=== PATIENT | male | born 1935 | race Caucasian/White ===

== ENCOUNTER 2016-09-28 08:55 | Inpatient (IN) | payer MEDICARE, MEDICAID ==
[~2016-09-28] VITALS: Ht 157.5 cm; Wt 78.5 kg
[~2016-09-28 08:55] MED LIST: /ALEN70TA OR; /ALEN70TA PO; /TAMS4CA OR; /TAMS4CA PO; ACET500C; ACET65TA; ACET65TA PO; ACTO45TA; ALPH0.156; ALPH0.156 OD; ASPI325T OR; BRIM1OPD OD; CALC12502; COLA100C2 OR; DORZOLAMIDE; ECOT325T5; FERR325T OR; FIBERCON PO; GLUC5TAB3 PO; ISOP1SOL; ISOP1SOL OD; KEFL500C OR; LACT10SO8; LACTULOSE 10 GM/15 ML PO; LASI40TA; LISI40TA; LOVA20TA2 PO; NEBUMIS2; NORV5TAB PO; OYSCO PO; OYST500T OR; OYST500T58 OR; THERGRAN PO; TIMO0.5S OD; TIMO0.5S3 OU; TRUSOPT; TRUSOPT 2% OU; TRUSOPT OU; ZYPR15TA PO; [UNRECOGNIZED DRUG - OTHER] PO
[2016-09-28] MEDS ORDERED: LISI-538 PO ×2 (09:35→12:32)
[2016-09-28] MEDS ORDERED: OLAN15TA PO ×2 (09:35→12:32)
[2016-09-28] MEDS ORDERED: LOVA20TA2 PO ×2 (09:35→12:32)
[2016-09-28] MEDS ORDERED: AZIT250T3 PO (09:35)
[2016-09-28] MEDS ORDERED: TIMO5OPD OU (09:35)
[2016-09-28] MEDS ORDERED: FLOM5CAP PO ×2 (09:35→12:32)
[2016-09-28] MEDS ORDERED: BRIM2OPD OU (09:35)
[2016-09-28] MEDS ORDERED: LACT20EL PO (09:35)
[2016-09-28] MEDS ORDERED: AMLO5TAB2 PO ×2 (09:35→12:32)
[2016-09-28] MEDS ORDERED: PILO1OPD OU (09:35)
[2016-09-28] MEDS ORDERED: FURO40TA2 PO ×2 (09:35→12:32)
[2016-09-28] MEDS ORDERED: FINA5TAB2 PO ×2 (09:35→12:32)
[2016-09-28] MEDS ORDERED: IPRATROPIUM 0.5MG/ALBUTEROL 2.5MG INH SOL UD 3ML (DUONEB)(J7620) As Ordered ONE (09:56)
[2016-09-28] MEDS ORDERED: IPRATROPIUM 0.5MG/ALBUTEROL 2.5MG INH SOL UD 3ML (DUONEB)(J7620) NEB ONE (10:00)
[2016-09-28 10:08] LABS: CREATININE FOR GFR 2.68 MG/DL (0.70-1.30); GLOMERULAR FILTRATION RATE 24.5 (>35); POTASSIUM SERUM 4.3 MEQ/L (3.5-5.1)
[2016-09-28 10:18] LABS: BASO % 0.1 % (0.0-1.0); EOS % 1.7 % (0.0-3.0); LARGE UNSTAINED CELL # 0.1 K/mm3 (0.0-0.4); LARGE UNSTAINED CELL % 2.9 % (0.0-4.0); LYMPH # 0.3 K/mm3 (1.5-4.5); MEAN CORPUSCULAR HEMOGLOBIN 30.7 pg (27.0-33.0); MEAN CORPUSCULAR VOLUME 93.1 fl (80.0-96.0); MONO # 0.2 K/mm3 (0.0-0.8); MONO % 7.2 % (0.0-5.0); NEUTROPHILS # 1.6 K/mm3 (1.8-7.7); NEUTROPHILS % 75.1 % (36.0-66.0); PLATELET COUNT, AUTOMATED 111 k/mm3 (150-450); RED CELL DISTRIBUTION WIDTH 12.9 % (11.5-14.5); WHITE BLOOD COUNT 2.2 K/mm3 (4.0-10.0)
--- NOTE | 2016-09-28 10:57 | REP ---
CHEST, TWO VIEWS: Two views of the chest are performed and compared to a prior study of 06/12/2015. There is somewhat poor ventilation. Chronic fibrotic changes are seen. There appears to be mild left basilar atelectasis/infiltrate in the retrocardiac region. Heart is not significantly enlarged. There is calcification of the thoracic aorta. The mediastinal silhouette is unchanged. There are degenerative changes of the spine. IMPRESSION: Chronic changes. Mild left lower lobe atelectasis/infiltrate. Signed by Lane Mitchell MD 09/29/2016 04:35 P
[2016-09-28] MEDS ORDERED: LACT10SO29 PO (12:32)
[2016-09-28] MEDS ORDERED: STOO100C PO (12:32)
[2016-09-28] MEDS ORDERED: FIBE625T PO (12:32)
[2016-09-28] MEDS ORDERED: TYLE500T78 PO (12:32)
[2016-09-28] MEDS ORDERED: ASPI325T PO (12:32)
[2016-09-28] MEDS ORDERED: DORZ2OPD OD (12:36)
[2016-09-28] MEDS ORDERED: PILO1OPD OD (12:36)
[2016-09-28] MEDS ORDERED: ALPH0.156 OD (12:36)
[2016-09-28] MEDS ORDERED: TIMO5OPD OD (12:36)
[2016-09-28] MEDS ORDERED: GLUCAGON FOR INJ 1 MG VIAL (J1610) SC PRN (12:45)
[2016-09-28] MEDS ORDERED: IPRATROPIUM 0.5MG/ALBUTEROL 2.5MG INH SOL UD 3ML (DUONEB)(J7620) NEB PRN (12:45)
[2016-09-28] MEDS ORDERED: GLUCOSE 4 GM CHEW TABLET PO PRN (12:45)
[2016-09-28] MEDS ORDERED: ONDANSETRON 4MG/2ML VIAL (J2405) IV PRN (12:45)
[2016-09-28] MEDS ORDERED: NS 1,000 ML IV ONE (12:45)
[2016-09-28] MEDS ORDERED: ONDANSETRON 4 MG TAB (S0181) PO PRN (12:45)
[2016-09-28] MEDS ORDERED: BENZONATATE 100 MG CAP PO PRN (12:45)
[2016-09-28] MEDS ORDERED: DEXTROSE 50% 50 ML SYRINGE IV PRN (12:45)
--- NOTE | 2016-09-28 12:59 | REP ---
CT study of the chest without contrast: History: Chronic fibrosis. Question left lower lobe infiltrate on chest x-ray. CT findings: There is no evidence of pleural effusion. A very small quantity of pericardial fluid is seen. There is left coronary artery vascular calcification and some aortic arch calcification is seen. No hilar or mediastinal mass or adenopathy is appreciated. There are somewhat crowded bronchovascular markings in the lower lobes bilaterally perhaps related to relatively low level of inspiration. No focal infiltrate is appreciated. No extrathoracic mass or adenopathy is appreciated. The tracheal airway is somewhat narrowed through the mid thoracic trachea with the air filled esophagus indenting its posterior wall. No esophageal or tracheal mass lesion is seen. The main pulmonary artery is somewhat prominent in diameter 3.8 cm. Question pulmonary arterial hypertension. No adrenal lesion is seen. There are gallstones visible in the dependent portion the gallbladder. The visualized upper abdominal structures are otherwise unremarkable. No bony destructive lesion is appreciated. Impression: 1. No focal infiltrate. Relatively low level of inspiration. 2. Tracheal airway is somewhat narrowed diffusely and indented by the esophagus posterior to it. Question tracheomalacia. No tracheal or esophageal mass lesion seen. 3. Cholelithiasis. 4. Somewhat dilated main pulmonary arteries may reflect pulmonary arterial hypertension. Signed by Chase Corbin MD 09/28/2016 05:45 P
--- NOTE | 2016-09-28 13:41 | HPEPDOC ---
Medical History and Physical Date of Admission Sep 28, 2016 at 12:39 History and Physical HISTORY AND PHYSICAL Date of admission: 09/28/2016 PCP: Dr. Daley and Dr. Sharpe Chief complaint: Breathing hard HPI: 80-year-old male with mental retardation, history of BPH status post TURP, history of anemia with prior GI bleed, chronic constipation with normal colonoscopy, diabetes mellitus type 2, blindness secondary to glaucoma, hypertension, hyperlipidemia, CK D stage III, COPD, osteoporosis with prior hip fracture, psychiatric disorder NOS who resides in a private home with his caregiver. His caregiver was concerned today that he was breathing hard so she sent him to the emergency department. The caregiver is not with him, and the patient is unable to participate in an interview. The information on this history and physical is obtained from discussion with the ER physician, the patient's housing case manager, and prior records. By report, the patient has had URI symptoms for the last 3 or 4 days and is on a Z-Natanael. He currently has taken 4 days worth of the Z-Natanael. In the last day or so he's been noted to have subjective fever, cough, and was breathing harder, so he was sent to the emergency department. The housing case manager tells me that when she spoke to the caregiver, the caregiver reported no other concerns. Upon review of prior records, it appears that the patient had a Santos catheter at some point, but when I asked the housing case manager about this, she tells me that he has not needed a Santos catheter in many years. Of note, I attempted to call the caregiver to obtain more information, but I received a voicemail. I left my name and the phone number for the answering service on the voicemail. Past medical history: mental retardation, history of BPH status post TURP, history of anemia with prior GI bleed, chronic constipation with normal colonoscopy, diabetes mellitus type 2, blindness secondary to glaucoma, hypertension, hyperlipidemia, CK D stage III, COPD, osteoporosis with prior hip fracture, psychiatric disorder NOS Past surgical history: TURP, repair of hip fracture, cataract surgery, appendectomy, hemorrhoidectomy Family history: Unknown Social history: Patient resides with his caregiver, whose name is Cindi Murphy. Her phone number is [phone]. His housing case manager is Jenn Marie, whose phone number is [phone]. Jenn tells me that the patient does not have any advanced directives. However, she thinks that it is possible that Cidni Murphy is the healthcare proxy. She states that Cindi Murphy usually makes the patient' s healthcare decisions, but she does not know if the patient has any legal paperwork to support this. He has a remote history of smoking, and does not drink any alcohol. Allergies: NKDA Review of systems: Unable to obtain secondary to the patient's mental retardation and decreased IQ Home meds: See below Physical exam: Vital signs: Vital Sign - Last 24 Hours 09/28/16 09/28/16 09/28/16 09/28/16 09:00 09:17 09:47 10:25 Temp 99.8 Pulse 95 88 Resp 28 B/P 111/50 Pulse Ox 87 O2 Delivery Room Air Nasal Cannula Nasal Cannula O2 Flow Rate 2 2 2 09/28/16 10:30 Temp 99.1 Pulse 84 Resp 22 B/P 116/57 Pulse Ox 97 O2 Delivery Nasal Cannula O2 Flow Rate 2 Gen.: awake, alert, no acute distress Eyes: Extraocular movements intact, right pupil is large and irregularly shaped ENT: Moist mucous membranes Cardiovascular: RRR, no murmurs rubs or gallops Lungs: diffuse rhonchi Abdomen: Soft, NT/ND, normal BS Musculoskeletal: normal range of motion Extremities: No peripheral edema Neuro: speech is extremely garbled; he is AAO to name and being in hospital; per the , this is baseline for him Labs and radiology: See below Sodium 148 BUN 76, creatinine 2.68 WBC 2.2, hemoglobin 9.5, platelets 111 MCV within normal limits Flu screen negative Chest x-ray shows concern for possible left lower lobe infiltrate versus atelectasis CT of the chest does not show any concern for infiltrate Assessment and plan: 80-year-old male with mental retardation, history of BPH status post TURP, history of anemia with prior GI bleed, chronic constipation with normal colonoscopy, diabetes mellitus type 2, blindness secondary to glaucoma, hypertension, hyperlipidemia, CK D stage III, COPD, osteoporosis with prior hip fracture, psychiatric disorder NOS who is admitted with acute on chronic kidney disease and pancytopenia. 1. Acute on chronic kidney disease stage III: The most recent creatinine we can find is from his PCPs records in February 2016. At this time, his creatinine was 1.5. Upon review of our EMR, it appears that his creatinine prior to that was also in the mid ones. In our ER, his creatinine is 2.68. I suspect that this is largely secondary to bladder outlet obstruction from enlarged prostate. The patient was having difficulty voiding while I was examining him, and a bladder scan did reveal greater than 600 mL. It is unknown if he has been having trouble urinating recently or not. However, given his history of BPH requiring TURP and even Santos catheter, I suspect that this is largely contributing. We' ll place a Santos catheter at this time. Additionally, we will check FEurea as the patient has been on Lasix, as well as renal ultrasound. Given that the patient has not been feeling well for the last week, I suspect that is also quite possible he has not been eating or drinking particularly well. We'll start him on some very gentle fluid hydration. We will hold his home Lasix and TIMOTHY inhibitor. We will also hold his home lactulose, as I'm concerned that this may contribute to volume depletion. 2. Pancytopenia: It is unclear where this is coming from. His MCV is within normal limits. We will check iron studies, B12, folate, and reticulocyte count. I do not believe that this needs to be entirely worked up while in the hospital , and I suspect that as his kidney function improves, he could follow up with hematology outpatient. He may eventually benefit from a peripheral smear. 3. URI: The patient's chest x-ray does not show any evidence of pneumonia, and he is afebrile. We will give him his one last dose of Zithromax tomorrow to complete his Z-Natanael. We also will use Tessalon Perles, DuoNeb's, and 3 days of Afrin for symptomatic treatment. A flu screen is negative, but we will check a respiratory virus panel. 4. Diabetes mellitus type 2: The patient's home medication list does not report any medications for this. We will check fingersticks and use sliding-scale insulin while in-house. 5. Chronic constipation: Continue home bowel regimen, with the exception of the lactulose. 6. Blindness secondary to glaucoma: Continue home eyedrops 7. BPH status post TURP: As mentioned above, I believe that this is contributing to his acute on chronic kidney disease. In addition to placing a Santos at this time, we will continue his home Flomax and finasteride. 8. Hypertension: Continue home Norvasc. We are holding his Lasix and TIMOTHY inhibitor given his acute on chronic kidney disease. 9. Hyperlipidemia: Continue home statin. 10. Psychiatric disorder NOS: Continue home Zyprexa. DVT prophylaxis: SCDs, given his chronic kidney disease and pancytopenia Dispo: admit as an inpatient to the service of Dr. Resendez CODE STATUS: Full code at this time. As mentioned above, his housing case manager is unaware of any advanced directives. His housing case manager states that Cindi Murphy usually makes his medical decisions, but she is unsure if Ms. Murphy has any legal power of tax associate attorney. I have attempted to call Ms. Murphy, and reach only a voicemail. Both Jenn's and Cindi's phone numbers are listed above under social history. Vital Signs see above Laboratory Data Labs 24H Laboratory Tests 2 09/28/16 09:38: Anion Gap 11, White Blood Count 2.2L, Red Blood Count 3.09L, Hemoglobin 9.5L, Hematocrit 28.7L, Mean Corpuscular Volume 93.1, Mean Corpuscular Hemoglobin 30.7 , Mean Corpuscular Hemoglobin Concent 33.0, Red Cell Distribution Width 12.9, Platelet Count 111L, Neutrophils (%) (Auto) 75.1H, Lymphocytes (%) (Auto) 13.0L , Monocytes (%) (Auto) 7.2H, Eosinophils (%) (Auto) 1.7, Basophils (%) (Auto) 0.1, Neutrophils # (Auto) 1.6L, Lymphocytes # (Auto) 0.3L, Monocytes # (Auto) 0.2, Eosinophils # (Auto) 0.0, Basophils # (Auto) 0.0, Blood Urea Nitrogen 76H, Creatinine 2.68H, Sodium Level 148H, Potassium Level 4.3, Chloride Level 110H, Carbon Dioxide Level 27, Calcium Level 8.0L, Glomerular Filtration Rate 24.5L, Large Unclassified Cells # 0.1, Large Unclassified Cells % 2.9 CBC/BMP Laboratory Tests 09/28/16 09:38 Calcium Level 8.0 L, Red Blood Count 3.09 L, Mean Corpuscular Volume 93.1, Mean Corpuscular Hemoglobin 30.7, Mean Corpuscular Hemoglobin Concent 33.0, Red Cell Distribution Width 12.9, Neutrophils (%) (Auto) 75.1 H, Lymphocytes (%) (Auto) 13.0 L, Monocytes (%) (Auto) 7.2 H, Eosinophils (%) (Auto) 1.7, Basophils (%) ( Auto) 0.1, Neutrophils # (Auto) 1.6 L, Lymphocytes # (Auto) 0.3 L, Monocytes # ( Auto) 0.2, Eosinophils # (Auto) 0.0, Basophils # (Auto) 0.0 Microbiology Microbiology 09/28/16 Influenza Virus Type A Antigen - Final, Complete 09/28/16 Influenza Virus Type B Antigen - Final, Complete Home Medications Scheduled Acetaminophen (Tylenol Extra Strength) 500 Mg Tab 1,000 MG PO BID Amlodipine Besylate (Amlodipine Besylate) 5 Mg Tab 5 MG PO DAILY Aspirin (Aspirin) 325 Mg Tab 325 MG PO DAILY Brimonidine Tartrate 0.15% (Alphagan P) 0.15 % Dimple 1 DROP OD DAILY Calcium Polycarbophil (Fibercon) 625 Mg Tab 625 MG PO BID Docusate Sodium (Stool Softener) 100 Mg Cap 100 MG PO BID Dorzolamide HCl (Dorzolamide HCl) 200 Drop/10 Ml Soln 1 DROP OD DAILY Finasteride (Finasteride) 5 Mg Tab 5 MG PO DAILY Furosemide (Furosemide) 40 Mg Tab 40 MG PO DAILY Lactulose (Lactulose) 10 Gm/15 Ml Dimple 30 ML PO DAILY Lisinopril (Lisinopril) 20 Mg Tab 20 MG PO DAILY Lovastatin (Lovastatin) 20 Mg Tab 20 MG PO DAILY Olanzapine (Olanzapine) 15 Mg Tab 15 MG PO DAILY Pilocarpine HCl (Pilocarpine HCl) 1 % Dimple 1 DROP OD DAILY Tamsulosin Hydrochloride (Flomax) 0.4 Mg Cap 1 CAP PO DAILY Timolol Maleate (Timolol Maleate) 0.5 % Dimple 1 DROP OD DAILY Allergies Coded Allergies: No Known Allergies (Verified Allergy, Unknown, 02/17/03) MIQUEL KENNY Sep 28, 2016 13:41
[2016-09-28] MEDS ORDERED: NS 1,000 ML IV SCH (14:00)
[2016-09-28 14:30] VITALS: BP 149/68
--- NOTE | 2016-09-28 14:55 | REP ---
Urinary tract sonography: History: Increased creatinine. Comparison sonography December 18, 2014. Findings: Scanning through the urinary bladder demonstrates a Santos catheter and otherwise largely empty urinary bladder. Renal cortical echogenicity pattern normal. There is no evidence of hydronephrosis on either side. There is a 2.0 x 2.2 x 1.6 cm cyst in the upper pole of the left kidney. No calculus or mass is seen on either side. Right renal dimensions are 10.1 x 5.1 x 5.0 cm. Left renal dimensions are 9.9 x 4.1 x 5.8 cm. Impression: Small cortical cyst upper pole left kidney otherwise unremarkable urinary tract sonography. Santos catheter in the urinary bladder. Signed by Chase Corbin MD 09/28/2016 05:45 P
[2016-09-28] MEDS: OXYMETAZOLINE NASAL SPRAY (AFRIN) SCH ×2 (15:22→21:29)
[2016-09-28 15:26] LABS: RETIC HEMOGLOBIN CONTENT CHr 28.7 PG (24-36); RETICULOCYTE ABSOLUTE ADVIA212 29 x10(9)/L (17-77)
[2016-09-28 15:36] LABS: PERCENT SATURATION 13.7 % (19.7-37.4)
[2016-09-28 15:43] LABS: FOLATE > 24.0 NG/ML (>5.4); VITAMIN B12 LEVEL 570 PG/ML (247-911)
[2016-09-28] MEDS: HumaLOG INSULIN (NovoLOG) PER UNIT SC SCH ×2 (17:23→21:26)
[2016-09-28] MEDS: DOCUSATE SODIUM 100 MG CAP PO SCH (21:28)
[2016-09-28] MEDS: FIBER-CON 625 MG TAB PO SCH (21:28)
[2016-09-28] MEDS: NYSTATIN 100,000 UNITS/GM TOPICAL PWD 15 GM TOP SCH (21:29)
[2016-09-28] MEDS: ACETAMINOPHEN TAB 650MG DOSE (2X325MG) PO PRN (21:29)
[2016-09-28 22:00] VITALS: BP 148/65
[2016-09-29] MEDS: ACETAMINOPHEN TAB 650MG DOSE (2X325MG) PO PRN (02:02)
[2016-09-29 06:00] VITALS: BP 137/76
[2016-09-29 07:10] LABS: EOS % 0.6 % (0.0-3.0); LARGE UNSTAINED CELL # 0.1 K/mm3 (0.0-0.4); LARGE UNSTAINED CELL % 1.1 % (0.0-4.0); LYMPH # 0.6 K/mm3 (1.5-4.5); LYMPH % 11.4 % (24.0-44.0); MEAN CORPUSCULAR HEMOGLOBIN 30.6 pg (27.0-33.0); MEAN CORPUSCULAR HGB CONC 32.3 g/dl (32.0-36.5); MEAN CORPUSCULAR VOLUME 94.8 fl (80.0-96.0); MONO # 0.3 K/mm3 (0.0-0.8); MONO % 6.3 % (0.0-5.0); NEUTROPHILS # 4.1 K/mm3 (1.8-7.7); NEUTROPHILS % 80.7 % (36.0-66.0); PLATELET COUNT, AUTOMATED 117 k/mm3 (150-450); RED CELL DISTRIBUTION WIDTH 12.8 % (11.5-14.5); WHITE BLOOD COUNT 5.1 K/mm3 (4.0-10.0)
[2016-09-29 07:22] LABS: ANION GAP 10 MEQ/L (8-16); BLOOD UREA NITROGEN 60 MG/DL (7-18); CALCIUM LEVEL 8.4 MG/DL (8.8-10.2); CARBON DIOXIDE LEVEL 27 MEQ/L (21-32); CHLORIDE LEVEL 111 MEQ/L (98-107); CREATININE FOR GFR 1.88 MG/DL (0.70-1.30); GLOMERULAR FILTRATION RATE 36.8 (>35); GLUCOSE, FASTING 144 MG/DL (83-110); MAGNESIUM LEVEL 2.2 MG/DL (1.8-2.4); POTASSIUM SERUM 4.4 MEQ/L (3.5-5.1); SODIUM LEVEL 148 MEQ/L (136-145)
[2016-09-29] MEDS: PILOCARPINE 1% OPHTH SOLN 15 ML OD SCH (08:10)
[2016-09-29] MEDS: TIMOLOL MALEATE 0.5% OPHTH SOLN 5 ML OD SCH (08:10)
[2016-09-29] MEDS: OXYMETAZOLINE NASAL SPRAY (AFRIN) SCH ×2 (08:10→22:34)
[2016-09-29] MEDS: NYSTATIN 100,000 UNITS/GM TOPICAL PWD 15 GM TOP SCH ×2 (08:11→22:34)
[2016-09-29] MEDS: OLANZapine 5 MG TAB PO SCH (08:12)
[2016-09-29] MEDS: SIMVASTATIN 20 MG TAB PO SCH (08:12)
[2016-09-29] MEDS: FINASTERIDE 5 MG TAB PO SCH (08:12)
[2016-09-29] MEDS: DOCUSATE SODIUM 100 MG CAP PO SCH ×2 (08:12→22:33)
[2016-09-29] MEDS: HumaLOG INSULIN (NovoLOG) PER UNIT SC SCH ×4 (08:12→21:00)
[2016-09-29] MEDS: TAMSULOSIN 0.4 MG CAP PO SCH (08:12)
[2016-09-29] MEDS: FIBER-CON 625 MG TAB PO SCH ×2 (08:12→22:34)
[2016-09-29] MEDS: amLODIPine 5 MG TAB PO SCH (08:14)
[2016-09-29] MEDS: ASPIRIN 325 MG TAB PO SCH (08:19)
[2016-09-29] MEDS ORDERED: AZITHROMYCIN 250 MG TAB PO ONE (09:00)
[2016-09-29 09:08] LABS: AST/SGOT 25 U/L (15-37); BILIRUBIN,TOTAL 0.3 MG/DL (0.2-1.0); TOTAL PROTEIN 6.9 GM/DL (6.4-8.2)
[2016-09-29 09:26] LABS: ALKALINE PHOSPHATASE 56 U/L (45-117); ALT/SGPT 20 U/L (12-78); BILIRUBIN,DIRECT < 0.1 MG/DL (0.0-0.2)
[2016-09-29] MEDS: FERROUS GLUCONATE 324 MG TAB PO SCH (10:11)
[2016-09-29] MEDS: BRIMONIDINE 0.15% OPHTH SOLN 5 ML OD SCH (10:11)
[2016-09-29] MEDS: D5W/0.45% SODIUM CHLORIDE 1,000 ML IV SCH ×2 (10:12→22:35)
[2016-09-29] MEDS: DORZOLAMIDE 2% OPHTH SOLN 10 ML BTL OD SCH (10:12)
[2016-09-29] MEDS ORDERED: MORPHINE SULFATE CADD 100 MG in APPROPRIATE DILUENT 1 EA IV SCH (10:29)
[2016-09-29] MEDS ORDERED: LORazepam 2 MG/ML VIAL (J2060) IV PRN (10:30)
[2016-09-29] MEDS ORDERED: MORPHINE 10MG/0.5ML ORAL CONCENTRATE SOLUTION U/D SL PRN (10:30)
[2016-09-29] MEDS ORDERED: MORPHINE 2 MG/ML 1ML SYRINGE IV PRN (10:30)
[2016-09-29] MEDS ORDERED: EPIDURAL/PCA KEYS XX PRN (10:30)
[2016-09-29] MEDS ORDERED: SCOPOLAMINE 1.5 MG TRANSDERMAL TD PRN (10:30)
[2016-09-29] MEDS ORDERED: guaiFENesin SYRUP 200 MG/10 ML UDC PO PRN (11:15)
[2016-09-29 14:00] VITALS: BP 119/55
[2016-09-29 14:29] LABS: ALBUMIN 3.4 GM/DL (3.2-5.2); ALBUMIN/GLOBULIN RATIO 0.97 (1.00-1.93)
[2016-09-29] MEDS: cefTRIAXone SOD 1 GM in D5W MINI-BAG PLUS 50 ML IV SCH (15:43)
--- NOTE | 2016-09-29 15:59 | IPN ---
DATE: 09/29/2016 Time patient was seen was this morning at 10:20. The patient has been seen and examined at bedside. The patient had a fever last night. Highest temperature was 101.4 at 3:38. At the time of interview, the patient does respond to questions, knows his name and knows the location; however, not the year. Was able to follow some of the commands but not all the commands. Denies any chest pain, abdominal pain. Detailed interview could not be performed due to patient does not communicate well due to patient has mental retardation. PHYSICAL EXAMINATION: VITAL SIGNS: Temperature 98.6, pulse 88, respirations 19, blood pressure 137/76, oxygen saturation 95% on 2 liters nasal cannula. GENERAL: The patient is mentally disabled, elderly gentleman who was able to respond to some of the questions; however, he garbles and does not pronounce words accurately and does not follow all the commands. He is also blind and does not move his eyes. He was able to move arms and legs, however, does not follow more detailed questions. HEENT: The patient is blind. Otherwise, atraumatic. Mucous membranes moist. There were excessive secretions in his mouth. Neck was supple. No neck lymphadenopathy noted. LUNGS: Diffuse rhonchi bilaterally. CARDIOVASCULAR: Difficult to auscultate due to increased AP diameter. ABDOMEN: Positive bowel sounds. Soft, nontender, nondistended. No peritoneal signs. No ecchymoses. Obese. EXTREMITIES: No edema, clubbing, or cyanosis. SKIN: Warm and dry. NEUROLOGIC: Cranial nerves could not be fully assessed due to patient does not follow commands and he is blind. LABORATORY DATA: WBC 5.1, hemoglobin 9.7, hematocrit 20.1 with platelet count of 117. Sodium 148, potassium 4.4, chloride 111, bicarbonate 27, BUN 60, creatinine 1.88, GFR 68.8, fasting glucose 144, calcium 8.4, magnesium 2.2. The patient's iron was 31, total iron binding capacity was 227, transferrin was 17.7, ferritin was 274, total bilirubin was 0.3, AST 25, ALT 20, alkaline phosphatase 56, LDH was 164, total protein 6.9, albumin 3.4. The patient had a urinalysis this morning that shows 2+ blood, 1+ leukocyte esterase, 12 WBC, 60 RBC and 1+ bacteria. Respiratory panel shows positive for influenza B. GI panel has been negative. ASSESSMENT AND PLAN: 80-year-old male with mental retardation, benign prostatic hypertrophy (BPH) , status post transurethral resection of prostate (TURP), history of anemia with prior gastrointestinal bleed, chronic constipation with normal colonoscopy, type 2 diabetes, blindness secondary to glaucoma, hypertension, hyperlipidemia, chronic kidney disease stage III, chronic obstructive pulmonary disease (COPD), osteoporosis with prior hip fracture and psychiatric disorder, who presented with: 1. Acute on chronic kidney disease stage III. The patient's creatinine continues to improve. Today it is 1.9. The patient's baseline is 1.5. We will continue the Santos due to the patient does appear to have urinary retention on admission. FENa was calculated to be 3.5; however, it was unreliable due to patient was on Lasix at home. Urea excretion has been ordered, result pending. We will followup. At this point, we will hold Lasix and bwqdomqezua-upkzamutxx-imerza (TIMOTHY) inhibitor. 2. Pancytopenia, likely secondary to chronic kidney disease and also iron deficiency. We will start iron supplementation. 3. Upper respiratory infection. Chest x-ray did not show any pneumonia; however, the patient did receive a Z-Pack a few days ago. We will continue to monitor. 4. Influenza B infection on the respiratory panel, which explains the patient's fever last night. We will continue to monitor. 5. Possible acute urinary tract infection. The patient does have a positive UA this morning. However, the patient is on a Santos. We will start the patient on Rocephin 1 gram every 24 hours for now and followup with a culture. 6. Type 2 diabetes. Continue insulin sliding scale. 7. Chronic constipation. Continue bowel regimen. The patient did have some diarrhea this morning. Gastrointestinal panel was ordered and it was negative. Continue to monitor. 8. Blindness secondary to glaucoma. Continue eye drops. 9. Benign prostatic hypertrophy (BPH) , status post TURP. We will continue Santos and continue Flomax and finasteride. 10. Hypertension. Continue to hold Norvasc. We will hold TIMOTHY and Lasix for now due to acute on chronic kidney disease. 11. Hyperlipidemia. Continue home statin. 12. Psychiatric disease, not otherwise specified. Continue Zyprexa. 13. Deep vein thrombosis (DVT) prophylaxis. On sequential compression device (SCD). DISPOSITION: We will continue to monitor and treat the patient's possible underlying infection and we will continue to monitor the patient. The patient has been discussed with attending doctor, Dr. Resendez. My preceptor for this patient encounter was Dr. Resendez. The preceptor was physically present in the building during the encounter and was fully available. As needed, all aspects of the patient interview, examination, medical decision making process, and medical care plan development were reviewed and approved by the preceptor. The preceptor is aware and concurs with the plan as stated in the body of this note and will attest to such by his/her cosignature.
[2016-09-29] MEDS: IPRATROPIUM 0.5MG/ALBUTEROL 2.5MG INH SOL UD 3ML (DUONEB)(J7620) NEB SCH ×3 (16:00→23:33)
[2016-09-29] MEDS ORDERED: ALBUTEROL SULFATE 2.5 MG/0.5 ML INH NEB SOLN INH PRN (16:45)
[2016-09-29 21:05] VITALS: BP 127/57
[2016-09-29] MEDS: guaiFENesin ER 600 MG TAB PO SCH (22:33)
[2016-09-30] MEDS: IPRATROPIUM 0.5MG/ALBUTEROL 2.5MG INH SOL UD 3ML (DUONEB)(J7620) NEB SCH ×6 (03:27→23:49)
[2016-09-30 05:05] VITALS: BP 121/57
[2016-09-30] MEDS: ACETAMINOPHEN TAB 650MG DOSE (2X325MG) PO PRN (06:11)
[2016-09-30 06:23] LABS: BASO % 0.2 % (0.0-1.0); EOS % 1.3 % (0.0-3.0); LARGE UNSTAINED CELL # 0.1 K/mm3 (0.0-0.4); LARGE UNSTAINED CELL % 1.6 % (0.0-4.0); LYMPH # 0.8 K/mm3 (1.5-4.5); LYMPH % 17.6 % (24.0-44.0); MEAN CORPUSCULAR HEMOGLOBIN 30.7 pg (27.0-33.0); MEAN CORPUSCULAR HGB CONC 32.2 g/dl (32.0-36.5); MEAN CORPUSCULAR VOLUME 95.4 fl (80.0-96.0); MONO # 0.2 K/mm3 (0.0-0.8); MONO % 5.8 % (0.0-5.0); NEUTROPHILS % 73.5 % (36.0-66.0); PLATELET COUNT, AUTOMATED 116 k/mm3 (150-450); RED CELL DISTRIBUTION WIDTH 12.9 % (11.5-14.5)
[2016-09-30 06:45] LABS: CALCIUM LEVEL 7.9 MG/DL (8.8-10.2); CREATININE FOR GFR 1.7 MG/DL (0.70-1.30); GLOMERULAR FILTRATION RATE 41.4 (>35); MAGNESIUM LEVEL 2.4 MG/DL (1.8-2.4); POTASSIUM SERUM 4.1 MEQ/L (3.5-5.1)
[2016-09-30] MEDS: DORZOLAMIDE 2% OPHTH SOLN 10 ML BTL OD SCH (08:04)
[2016-09-30] MEDS: BRIMONIDINE 0.15% OPHTH SOLN 5 ML OD SCH (08:04)
[2016-09-30] MEDS: OXYMETAZOLINE NASAL SPRAY (AFRIN) SCH ×2 (08:04→21:23)
[2016-09-30] MEDS: PILOCARPINE 1% OPHTH SOLN 15 ML OD SCH (08:04)
[2016-09-30] MEDS: HumaLOG INSULIN (NovoLOG) PER UNIT SC SCH ×4 (08:04→21:23)
[2016-09-30] MEDS: ASPIRIN 325 MG TAB PO SCH (08:05)
[2016-09-30] MEDS: guaiFENesin ER 600 MG TAB PO SCH ×2 (08:05→21:22)
[2016-09-30] MEDS: FINASTERIDE 5 MG TAB PO SCH (08:05)
[2016-09-30] MEDS: TAMSULOSIN 0.4 MG CAP PO SCH (08:05)
[2016-09-30] MEDS: FIBER-CON 625 MG TAB PO SCH ×2 (08:05→21:22)
[2016-09-30] MEDS: DOCUSATE SODIUM 100 MG CAP PO SCH ×2 (08:05→21:22)
[2016-09-30] MEDS: amLODIPine 5 MG TAB PO SCH (08:05)
[2016-09-30] MEDS: FERROUS GLUCONATE 324 MG TAB PO SCH (08:05)
[2016-09-30] MEDS: TIMOLOL MALEATE 0.5% OPHTH SOLN 5 ML OD SCH (08:06)
[2016-09-30] MEDS: OLANZapine 5 MG TAB PO SCH (08:06)
[2016-09-30] MEDS: SIMVASTATIN 20 MG TAB PO SCH (08:06)
[2016-09-30] MEDS: NYSTATIN 100,000 UNITS/GM TOPICAL PWD 15 GM TOP SCH ×2 (08:07→21:23)
[2016-09-30] MEDS: PERCOCET 5MG/325MG TAB PO PRN ×2 (09:22→16:10)
[2016-09-30] MEDS: predniSONE 10 MG TAB PO SCH (10:29)
--- NOTE | 2016-09-30 10:40 | REP ---
Portable chest x-ray: Single view. History: Abnormal breath sounds. Comparison study September 28, 2016. Findings: The lungs are exposed at a relatively low level of inspiration as on the prior study. Cardiac size is mildly prominent. Vascular and interstitial markings are diffusely somewhat prominent essentially unchanged. No acute or focal infiltrate is appreciated. No piotr pleural effusion is seen. No new infiltrate is seen. Signed by Chase Corbin MD 09/30/2016 10:46 A
--- NOTE | 2016-09-30 13:52 | IPNPDOC ---
Text Note Date of Service The patient was seen on 09/30/16. NOTE Subjective: Pt states he feels well. Has a slight headache. Dyspnea is improving. Objective: Vitals: (see below) General: No acute distress, laying comfortably in bed. HEENT: Moist mucous membranes. Neck: No JVD or lymphadenopathy Cardiac: RRR, No murmurs Pulm: B/l ronchi and wheezing. Fine crackles b/l bases. No stridor. Abd: NT/ND + BS Ext: No edema or cyanosis Labs (see below) Images: CT Chest 09/30/16 Impression: 1. No focal infiltrate. Relatively low level of inspiration. 2. Tracheal airway is somewhat narrowed diffusely and indented by the esophagus posterior to it. Question tracheomalacia. No tracheal or esophageal mass lesion seen. 3. Cholelithiasis. 4. Somewhat dilated main pulmonary arteries may reflect pulmonary arterial hypertension. Renal U/S 09/30/16 Impression: Small cortical cyst upper pole left kidney otherwise unremarkable urinary tract sonography. Santos catheter in the urinary bladder. Assessment/Plan 1. Acute Hypoxic Resp failure 2/2 Influenza. Had completed 4 days of Azithro. Pt presented > 3 days initial symptoms; tamiflu held. Nebs. Mucinex. Start prednisone. 2. ED on CKD - Renal function improving. Pt has been on lasix and ACEi that have been held. Gentle hydration. Strict I/O. Avoid nephrotoxins. 3. Pancytopenia - Likely 2/2 viral infection; will continue to monitor 4. DM - SSI for now 5. Constipation - cont home regimen except for lactulose. 6. HLD on statin 7. Psychiatric d/o NOS - on Zyprexa 8. Baseline mental retardation with minimal verbal communication; I have been updating his director of research and development on his status. 9. ?Tracheomalacia - Will need outpt pulmonary f/u. 10. Hypernatremia- improved; likely 2/2 dehydration. DVT prophy: SCDs VS,Fishbone, I+O VS, Fishbone, I+O Laboratory Tests 09/30/16 05:28 Calcium Level 7.9 L, Red Blood Count 2.90 L, Mean Corpuscular Volume 95.4, Mean Corpuscular Hemoglobin 30.7, Mean Corpuscular Hemoglobin Concent 32.2, Red Cell Distribution Width 12.9, Neutrophils (%) (Auto) 73.5 H, Lymphocytes (%) (Auto) 17.6 L, Monocytes (%) (Auto) 5.8 H, Eosinophils (%) (Auto) 1.3, Basophils (%) ( Auto) 0.2, Neutrophils # (Auto) 3.0, Lymphocytes # (Auto) 0.8 L, Monocytes # ( Auto) 0.2, Eosinophils # (Auto) 0.0, Basophils # (Auto) 0.0 Vital Signs Date Time Temp Pulse Resp B/P Pulse Ox O2 Delivery O2 Flow Rate FiO2 09/30/16 10:00 18 Nasal Cannula 2.0 09/30/16 08:05 80 134/62 09/30/16 05:05 97.7 92 I&O- Last 24 Hours up to 6 AM 09/30/16 06:00 Intake Total 2945 ml Output Total 1100 ml Balance 1845 ml ANGELICA BREAUX MD Sep 30, 2016 13:52
[2016-09-30 14:00] VITALS: BP 133/63
[2016-09-30] MEDS: cefTRIAXone SOD 1 GM in D5W MINI-BAG PLUS 50 ML IV SCH (14:54)
[2016-09-30 21:15] VITALS: BP 121/60
[2016-10-01] MEDS: ACETAMINOPHEN TAB 650MG DOSE (2X325MG) PO PRN ×2 (01:56→20:48)
[2016-10-01] MEDS: IPRATROPIUM 0.5MG/ALBUTEROL 2.5MG INH SOL UD 3ML (DUONEB)(J7620) NEB SCH ×6 (03:01→23:21)
[2016-10-01 05:25] VITALS: BP 143/66
[2016-10-01 06:34] LABS: BASO % 0.3 % (0.0-1.0); EOS % 0.9 % (0.0-3.0); LARGE UNSTAINED CELL # 0.1 K/mm3 (0.0-0.4); LARGE UNSTAINED CELL % 1.2 % (0.0-4.0); LYMPH # 0.5 K/mm3 (1.5-4.5); LYMPH % 11.1 % (24.0-44.0); MEAN CORPUSCULAR HEMOGLOBIN 30.2 pg (27.0-33.0); MEAN CORPUSCULAR HGB CONC 31.7 g/dl (32.0-36.5); MEAN CORPUSCULAR VOLUME 95.3 fl (80.0-96.0); MONO # 0.2 K/mm3 (0.0-0.8); MONO % 3.5 % (0.0-5.0); NEUTROPHILS # 3.9 K/mm3 (1.8-7.7); PLATELET COUNT, AUTOMATED 121 k/mm3 (150-450); RED CELL DISTRIBUTION WIDTH 12.9 % (11.5-14.5); WHITE BLOOD COUNT 4.7 K/mm3 (4.0-10.0)
[2016-10-01 06:47] LABS: CALCIUM LEVEL 8.5 MG/DL (8.8-10.2); CREATININE FOR GFR 1.77 MG/DL (0.70-1.30); GLOMERULAR FILTRATION RATE 39.5 (>35); MAGNESIUM LEVEL 2.6 MG/DL (1.8-2.4); POTASSIUM SERUM 4.4 MEQ/L (3.5-5.1)
[2016-10-01] MEDS ORDERED: NS 1,000 ML IV SCH (07:30)
[2016-10-01] MEDS: FIBER-CON 625 MG TAB PO SCH ×2 (08:43→20:48)
[2016-10-01] MEDS: FERROUS GLUCONATE 324 MG TAB PO SCH (08:43)
[2016-10-01] MEDS: predniSONE 10 MG TAB PO SCH (08:43)
[2016-10-01] MEDS: OLANZapine 5 MG TAB PO SCH (08:43)
[2016-10-01] MEDS: SIMVASTATIN 20 MG TAB PO SCH (08:43)
[2016-10-01] MEDS: ASPIRIN 325 MG TAB PO SCH (08:43)
[2016-10-01] MEDS: DOCUSATE SODIUM 100 MG CAP PO SCH ×2 (08:43→20:48)
[2016-10-01] MEDS: guaiFENesin ER 600 MG TAB PO SCH ×2 (08:43→20:48)
[2016-10-01] MEDS: FINASTERIDE 5 MG TAB PO SCH (08:43)
[2016-10-01] MEDS: TAMSULOSIN 0.4 MG CAP PO SCH (08:43)
[2016-10-01] MEDS: HumaLOG INSULIN (NovoLOG) PER UNIT SC SCH ×4 (08:44→20:41)
[2016-10-01] MEDS: NYSTATIN 100,000 UNITS/GM TOPICAL PWD 15 GM TOP SCH ×2 (08:45→20:49)
[2016-10-01] MEDS: TIMOLOL MALEATE 0.5% OPHTH SOLN 5 ML OD SCH (08:45)
[2016-10-01] MEDS: BRIMONIDINE 0.15% OPHTH SOLN 5 ML OD SCH (08:45)
[2016-10-01] MEDS: PILOCARPINE 1% OPHTH SOLN 15 ML OD SCH (08:45)
[2016-10-01] MEDS: DORZOLAMIDE 2% OPHTH SOLN 10 ML BTL OD SCH (08:45)
[2016-10-01] MEDS: amLODIPine 5 MG TAB PO SCH (08:47)
--- NOTE | 2016-10-01 13:21 | IPN ---
DATE OF SERVICE: 10/01/2016 TIME SEEN: 8:00 a.m. Patient was seen and examined at bedside. No acute events overnight. Patient is feeling better. Denies any discomfort anywhere. Breathing has improved, as well. When patient was seen, he was working with physical therapy and he was able to take steps and respond to physical therapy direction well. Otherwise, patient denies any other current new complaints. PHYSICAL EXAMINATION: VITAL SIGNS: Temperature 98, pulse 98, respirations 23, blood pressure 143/66, oxygen saturation 90% on 2 liters nasal cannula. GENERAL: Patient is a mentally disabled, elderly male who was alert, awake, oriented to self and place only. Does not appear to be in distress. Lying comfortably in bed with head elevated at 30 degrees. HEENT: Normocephalic, atraumatic. Patient is blind. Mucous membranes moist. NECK: Supple. No neck lymphadenopathy. CARDIOVASCULAR: Regular rate and rhythm. Difficult to auscultate due to increased anteroposterior (AP) diameter. LUNGS: Diffuse coarse rhonchi bilaterally. ABDOMEN: Positive bowel sounds. Soft and nontender. There are no peritoneal signs. No ecchymosis. EXTREMITIES: No edema, clubbing, or cyanosis. SKIN: Warm and dry. NEUROLOGIC: Cranial nerves could not be fully assessed due to patient is demented and blind. LABORATORIES: WBC 4.7, hemoglobin 9.2, hematocrit 39, with MCV of 95.3 and platelet count of 121. Sodium 147, potassium 4.4, chloride 110, bicarbonate 32, BUN 46, creatinine 1.77, GFR 39.5, with a fasting glucose of 182, calcium 8.5, magnesium elevated at 2.6. Brain natriuretic peptide (BNP), however, was 93.7. No new imaging. ASSESSMENT AND PLAN: An 80-year-old male with mental disability, benign prostatic hypertrophy (BPH) status post transurethral resection of the prostate (TURP), history of anemia with prior gastrointestinal (GI) bleed, chronic constipation with normal colonoscopy, type 2 diabetes, blindness secondary to glaucoma, hypertension, hyperlipidemia, chronic kidney disease stage III, chronic obstructive pulmonary disease (COPD), osteoporosis with prior hip fracture, and psychiatric disorder, presented with: 1. Acute hypoxic respiratory failure secondary to influenza. Has completed four days of azithromycin, presented with three days of initial symptoms. Tamiflu, nebulizers and Mucinex. Patient has also been started on prednisone 30 mg. 2. Acute on chronic kidney disease. Renal function improved initially; however, worsened slightly this morning, at 1.77 from 1.7. Will start gentle hydration with normal saline at the rate of 40 mL per hour and will avoid nephrotoxic agents. 3. Pancytopenia, likely secondary to viral infection. Will continue to monitor. 4. Type 2 diabetes. On insulin sliding scale. 5. Constipation. On home regimen. 6. Hyperlipidemia. On statin. 7. Psychiatric disease, not otherwise specified. Zyprexa. 8. Baseline mental disability with minimal verbal communication, which complicates care. 9. Questionable tracheomalacia on CT. Patient may need outpatient followup with pulmonary. 10. Hypernatremia. Improved. Likely secondary to dehydration. 11. Hypermagnesemia. Likely secondary to dehydration. 12. Deep venous thrombosis (DVT) prophylaxis. On sequential compression devices (SCDs). DISPOSITION: Patient's breathing has improved; however, still has a lot of rhonchi in the lungs. Will continue chest physical therapy (PT). Continue antibiotics and continue to monitor patient. Patient has been discussed with attending doctor, Dr. Resendez. My preceptor for this patient encounter was Dr. Amilcar Resendez. The preceptor was physically present in the building during the encounter and was fully available as needed. All aspects of the patient interview, examination, medical decision-making process, and medical care plan development were reviewed and approved by the preceptor. The preceptor is aware and concurs with the plan as stated in the body of this note and will attest to such by his/her co-signature.
[2016-10-01] MEDS ORDERED: CEPACOL LOZENGE MT PRN (13:45)
[2016-10-01 14:00] VITALS: BP 130/70
[2016-10-01] MEDS: cefTRIAXone SOD 1 GM in D5W MINI-BAG PLUS 50 ML IV SCH (14:36)
[2016-10-01] MEDS: PERCOCET 5MG/325MG TAB PO PRN (17:20)
[2016-10-01 20:30] VITALS: BP 130/61
[2016-10-02] MEDS: IPRATROPIUM 0.5MG/ALBUTEROL 2.5MG INH SOL UD 3ML (DUONEB)(J7620) NEB SCH ×6 (03:04→23:35)
[2016-10-02 05:15] VITALS: BP 150/69
[2016-10-02 06:26] LABS: BASO % 0.1 % (0.0-1.0); LARGE UNSTAINED CELL % 0.9 % (0.0-4.0); LYMPH # 0.4 K/mm3 (1.5-4.5); LYMPH % 8.9 % (24.0-44.0); MEAN CORPUSCULAR HEMOGLOBIN 30.4 pg (27.0-33.0); MEAN CORPUSCULAR HGB CONC 30.9 g/dl (32.0-36.5); MEAN CORPUSCULAR VOLUME 98.4 fl (80.0-96.0); MONO # 0.2 K/mm3 (0.0-0.8); NEUTROPHILS # 3.7 K/mm3 (1.8-7.7); NEUTROPHILS % 85.1 % (36.0-66.0); PLATELET COUNT, AUTOMATED 132 k/mm3 (150-450); RED CELL DISTRIBUTION WIDTH 12.7 % (11.5-14.5); WHITE BLOOD COUNT 4.3 K/mm3 (4.0-10.0)
[2016-10-02 06:55] LABS: CREATININE FOR GFR 1.61 MG/DL (0.70-1.30); GLOMERULAR FILTRATION RATE 44.1 (>35); MAGNESIUM LEVEL 2.7 MG/DL (1.8-2.4); POTASSIUM SERUM 4.7 MEQ/L (3.5-5.1)
[2016-10-02] MEDS: amLODIPine 5 MG TAB PO SCH (08:36)
[2016-10-02] MEDS: DORZOLAMIDE 2% OPHTH SOLN 10 ML BTL OD SCH (08:36)
[2016-10-02] MEDS: ASPIRIN 325 MG TAB PO SCH (08:37)
[2016-10-02] MEDS: FERROUS GLUCONATE 324 MG TAB PO SCH (08:37)
[2016-10-02] MEDS: SIMVASTATIN 20 MG TAB PO SCH (08:37)
[2016-10-02] MEDS: TAMSULOSIN 0.4 MG CAP PO SCH (08:37)
[2016-10-02] MEDS: FIBER-CON 625 MG TAB PO SCH ×2 (08:37→22:26)
[2016-10-02] MEDS: DOCUSATE SODIUM 100 MG CAP PO SCH ×2 (08:37→22:26)
[2016-10-02] MEDS: HumaLOG INSULIN (NovoLOG) PER UNIT SC SCH ×4 (08:37→21:00)
[2016-10-02] MEDS: FINASTERIDE 5 MG TAB PO SCH (08:37)
[2016-10-02] MEDS: NYSTATIN 100,000 UNITS/GM TOPICAL PWD 15 GM TOP SCH ×2 (08:38→22:27)
[2016-10-02] MEDS: predniSONE 10 MG TAB PO SCH (08:38)
[2016-10-02] MEDS: BRIMONIDINE 0.15% OPHTH SOLN 5 ML OD SCH (08:38)
[2016-10-02] MEDS: PILOCARPINE 1% OPHTH SOLN 15 ML OD SCH (08:38)
[2016-10-02] MEDS: TIMOLOL MALEATE 0.5% OPHTH SOLN 5 ML OD SCH (08:38)
[2016-10-02] MEDS: OLANZapine 5 MG TAB PO SCH (08:38)
[2016-10-02] MEDS: guaiFENesin ER 600 MG TAB PO SCH ×2 (08:38→22:26)
[2016-10-02] MEDS: D5W 1,000 ML IV SCH ×2 (08:55→18:15)
--- NOTE | 2016-10-02 13:55 | IPNPDOC ---
Text Note Date of Service The patient was seen on 10/02/16. NOTE Subjective: Pt states he feels well. Dyspnea is improving. Had hematuria with clots last night. Objective: Vitals: (see below) General: No acute distress, laying comfortably in bed. HEENT: Moist mucous membranes. Neck: No JVD or lymphadenopathy Cardiac: RRR, No murmurs Pulm: B/l ronchi and wheezing. Fine crackles b/l bases. No stridor. Abd: NT/ND + BS. Jackson with blood clots. Ext: No edema or cyanosis Labs (see below) Images: CT Chest 09/30/16 Impression: 1. No focal infiltrate. Relatively low level of inspiration. 2. Tracheal airway is somewhat narrowed diffusely and indented by the esophagus posterior to it. Question tracheomalacia. No tracheal or esophageal mass lesion seen. 3. Cholelithiasis. 4. Somewhat dilated main pulmonary arteries may reflect pulmonary arterial hypertension. Renal U/S 09/30/16 Impression: Small cortical cyst upper pole left kidney otherwise unremarkable urinary tract sonography. Jackson catheter in the urinary bladder. Assessment/Plan 1. Acute Hypoxic Resp failure 2/2 Influenza. Had completed 4 days of Azithro. Pt presented > 3 days after initial symptoms. Nebs. Mucinex. Cont prednisone. Chest PT. 2. ED on CKD - Renal function improving. Pt has been on lasix and ACEi that have been held. Strict I/O. Avoid nephrotoxins. 3. Pancytopenia - Improved. Likely 2/2 viral infection; will continue to monitor 4. DM - SSI for now 5. Constipation - cont home regimen except for lactulose. 6. HLD on statin 7. Psychiatric d/o NOS - on Zyprexa 8. Baseline mental retardation with minimal verbal communication; I have been updating his labor conciliator on his status. 9. ?Tracheomalacia - Will need outpt pulmonary f/u. 10. Hypernatremia- improved; likely 2/2 dehydration, was on NS yesterday. Started on D5W 11. Hematuria with clots - ? trauma from jackson. Irrigated today by nurse with many clots. Urology consulted. Hb stable. ASA held. DVT prophy: SCDs VS,Fishbone, I+O VS, Fishbone, I+O Laboratory Tests 10/02/16 05:41 Calcium Level 9.0, Red Blood Count 2.90 L, Mean Corpuscular Volume 98.4 H, Mean Corpuscular Hemoglobin 30.4, Mean Corpuscular Hemoglobin Concent 30.9 L, Red Cell Distribution Width 12.7, Neutrophils (%) (Auto) 85.1 H, Lymphocytes (%) ( Auto) 8.9 L, Monocytes (%) (Auto) 4.0, Eosinophils (%) (Auto) 1.0, Basophils (% ) (Auto) 0.1, Neutrophils # (Auto) 3.7, Lymphocytes # (Auto) 0.4 L, Monocytes # (Auto) 0.2, Eosinophils # (Auto) 0.0, Basophils # (Auto) 0.0 Vital Signs Date Time Temp Pulse Resp B/P Pulse Ox O2 Delivery O2 Flow Rate FiO2 10/02/16 08:40 Nasal Cannula 2.0 10/02/16 08:36 104 132/70 10/02/16 05:15 97.0 20 94 I&O- Last 24 Hours up to 6 AM 10/02/16 05:59 Intake Total 1640 ml Output Total 1275 ml Balance 365 ml ANGELICA BREAUX MD Oct 02, 2016 13:54
[2016-10-02 14:00] VITALS: BP 144/76
--- NOTE | 2016-10-02 14:43 | REP ---
Congestion: COMPARISON: 09/30/2016 Chronic changes are seen throughout the lung lipscomb status quo. There is an air density beneath the right hemidiaphragm representing a change from the prior exam. There is cardiomegaly status quo accentuated by technique. The technique utilized in obtaining the radiograph has magnified the cardiac silhouette and accentuated the interstitial markings. There is no change in the osseous structures. IMPRESSION: 1. Abnormal air density beneath the right hemidiaphragm. This could either be secondary to a gas-filled bowel loop abutting the hemidiaphragm or free intraperitoneal air. This findings needs to be correlated clinically and if necessary, obtain CT. 2. Chronic changes seen in the lung lipscomb. Signed by Trung Bee DO 10/02/2016 03:17 P
[2016-10-02] MEDS: cefTRIAXone SOD 1 GM in D5W MINI-BAG PLUS 50 ML IV SCH (15:11)
[2016-10-02] MEDS: PERCOCET 5MG/325MG TAB PO PRN (15:14)
[2016-10-02] MEDS ORDERED: MAGNESIUM CITRATE 300 ML BTL PO ONE (15:15)
[2016-10-02] MEDS ORDERED: BISACODYL 10 MG SUPP PR ONE (16:00)
[2016-10-02 19:55] LABS: CALCIUM LEVEL 8.8 MG/DL (8.8-10.2); CREATININE FOR GFR 1.5 MG/DL (0.70-1.30); GLOMERULAR FILTRATION RATE 47.8 (>35); MAGNESIUM LEVEL 2.7 MG/DL (1.8-2.4); PHOSPHORUS LEVEL 2.7 MG/DL (2.5-4.9); POTASSIUM SERUM 5.2 MEQ/L (3.5-5.1)
[2016-10-02 21:45] LABS: CALCIUM LEVEL 8.9 MG/DL (8.8-10.2); CREATININE FOR GFR 1.53 MG/DL (0.70-1.30); GLOMERULAR FILTRATION RATE 46.7 (>35); POTASSIUM SERUM 4.8 MEQ/L (3.5-5.1)
[2016-10-02 22:00] VITALS: BP 140/72
[2016-10-02] MEDS: MIRALAX *UNIT DOSE* 17GM PACKET PO SCH (22:26)
[2016-10-03] MEDS: D5W 1,000 ML IV SCH (04:09)
[2016-10-03] MEDS: IPRATROPIUM 0.5MG/ALBUTEROL 2.5MG INH SOL UD 3ML (DUONEB)(J7620) NEB SCH ×6 (04:17→23:34)
[2016-10-03 06:00] VITALS: BP 150/71
[2016-10-03 06:37] LABS: EOS % 0.8 % (0.0-3.0); LARGE UNSTAINED CELL # 0.1 K/mm3 (0.0-0.4); LARGE UNSTAINED CELL % 0.9 % (0.0-4.0); LYMPH # 0.6 K/mm3 (1.5-4.5); LYMPH % 9.5 % (24.0-44.0); MEAN CORPUSCULAR HEMOGLOBIN 30.5 pg (27.0-33.0); MEAN CORPUSCULAR HGB CONC 31.7 g/dl (32.0-36.5); MEAN CORPUSCULAR VOLUME 96.2 fl (80.0-96.0); MONO # 0.3 K/mm3 (0.0-0.8); MONO % 5.3 % (0.0-5.0); NEUTROPHILS # 4.7 K/mm3 (1.8-7.7); NEUTROPHILS % 83.5 % (36.0-66.0); PLATELET COUNT, AUTOMATED 159 k/mm3 (150-450); RED CELL DISTRIBUTION WIDTH 12.7 % (11.5-14.5); WHITE BLOOD COUNT 5.6 K/mm3 (4.0-10.0)
[2016-10-03 06:52] LABS: CALCIUM LEVEL 8.6 MG/DL (8.8-10.2); CREATININE FOR GFR 1.33 MG/DL (0.70-1.30); GLOMERULAR FILTRATION RATE 54.9 (>35); MAGNESIUM LEVEL 2.7 MG/DL (1.8-2.4); POTASSIUM SERUM 4.7 MEQ/L (3.5-5.1)
--- NOTE | 2016-10-03 07:35 | REP ---
Rule out free intraperitoneal air. Previous plain film examination suggested the possibility of free air beneath the diaphragmatic surface of the right lung versus a large amount of gas within the bowel. Comparison examination 12/16/2014. The lung bases show chronic changes with suspected dependent and subsegmental atelectatic changes. There are no pleural or pericardial effusions. There is cholelithiasis. Limited evaluation of the liver and spleen show no gross abnormalities. Limited evaluation of the pancreas and adrenal glands show no gross abnormalities. There is unchanged bilateral perinephric stranding and there is an unchanged cyst arising from the interpolar region of the left kidney. Limited evaluation of the abdominal aorta and para-aortic regions show no gross abnormalities or significant changes from the prior exam. No free fluid or free air is seen in the abdomen. There is gaseous distention of the small bowel with gaseous distention of the stomach along with a content filled stomach. The small bowel and colonic gaseous distention has resulted in the plain film finding. CT PELVIS: Festus artifact is seen arising from the left hip prosthesis obscuring multiple images of the pelvis. There is a left inguinal hernia within which there is a loop of small bowel. There is gas and content within the sigmoid colon and rectum. No free fluid or free air is seen in the pelvis. There is a Santos balloon catheter in the urinary bladder resulting in urinary bladder air densities. Bone window technique through the examination shows chronic osseous changes. IMPRESSION: 1. There is no evidence of free intraperitoneal air. 2. There is an extensive ileus versus early or partial small bowel obstruction. 3. There is a left inguinal hernia as described above. 4. Chronic lung base changes. 5. Cholelithiasis. 6. Other findings as described above. Signed by Trung Bee DO 10/03/2016 12:05 P
[2016-10-03] MEDS: HumaLOG INSULIN (NovoLOG) PER UNIT SC SCH ×4 (08:42→21:00)
[2016-10-03] MEDS: guaiFENesin ER 600 MG TAB PO SCH ×2 (08:42→21:38)
[2016-10-03] MEDS: predniSONE 10 MG TAB PO SCH (08:43)
[2016-10-03] MEDS: SIMVASTATIN 20 MG TAB PO SCH (08:43)
[2016-10-03] MEDS: FIBER-CON 625 MG TAB PO SCH ×2 (08:43→21:37)
[2016-10-03] MEDS: amLODIPine 5 MG TAB PO SCH (08:43)
[2016-10-03] MEDS: TAMSULOSIN 0.4 MG CAP PO SCH (08:43)
[2016-10-03] MEDS: OLANZapine 5 MG TAB PO SCH (08:43)
[2016-10-03] MEDS: FERROUS GLUCONATE 324 MG TAB PO SCH (08:43)
[2016-10-03] MEDS: DOCUSATE SODIUM 100 MG CAP PO SCH ×2 (08:43→21:38)
[2016-10-03] MEDS: MIRALAX *UNIT DOSE* 17GM PACKET PO SCH ×2 (08:44→21:37)
[2016-10-03] MEDS: FINASTERIDE 5 MG TAB PO SCH (08:44)
[2016-10-03] MEDS: DORZOLAMIDE 2% OPHTH SOLN 10 ML BTL OD SCH (08:44)
[2016-10-03] MEDS: PILOCARPINE 1% OPHTH SOLN 15 ML OD SCH (08:44)
[2016-10-03] MEDS: BRIMONIDINE 0.15% OPHTH SOLN 5 ML OD SCH (08:44)
[2016-10-03] MEDS: TIMOLOL MALEATE 0.5% OPHTH SOLN 5 ML OD SCH (08:44)
[2016-10-03] MEDS: NYSTATIN 100,000 UNITS/GM TOPICAL PWD 15 GM TOP SCH ×2 (08:45→21:38)
--- NOTE | 2016-10-03 13:49 | IPNPDOC ---
Text Note Date of Service The patient was seen on 10/03/16. NOTE Subjective: Pt states he feels well. Dyspnea is improving. Hematuria resolved. Objective: Vitals: (see below) General: No acute distress, laying comfortably in bed. HEENT: Moist mucous membranes. Neck: No JVD or lymphadenopathy Cardiac: RRR, No murmurs Pulm: B/l ronchi and wheezing, improved from yesterday. Fine crackles b/l bases. No stridor. Abd: NT/ND + BS. Jackson with no hematuria. Ext: No edema or cyanosis Labs (see below) Images: CT Chest 09/30/16 Impression: 1. No focal infiltrate. Relatively low level of inspiration. 2. Tracheal airway is somewhat narrowed diffusely and indented by the esophagus posterior to it. Question tracheomalacia. No tracheal or esophageal mass lesion seen. 3. Cholelithiasis. 4. Somewhat dilated main pulmonary arteries may reflect pulmonary arterial hypertension. Renal U/S 09/30/16 Impression: Small cortical cyst upper pole left kidney otherwise unremarkable urinary tract sonography. Jackson catheter in the urinary bladder. Assessment/Plan 1. Acute Hypoxic Resp failure 2/2 Influenza. Had completed 4 days of Azithro. Pt presented > 3 days after initial symptoms. Nebs. Mucinex. Cont prednisone. Chest PT. 2. ED on CKD - Renal function improving. Pt has been on lasix and ACEi that have been held. Strict I/O. Avoid nephrotoxins. 3. Pancytopenia - Improved. Likely 2/2 viral infection; will continue to monitor 4. DM - SSI for now 5. Constipation - cont home regimen except for lactulose. 6. HLD on statin 7. Psychiatric d/o NOS - on Zyprexa 8. Baseline mental retardation with minimal verbal communication; I have been updating his support associate on his status. 9. ?Tracheomalacia - Will need outpt pulmonary f/u. 10. Hypernatremia- improved; likely 2/2 dehydration. s/p D5W 11. Hematuria with clots - ? trauma from jackson. Improved. Urology consulted. Hb stable. ASA held. DVT prophy: SCDs VS,Fishbone, I+O VS, Fishbone, I+O Laboratory Tests 10/02/16 19:09 Calcium Level 8.8 10/02/16 21:15 Calcium Level 8.9 10/03/16 06:02 Calcium Level 8.6 L, Red Blood Count 2.81 L, Mean Corpuscular Volume 96.2 H, Mean Corpuscular Hemoglobin 30.5, Mean Corpuscular Hemoglobin Concent 31.7 L, Red Cell Distribution Width 12.7, Neutrophils (%) (Auto) 83.5 H, Lymphocytes (% ) (Auto) 9.5 L, Monocytes (%) (Auto) 5.3 H, Eosinophils (%) (Auto) 0.8, Basophils (%) (Auto) 0.0, Neutrophils # (Auto) 4.7, Lymphocytes # (Auto) 0.6 L, Monocytes # (Auto) 0.3, Eosinophils # (Auto) 0.0, Basophils # (Auto) 0.0 Vital Signs Date Time Temp Pulse Resp B/P Pulse Ox O2 Delivery O2 Flow Rate FiO2 10/03/16 09:00 Nasal Cannula 2.0 10/03/16 08:43 84 150/71 10/03/16 06:00 98.9 20 94 I&O- Last 24 Hours up to 6 AM 10/03/16 06:00 Intake Total 2740 ml Output Total 3655 ml Balance -915 ml ANGELICA BREAUX MD Oct 03, 2016 13:49
[2016-10-03 14:00] VITALS: BP 151/69
[2016-10-03] MEDS: cefTRIAXone SOD 1 GM in D5W MINI-BAG PLUS 50 ML IV SCH (14:46)
--- NOTE | 2016-10-03 16:20 | CR ---
DATE OF CONSULTATION: 10/02/2016 REASON FOR CONSULTATION: Gross hematuria and a history of BPH. HISTORY OF PRESENT ILLNESS: The patient is an 80-year-old gentleman with a history of mental retardation and BPH status post a remote transurethral resection of the prostate (TURP) who comes in with flu-like symptoms and is positive for influenza B and a small bowel obstruction versus ileus. His creatinine was higher than his baseline of 1.5 at 2.68 when he was admitted so a bladder scan was done and he was seen to have 600 mL in his bladder, so a Santos catheter was placed. The urine was clear his first day of admission and then yesterday he was found to have blood on his hands and began having gross hematuria most likely secondary to pulling on the Santos catheter. A urology consultation was called since they did try to hand irrigate the two-way Santos catheter and there was quite a lot of blood. PAST MEDICAL HISTORY: BPH on Flomax and finasteride, chronic kidney disease with baseline creatinine of 1.5, COPD, type 2 diabetes, mental retardation, glaucoma causing partial blindness, high blood pressure, hyperlipidemia and psychiatric issues. PAST SURGICAL HISTORY: Remote TURP, a hip fracture, cataracts, appendectomy, and hemorrhoids. ALLERGIES: No known drug allergies. FAMILY HISTORY: Unknown. SOCIAL HISTORY: The patient resides with his caregiver Cindi Murphy, whose phone number is [phone]. Cindi Murphy usually makes the patient's health care decisions. He has a remote history of smoking and he does not drink alcohol. REVIEW OF SYSTEMS: The patient is unable to answer questions about a full review of systems secondary to his mental retardation and decreased IQ. He is also unable to answer questions about his BPH symptoms prior to admission. I asked him if he feels as though he empties normally and all the usual questions but he is really unable to give a history. PHYSICAL EXAMINATION: This is a well-developed, well-nourished gentleman lying in a hospital bed, who is alert but really unable to say where he is or what he is doing here since he just says "yeah, yeah, yeah" to every question asked. His vital signs show that he is afebrile at 97 with a T-max of 97.7. His respiratory rate is 20. His pulse is 104 and his blood pressure is 132/70. His head is normocephalic, atraumatic. His eyes have a glassy look, although his extraocular movements appear intact. His right pupil is large and irregularly shaped. He has moist mucous membranes. His trachea is midline and he has no significant supraclavicular or cervical adenopathy. 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 His heart has a regular rate and rhythm and there is no rubs, gallops, or murmurs appreciated. His lungs show diffuse rhonchi and upper respiratory congestion. He has no CVA tenderness. His abdomen is quite distended but without any rebound or guarding. There are hyperactive bowel sounds. A Santos catheter is in place draining dark red urine. His extremities show no cyanosis, clubbing or edema. Neurologically his speech is garbled when he does say anything other than the "yeah." LABORATORY DATA: His white blood count is 4.3. Hemoglobin and hematocrit 8.8/28.5, BUN 47 and creatinine is now 1.68, it was 2.[address] scan of the abdomen and pelvis was done and there is no report yet, but it shows extensive ileus versus partial small bowel obstruction with some bilateral perinephric stranding but no hydroureteronephrosis and no stones seen. There were bilaterally atrophic kidneys. PROCEDURE: At this point I hand irrigated a three-way Santos catheter which I asked them to place which was a 22-[place]. There was multiple bladder clotting and I spent quite a lot of time irrigating until the patient was clear. I then placed him on continuous bladder irrigation. IMPRESSION: 1. Santos catheter trauma. 2. History of BPH with a remote TURP with incomplete bladder emptying found to have a PVR of 600 mL on admission. 3. Acute renal failure on top of chronic kidney disease stage III and when he was admitted to the ER his creatinine was 2.68 but is now down to 1.61. 4. Influenza and partial small bowel obstruction versus an extensive ileus. PLAN: 1. Recommend continuous bladder irrigation and when the urine is clear and the patient is ambulating and his small bowel obstruction has resolved, then a voiding trial should be attempted. 2. Continue Flomax and finasteride for now. 3. The patient will need urologic followup in the future. LUISD
--- NOTE | 2016-10-03 17:41 | ECGEPIP ---
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 LAST TRACING ON 01/30/2015 AT 12:01:26 Electronically Signed On 10-03-2016 17:40:36 EDT by Andrei Dennison
[2016-10-03] MEDS: MOM 30ML SUSPENSION UDC PO PRN (17:47)
--- NOTE | 2016-10-03 20:08 | IPN ---
DATE: 10/03/2016 Mr. Orta has an NG tube in now and his abdomen seems less distended. He has been on continuous bladder irrigation (CBI) overnight and he has had no further blood clots and just one episode where the urine was light pink but otherwise has been fairly clear with irrigation. PHYSICAL EXAMINATION: He is afebrile at 98.9. His blood pressure is 150/71 and his pulse is 84, his pulse oximetry is 94% on 2 liters nasal cannula. His abdomen is less distended and he has a Santos catheter in place draining clear yellow urine. LABORATORY DATA: His hemoglobin and hematocrit is low at 8.6 over 27.1 and his hemoglobin was 9.7 on admission. His BUN is 42 and his creatinine is 1.33 down from 1.61 on admission with a baseline from January 2015 of 1.0. IMPRESSION: 1. Gross hematuria from Santos catheter trauma since the patient pulled on his catheter. Now with clear yellow urine after hand irrigation and now continuous bladder irrigation. 2. Patient admitted with influenza B also with a significant ileus versus small bowel obstruction. 3. Longstanding history of mental retardation. PLAN: 1. Recommend decreasing continuous bladder irrigation (CBI) and trying to turn it off and then doing a voiding trial once the patient is moving his bowels and is ambulating. 2. Patient to followup in the office about a month after discharge and if there is any further gross hematuria or microscopic hematuria then cystoscopy should probably be done and he should also be assessed for further BPH since he did have a history of a TURP performed by Dr. Yi many years ago.
[2016-10-03 22:00] VITALS: BP 152/73
[2016-10-04] MEDS: IPRATROPIUM 0.5MG/ALBUTEROL 2.5MG INH SOL UD 3ML (DUONEB)(J7620) NEB SCH ×5 (03:28→20:46)
[2016-10-04 06:00] VITALS: BP 156/74
[2016-10-04 07:08] LABS: EOS % 0.6 % (0.0-3.0); LARGE UNSTAINED CELL # 0.1 K/mm3 (0.0-0.4); LARGE UNSTAINED CELL % 1.3 % (0.0-4.0); LYMPH # 0.8 K/mm3 (1.5-4.5); LYMPH % 16.9 % (24.0-44.0); MEAN CORPUSCULAR HEMOGLOBIN 29.8 pg (27.0-33.0); MEAN CORPUSCULAR VOLUME 93.1 fl (80.0-96.0); MONO # 0.3 K/mm3 (0.0-0.8); MONO % 6.7 % (0.0-5.0); NEUTROPHILS # 3.7 K/mm3 (1.8-7.7); NEUTROPHILS % 74.4 % (36.0-66.0); PLATELET COUNT, AUTOMATED 153 k/mm3 (150-450); RED CELL DISTRIBUTION WIDTH 12.4 % (11.5-14.5); WHITE BLOOD COUNT 4.9 K/mm3 (4.0-10.0)
[2016-10-04 07:21] LABS: ANION GAP 5 MEQ/L (8-16); BLOOD UREA NITROGEN 35 MG/DL (7-18); CALCIUM LEVEL 9.3 MG/DL (8.8-10.2); CARBON DIOXIDE LEVEL 34 MEQ/L (21-32); CHLORIDE LEVEL 110 MEQ/L (98-107); CREATININE FOR GFR 1.16 MG/DL (0.70-1.30); GLOMERULAR FILTRATION RATE > 60.0 (>35); GLUCOSE, FASTING 127 MG/DL (83-110); MAGNESIUM LEVEL 2.8 MG/DL (1.8-2.4); POTASSIUM SERUM 4.1 MEQ/L (3.5-5.1); SODIUM LEVEL 149 MEQ/L (136-145)
[2016-10-04] MEDS: HumaLOG INSULIN (NovoLOG) PER UNIT SC SCH ×4 (07:29→21:00)
[2016-10-04] MEDS: MOM 30ML SUSPENSION UDC PO PRN (09:02)
[2016-10-04] MEDS: FIBER-CON 625 MG TAB PO SCH ×2 (09:03→21:11)
[2016-10-04] MEDS: predniSONE 10 MG TAB PO SCH (09:04)
[2016-10-04] MEDS: guaiFENesin ER 600 MG TAB PO SCH ×2 (09:04→21:11)
[2016-10-04] MEDS: FINASTERIDE 5 MG TAB PO SCH (09:04)
[2016-10-04] MEDS: FERROUS GLUCONATE 324 MG TAB PO SCH (09:04)
[2016-10-04] MEDS: amLODIPine 5 MG TAB PO SCH (09:04)
[2016-10-04] MEDS: TAMSULOSIN 0.4 MG CAP PO SCH (09:04)
[2016-10-04] MEDS: SIMVASTATIN 20 MG TAB PO SCH (09:04)
[2016-10-04] MEDS: OLANZapine 5 MG TAB PO SCH (09:04)
[2016-10-04] MEDS: DOCUSATE SODIUM 100 MG CAP PO SCH ×2 (09:05→21:11)
[2016-10-04] MEDS: MIRALAX *UNIT DOSE* 17GM PACKET PO SCH ×2 (09:05→21:11)
[2016-10-04] MEDS: D5W 1,000 ML IV SCH (09:06)
[2016-10-04] MEDS: BRIMONIDINE 0.15% OPHTH SOLN 5 ML OD SCH (09:06)
[2016-10-04] MEDS: TIMOLOL MALEATE 0.5% OPHTH SOLN 5 ML OD SCH (09:06)
[2016-10-04] MEDS: PILOCARPINE 1% OPHTH SOLN 15 ML OD SCH (09:06)
[2016-10-04] MEDS: DORZOLAMIDE 2% OPHTH SOLN 10 ML BTL OD SCH (09:06)
[2016-10-04] MEDS: NYSTATIN 100,000 UNITS/GM TOPICAL PWD 15 GM TOP SCH ×2 (09:07→21:12)
--- NOTE | 2016-10-04 11:00 | IPNPDOC ---
Date Seen The patient was seen on 10/04/16. Progress Note Hospitalist Progress Note Subjective: This difficult to obtain a straight answer from the patient. He answers yes to both the affirmative version of a question and the negative version of a question. Per nursing, his only bowel movements have been a little bit of mucus and no true stool. Objective: Physical Exam: Vitals: Vital Sign - Last 24 Hours 10/03/16 10/03/16 10/03/16 10/04/16 14:00 22:00 22:58 06:00 Temp 97.8 98.4 97.6 Pulse 104 99 94 Resp 24 17 15 B/P 151/69 152/73 156/74 Pulse Ox 93 92 96 O2 Delivery Nasal Cannula High Flow Cannula Nasal Cannula High Flow Cannula O2 Flow Rate 2.0 2.0 2.0 2.0 10/04/16 09:04 Pulse 94 B/P 156/74 General: Awake, alert, no acute distress HEENT: Atraumatic, normocephalic CV: Regular rate and rhythm, no murmurs rubs or gallops Lungs: Clear to auscultation bilaterally Abd: Soft, decreased bowel sounds, patient seems to wince when I palpate his left lower quadrant Extremities: No edema Neuro: Speech is very garbled, appears to be at the same baseline which I saw him in the ER several days ago Labs and Imaging: Laboratory Tests 10/04/16 06:27 Calcium Level 9.3, Red Blood Count 2.83 L, Mean Corpuscular Volume 93.1, Mean Corpuscular Hemoglobin 29.8, Mean Corpuscular Hemoglobin Concent 32.0, Red Cell Distribution Width 12.4, Neutrophils (%) (Auto) 74.4 H, Lymphocytes (%) (Auto) 16.9 L, Monocytes (%) (Auto) 6.7 H, Eosinophils (%) (Auto) 0.6, Basophils (%) ( Auto) 0.0, Neutrophils # (Auto) 3.7, Lymphocytes # (Auto) 0.8 L, Monocytes # ( Auto) 0.3, Eosinophils # (Auto) 0.0, Basophils # (Auto) 0.0 Assessment and Plan: 80-year-old male with mental retardation, history of BPH status post TURP, history of anemia with prior GI bleed, chronic constipation with normal colonoscopy, diabetes mellitus type 2, blindness secondary to glaucoma, hypertension, hyperlipidemia, chronic kidney disease stage III, COPD, osteoporosis with prior hip fracture, psychiatric disorder NOS who is admitted with influenza, acute on chronic kidney disease, and pancytopenia. Since being here, he has also developed an ileus. 1. Influenza: Patient's symptoms had already been present for several days by the time he was diagnosed. He is not on Tamiflu, but we will continue symptomatic treatment with Mucinex, nebulizers, and prednisone. 2. Acute on chronic kidney disease stage III: Patient's baseline creatinine appears to be in the mid ones. His creatinine has now improved from 2.68 upon admission to 1.16. We are currently holding his home Lasix and TIMOTHY inhibitor. This appears to be secondary to urinary retention. Continue Flomax and Proscar. 3. Pancytopenia: This is improving, and his white count and platelets are now within normal limits. I suspect this is secondary to influenza. 4. Hematuria with clots: This is thought to be secondary to trauma from his Santos. This is currently resolved, and urology is following. Dr. Mckenzie recommends that the Santos stay in place until the patient is ambulating and having bowel movements. Aspirin is currently on hold, and hemoglobin is stable. He will need outpatient follow-up with urology 5. Ileus: The patient has an NG in place. He is still not having any bowel movements. We will continue nothing by mouth with IV fluids. The patient is already on Colace, MiraLAX twice a day, milk of magnesia. She is still not stooled tomorrow, we may consider an enema. 6. Hypernatremia: Patient's sodium had gotten up to 150 and improved with initiation of D5W. Suspect that this is secondary to dehydration. Unfortunately , the D5W was stopped yesterday, and the patient is still nothing by mouth from his ileus, and subsequently, his sodium has returned to 149. We will reinitiate D5W, and checks frequent sodiums. 7. Diabetes mellitus type 2: Sliding scale insulin while in house. He does not use any medications at home. A1c is 6.7. 8. Blindness secondary to glaucoma: Continue home eyedrops 9. Hypertension: Continue home Norvasc. Currently holding Lasix and TIMOTHY inhibitor. 10. Hyperlipidemia: Continue home statin. 11. Psychiatric disorder NOS: Continue home Zyprexa. 12. 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 DVT prophylaxis: SCDs VS, I&O, 24H, Fishbone Vital Signs/I&O Vital Signs Date Time Temp Pulse Resp B/P Pulse Ox O2 Delivery O2 Flow Rate FiO2 10/04/16 09:04 94 156/74 10/04/16 06:00 97.6 15 96 High Flow Cannula 2.0 I&O- Last 24 Hours up to 6 AM 10/04/16 05:59 Intake Total 1150 ml Output Total 3925 ml Balance -2775 ml Laboratory Data 24H LABS Laboratory Tests 2 10/03/16 11:50: Bedside Glucose (Misc Panel) 169H 10/03/16 16:36: Bedside Glucose (Misc Panel) 191H 10/03/16 21:00: Bedside Glucose (Misc Panel) 147H 10/04/16 06:27: Anion Gap 5L, White Blood Count 4.9, Red Blood Count 2.83L, Hemoglobin 8.4L, Hematocrit 26.4L, Mean Corpuscular Volume 93.1, Mean Corpuscular Hemoglobin 29.8 , Mean Corpuscular Hemoglobin Concent 32.0, Red Cell Distribution Width 12.4, Platelet Count 153, Neutrophils (%) (Auto) 74.4H, Lymphocytes (%) (Auto) 16.9L, Monocytes (%) (Auto) 6.7H, Eosinophils (%) (Auto) 0.6, Basophils (%) (Auto) 0.0 , Neutrophils # (Auto) 3.7, Lymphocytes # (Auto) 0.8L, Monocytes # (Auto) 0.3, Eosinophils # (Auto) 0.0, Basophils # (Auto) 0.0, C-Reactive Protein, Quantitative 1.21H, Blood Urea Nitrogen 35H, Creatinine 1.16, Sodium Level 149H , Potassium Level 4.1, Chloride Level 110H, Carbon Dioxide Level 34H, Calcium Level 9.3, Estimated Mean Plasma Glucose 146H, Glomerular Filtration Rate > 60.0 , Hemoglobin A1c 6.7H, Large Unclassified Cells # 0.1, Large Unclassified Cells % 1.3, Magnesium Level 2.8H CBC/BMP Laboratory Tests 10/04/16 06:27 Calcium Level 9.3, Red Blood Count 2.83 L, Mean Corpuscular Volume 93.1, Mean Corpuscular Hemoglobin 29.8, Mean Corpuscular Hemoglobin Concent 32.0, Red Cell Distribution Width 12.4, Neutrophils (%) (Auto) 74.4 H, Lymphocytes (%) (Auto) 16.9 L, Monocytes (%) (Auto) 6.7 H, Eosinophils (%) (Auto) 0.6, Basophils (%) ( Auto) 0.0, Neutrophils # (Auto) 3.7, Lymphocytes # (Auto) 0.8 L, Monocytes # ( Auto) 0.3, Eosinophils # (Auto) 0.0, Basophils # (Auto) 0.0 Microbiology Microbiology 09/29/16 Gastrointestinal Tract Panel (PCR) - Final, Complete 09/28/16 Respiratory Virus Panel (PCR) ([facility]) - Final, Complete Influenza B 09/28/16 Influenza Virus Type A Antigen - Final, Complete 09/28/16 Influenza Virus Type B Antigen - Final, Complete MIQUEL KENNY Oct 04, 2016 11:00
--- NOTE | 2016-10-04 12:28 | IPN ---
DATE: 10/04/2016 The patient still has an NG tube in and his belly is less distended but still distended. He has remained clear off the CBI overnight. He is afebrile. His blood pressure is 156/74 and his pulse is 94. He is still on 2 liters of nasal cannula. He had no CVA tenderness and his abdomen is still distended. The Santos catheter is draining clear yellow urine and he has no cyanosis, clubbing or edema. His white blood count today is 4.9, hemoglobin and hematocrit 8.4 over 26.4 and platelets are 153. His BUN of 35 and his creatinine is 1.16. IMPRESSION: History of gross hematuria from Santos trauma during a hospital stay a for influenza B with acute on chronic kidney disease. Also with an ileus found to be in urinary retention. PLAN: Discontinue the continuous bladder irrigation now completely since his urine has been completely clear and there have been no further clots to recommend a voiding trial when the patient no longer has an ileus and is moving his bowels well and is able to be up and ambulating. The patient will follow up in the clinic on an outpatient basis and it will be determined if anything further needs to be done for his history of gross hematuria but most likely this was just secondary to Santos trauma.
[2016-10-04 14:00] VITALS: BP 155/79
[2016-10-04] MEDS: cefTRIAXone SOD 1 GM in D5W MINI-BAG PLUS 50 ML IV SCH (15:28)
[2016-10-04 22:00] VITALS: BP 140/82
[2016-10-05] MEDS: IPRATROPIUM 0.5MG/ALBUTEROL 2.5MG INH SOL UD 3ML (DUONEB)(J7620) NEB SCH ×7 (00:19→23:15)
[2016-10-05] MEDS: D5W 1,000 ML IV SCH ×2 (02:56→15:17)
[2016-10-05 06:00] VITALS: BP 145/78
[2016-10-05 07:13] LABS: BASO % 0.1 % (0.0-1.0); EOS # 0.1 K/mm3 (0.0-0.50); LARGE UNSTAINED CELL # 0.1 K/mm3 (0.0-0.4); LARGE UNSTAINED CELL % 1.5 % (0.0-4.0); LYMPH # 0.8 K/mm3 (1.5-4.5); LYMPH % 15.1 % (24.0-44.0); MEAN CORPUSCULAR HEMOGLOBIN 29.9 pg (27.0-33.0); MEAN CORPUSCULAR HGB CONC 32.2 g/dl (32.0-36.5); MEAN CORPUSCULAR VOLUME 93.1 fl (80.0-96.0); MONO # 0.3 K/mm3 (0.0-0.8); MONO % 5.6 % (0.0-5.0); NEUTROPHILS # 4.3 K/mm3 (1.8-7.7); NEUTROPHILS % 76.7 % (36.0-66.0); PLATELET COUNT, AUTOMATED 176 k/mm3 (150-450); RED CELL DISTRIBUTION WIDTH 12.3 % (11.5-14.5); WHITE BLOOD COUNT 5.6 K/mm3 (4.0-10.0)
[2016-10-05 07:25] LABS: CALCIUM LEVEL 9.2 MG/DL (8.8-10.2); CREATININE FOR GFR 1.27 MG/DL (0.70-1.30); GLOMERULAR FILTRATION RATE 57.9 (>35); MAGNESIUM LEVEL 2.8 MG/DL (1.8-2.4); POTASSIUM SERUM 4.1 MEQ/L (3.5-5.1)
[2016-10-05] MEDS: MIRALAX *UNIT DOSE* 17GM PACKET PO SCH ×2 (08:44→20:50)
[2016-10-05] MEDS: HumaLOG INSULIN (NovoLOG) PER UNIT SC SCH ×4 (08:44→20:39)
[2016-10-05] MEDS: MOM 30ML SUSPENSION UDC PO PRN (08:44)
[2016-10-05] MEDS: predniSONE 10 MG TAB PO SCH (08:45)
[2016-10-05] MEDS: TAMSULOSIN 0.4 MG CAP PO SCH (08:45)
[2016-10-05] MEDS: OLANZapine 5 MG TAB PO SCH (08:45)
[2016-10-05] MEDS: guaiFENesin ER 600 MG TAB PO SCH ×2 (08:45→20:50)
[2016-10-05] MEDS: FIBER-CON 625 MG TAB PO SCH ×2 (08:45→20:50)
[2016-10-05] MEDS: FERROUS GLUCONATE 324 MG TAB PO SCH (08:45)
[2016-10-05] MEDS: amLODIPine 5 MG TAB PO SCH (08:46)
[2016-10-05] MEDS: TIMOLOL MALEATE 0.5% OPHTH SOLN 5 ML OD SCH (08:46)
[2016-10-05] MEDS: SIMVASTATIN 20 MG TAB PO SCH (08:46)
[2016-10-05] MEDS: PILOCARPINE 1% OPHTH SOLN 15 ML OD SCH (08:46)
[2016-10-05] MEDS: DOCUSATE SODIUM 100 MG CAP PO SCH ×2 (08:46→20:53)
[2016-10-05] MEDS: DORZOLAMIDE 2% OPHTH SOLN 10 ML BTL OD SCH (08:46)
[2016-10-05] MEDS: FINASTERIDE 5 MG TAB PO SCH (08:46)
[2016-10-05] MEDS: BRIMONIDINE 0.15% OPHTH SOLN 5 ML OD SCH (08:46)
[2016-10-05] MEDS: NYSTATIN 100,000 UNITS/GM TOPICAL PWD 15 GM TOP SCH ×2 (08:47→20:51)
[2016-10-05] MEDS ORDERED: MAGNESIUM CITRATE 300 ML BTL PO ONE (10:00)
[2016-10-05] MEDS ORDERED: MAGNESIUM CITRATE 300 ML BTL PO PRN (12:00)
--- NOTE | 2016-10-05 12:27 | IPN ---
DATE: 10/05/2016 80-year-old gentleman seen at bedside still with a nasogastric (NG) tube, nothing by mouth, has not been eating much. He denies chest pain, nausea, vomiting currently; however, he still not passing flatus or passing stool. CT scan 10/02/2016 suggested ileus versus small bowel obstruction (SBO). OBJECTIVE: Temperature is 98.3, pulse 97, respiratory rate is 19, blood pressure (BP) 145/78, SpO2 is 91% on 2 liters. General: The patient appears to be in no acute distress, is alert, oriented. HEENT: Unremarkable. Lungs: Clear. Heart: Regular rate and rhythm. Abdomen is distended. Diminished bowel sounds but no significant tenderness palpable. Extremities: No edema. No calf tenderness. LABORATORY DATA: White count 5.6, hemoglobin is 9.2, up from 8.4 yesterday, platelets are 176,000. Sodium 146, potassium 4.1, chloride 102, bicarbonate 30, anion gap 6, BUN 30, creatinine 1.27, glucose 175, calcium 9.2, magnesium 2.8, CRP is 2.1. Respiratory panel positive for influenza B. ASSESSMENT/PLAN: 1. Influenza. Presented several days after symptomatology. Started his own Tamiflu but he is being treated with Mucinex, nebulizer, prednisone for underlying history of chronic obstructive pulmonary disease (COPD) and possible exacerbation. 2. Acute on chronic kidney disease, stage III. Creatinine appears to be trending to baseline. Currently holding Lasix and TIMOTHY inhibitor. 3. Urinary retention with Santos catheter in place. Appreciate Dr. Mckenzie's input. Continue on Flomax, Proscar. 4. Pancytopenia, improving. White count and platelets are within normal limits. 5. Hematuria with clots. Again, appreciate Dr. Mckenzie's input with placement of Santos. Continue to hold the aspirin. Continue to watch his hemoglobin and hematocrit, and he will need outpatient followup with neurology when he is discharged. 6. Ileus. He does continue with nothing by mouth, NG tube. Continue IV fluids. We did try some bowel prep yesterday. He still not moving well. Will try some magnesium citrate. Did request the patient to be seen by general surgery. 7. Hypernatremia. Does appear to be improving with D5W. Will continue to follow. 8. Diabetes, type 2. Continue with fingersticks and sliding scale coverage as needed. 9. Blindness secondary to glaucoma. Continue with eye drops. 10. Hypertension. Continue with Norvasc, Lasix. TIMOTHY inhibitors are on hold. 11. Hyperlipidemia. Continue statin therapy. 12. Psychiatric disorder, not otherwise specified. Continue with Zyprexa. 13. 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 Can followup with pulmonary outpatient. 14. Deep venous thrombosis (DVT) prophylaxis with sequential compressive devices (SCDs). DISPOSITION: Would appreciate further evaluation by general surgery today.
[2016-10-05 14:00] VITALS: BP 145/72
[2016-10-05] MEDS ORDERED: FLEET ENEMA PR ONE (14:30)
[2016-10-05] MEDS: cefTRIAXone SOD 1 GM in D5W MINI-BAG PLUS 50 ML IV SCH (15:17)
--- NOTE | 2016-10-05 15:24 | REP ---
ACUTE ABDOMINAL SERIES: 10/05/2016 COMPARISON: CT abdomen and pelvis 10/02/2016, portable chest 10/02/2016, 09/30/2016. CLINICAL HISTORY: Follow-up small bowel obstruction or ileus. AP SUPINE CHEST: There is a nasogastric tube coursing through the mediastinum into the left upper quadrant, tip in the lateral margin of the gastric fundus well past the GE junction. There is elevation of the right diaphragm as before. There is underlying interstitial fibrosis with superimposed patchy atelectasis or infiltrates, similar to that seen on chest CT 3 days ago. No definite layering effusion. There is a tortuous calcified aorta, unchanged. There is no vascular redistribution or edema. There are degenerative changes in the spine. ABDOMEN: Cross-table lateral and two supine views were provided. The cross-table lateral view has some respiratory motion blur. There are some mildly prominent gas-filled bowel loops but these are not as dilated as on the CT 3 days ago. Scattered stool in the right colon and proximal transverse colon with less gaseous distension of the colon and small bowel loops in the abdomen on both supine views. The cross-table lateral view shows no free air. There are degenerative changes in the spine and right hip with a left total hip arthroplasty. IMPRESSION: 1. Decrease distension of the colon and small bowel loops suggesting improving ileus or partial small-bowel obstruction with stool and gas in the right colon and proximal transverse colon. 2. There is no free air on the cross-table lateral view or mass effect on the bowel loops. 3. Status post left total hip arthroplasty and an NG tube is in place in the in the stomach, its tip along the lateral wall of the gastric fundus, well beyond the GE junction. 4. The AP supine chest shows elevated diaphragm. The basilar fibrotic changes with superimposed atelectasis or infiltrate. No layering effusion. No piotr edema. Some cardiomegaly with left ventricular configuration. Signed by Mata Roldan MD 10/05/2016 06:44 P
[2016-10-05 22:00] VITALS: BP 130/66
[2016-10-06] MEDS: IPRATROPIUM 0.5MG/ALBUTEROL 2.5MG INH SOL UD 3ML (DUONEB)(J7620) NEB SCH ×6 (03:33→23:23)
[2016-10-06 06:00] VITALS: BP 134/71
[2016-10-06] MEDS: D5W 1,000 ML IV SCH ×2 (06:29→14:33)
[2016-10-06 06:53] LABS: BASO % 0.1 % (0.0-1.0); EOS # 0.1 K/mm3 (0.0-0.50); LARGE UNSTAINED CELL # 0.1 K/mm3 (0.0-0.4); LARGE UNSTAINED CELL % 1.3 % (0.0-4.0); LYMPH # 0.8 K/mm3 (1.5-4.5); LYMPH % 14.8 % (24.0-44.0); MEAN CORPUSCULAR HGB CONC 32.5 g/dl (32.0-36.5); MEAN CORPUSCULAR VOLUME 92.2 fl (80.0-96.0); MONO # 0.3 K/mm3 (0.0-0.8); MONO % 4.8 % (0.0-5.0); NEUTROPHILS # 4.3 K/mm3 (1.8-7.7); NEUTROPHILS % 76.9 % (36.0-66.0); PLATELET COUNT, AUTOMATED 196 k/mm3 (150-450); RED CELL DISTRIBUTION WIDTH 12.5 % (11.5-14.5); WHITE BLOOD COUNT 5.6 K/mm3 (4.0-10.0)
[2016-10-06 07:05] LABS: CALCIUM LEVEL 8.9 MG/DL (8.8-10.2); CREATININE FOR GFR 1.43 MG/DL (0.70-1.30); GLOMERULAR FILTRATION RATE 50.5 (>35); MAGNESIUM LEVEL 3.1 MG/DL (1.8-2.4); POTASSIUM SERUM 3.8 MEQ/L (3.5-5.1)
[2016-10-06] MEDS: FERROUS GLUCONATE 324 MG TAB PO SCH (09:00)
[2016-10-06] MEDS: NYSTATIN 100,000 UNITS/GM TOPICAL PWD 15 GM TOP SCH ×2 (09:00→21:03)
[2016-10-06] MEDS: DOCUSATE SODIUM 100 MG CAP PO SCH ×2 (09:45→21:02)
[2016-10-06] MEDS: OLANZapine 5 MG TAB PO SCH (09:45)
[2016-10-06] MEDS: predniSONE 10 MG TAB PO SCH (09:45)
[2016-10-06] MEDS: guaiFENesin ER 600 MG TAB PO SCH ×2 (09:45→21:02)
[2016-10-06] MEDS: HumaLOG INSULIN (NovoLOG) PER UNIT SC SCH ×4 (09:45→20:51)
[2016-10-06] MEDS: FIBER-CON 625 MG TAB PO SCH ×2 (09:45→21:02)
[2016-10-06] MEDS: TAMSULOSIN 0.4 MG CAP PO SCH (09:45)
[2016-10-06] MEDS: FINASTERIDE 5 MG TAB PO SCH (09:45)
[2016-10-06] MEDS: SIMVASTATIN 20 MG TAB PO SCH (09:45)
[2016-10-06] MEDS: MIRALAX *UNIT DOSE* 17GM PACKET PO SCH ×2 (09:46→21:02)
[2016-10-06] MEDS: amLODIPine 5 MG TAB PO SCH (09:46)
[2016-10-06] MEDS: BRIMONIDINE 0.15% OPHTH SOLN 5 ML OD SCH (09:47)
[2016-10-06] MEDS: PILOCARPINE 1% OPHTH SOLN 15 ML OD SCH (09:47)
[2016-10-06] MEDS: TIMOLOL MALEATE 0.5% OPHTH SOLN 5 ML OD SCH (09:47)
[2016-10-06] MEDS: DORZOLAMIDE 2% OPHTH SOLN 10 ML BTL OD SCH (09:47)
--- NOTE | 2016-10-06 13:17 | IPN ---
DATE OF SERVICE: 10/06/2016 An 80-year-old gentleman seen at bedside. No overnight issues. However, yesterday evening, the nurse had noticed after he attempted to have a bowel movement after a Fleet enema that he did strain quite a bit, and the nurse had described what sounds like a rectal prolapse, which has since pretty much resolved. He denies any overnight issues. No chest pain. No nausea or vomiting. Denies any abdominal pain. OBJECTIVE: Temperature is 98.7, pulse 98, respiratory rate 20, blood pressure (BP) 134/71, SpO2 91% on 2 liters. General: The patient appears to be in no acute distress. Is alert and oriented. HEENT: Unremarkable. Lungs: Clear. Heart: Regular rate and rhythm. Abdomen is distended. Positive bowel sounds. They do appear to be slightly hyperactive. No masses. No rebound. Nasogastric (NG) tube is currently in place with currently on lower intermittent suction. Extremities: No edema. No calf tenderness. LABORATORY DATA: White count is 5.6, hemoglobin 9.4, platelets 196,000. Sodium 145, potassium 3.8, chloride 98, bicarbonate 38, anion gap 9, BUN 36, creatinine 1.43 slightly worse than yesterday at 1.27, glucose 174, magnesium 3.1, CRP is 1.97 down from 2.1. Again, respiratory virus panel was positive for influenza B. Gastrointestinal (GI) tract panel was negative. ASSESSMENT AND PLAN: 1. Influenza. Continue current treatment. Will finish out Tamiflu. Continue Mucinex, nebulizers, prednisone for underlying chronic obstructive pulmonary disease (COPD) and possible exacerbation. 2. Acute on chronic kidney disease, history of chronic kidney disease stage III. Currently, Lasix and angiotensin-converting enzyme (TIMOTHY) inhibitor are on hold. However, the patient has remained nothing by mouth and receiving some intravenous (IV) fluids. Will increase his D5W to 100 mL an hour today and avoid nephrotoxic drugs. Reevaluate renal profile tomorrow. 3. Urinary retention with Santos catheter in place. Appreciate Dr. Mckenzie's input as dictated previously. He continues on Flomax, Proscar. Likely, he will be discharged with the Santos catheter and can followup as an outpatient. 4. Pancytopenia. Appears to be improving to baseline. 5. Hematuria with clot, status post cystoscopy and treatment by Dr. Mckenzie. Continue to hold the aspirin. Watch his hemoglobin and hematocrit, which appears to be stable, and followup with urology as an outpatient after discharge. 6. Ileus versus small bowel obstruction. NG tube remains in place. Appreciate Dr. Ross's input and will see what he thinks about the possible rectal prolapse. 7. Hypernatremia, resolved. 8. Diabetes. Continue with fingersticks and sliding scale coverage 9. Blindness secondary to glaucoma. Continue with eyedrops. 10. Hypertension. Continue with Norvasc. His Lasix and TIMOTHY inhibitors are currently on hold. 11. Hyperlipidemia. Continue statin therapy. 12. Psychiatric disorder, not otherwise specified. No audiovisual hallucinations. No suicidal ideation. Continue with Zyprexa. 13. 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 Can followup outpatient with pulmonary. 14. Deep venous thrombosis (DVT) prophylaxis. Continue with thromboembolic deterrents (TEDs), sequential compression devices (SCDs). DISPOSITION: Appreciate input from general surgery.
[2016-10-06] MEDS: LACTULOSE 20 GM/30 ML SYRUP UD PO SCH (13:47)
[2016-10-06 14:00] VITALS: BP 122/64
[2016-10-06] MEDS: cefTRIAXone SOD 1 GM in D5W MINI-BAG PLUS 50 ML IV SCH (14:33)
[2016-10-06 22:00] VITALS: BP 139/67
[2016-10-07] MEDS: IPRATROPIUM 0.5MG/ALBUTEROL 2.5MG INH SOL UD 3ML (DUONEB)(J7620) NEB SCH ×6 (03:31→23:36)
[2016-10-07] MEDS: D5W 1,000 ML IV SCH ×3 (05:41→22:24)
[2016-10-07 06:00] VITALS: BP 141/78
[2016-10-07 06:14] LABS: BASO % 0.1 % (0.0-1.0); EOS # 0.1 K/mm3 (0.0-0.50); EOS % 1.1 % (0.0-3.0); LARGE UNSTAINED CELL # 0.1 K/mm3 (0.0-0.4); LARGE UNSTAINED CELL % 1.2 % (0.0-4.0); LYMPH # 0.8 K/mm3 (1.5-4.5); LYMPH % 11.4 % (24.0-44.0); MEAN CORPUSCULAR HEMOGLOBIN 30.1 pg (27.0-33.0); MEAN CORPUSCULAR HGB CONC 32.3 g/dl (32.0-36.5); MEAN CORPUSCULAR VOLUME 93.1 fl (80.0-96.0); MONO # 0.3 K/mm3 (0.0-0.8); MONO % 4.7 % (0.0-5.0); NEUTROPHILS # 5.2 K/mm3 (1.8-7.7); NEUTROPHILS % 81.5 % (36.0-66.0); PLATELET COUNT, AUTOMATED 213 k/mm3 (150-450); RED CELL DISTRIBUTION WIDTH 12.5 % (11.5-14.5); WHITE BLOOD COUNT 6.4 K/mm3 (4.0-10.0)
[2016-10-07 06:31] LABS: CALCIUM LEVEL 8.4 MG/DL (8.8-10.2); CREATININE FOR GFR 1.83 MG/DL (0.70-1.30); MAGNESIUM LEVEL 3.1 MG/DL (1.8-2.4); POTASSIUM SERUM 3.7 MEQ/L (3.5-5.1)
[2016-10-07] MEDS: FERROUS GLUCONATE 324 MG TAB PO SCH (09:32)
[2016-10-07] MEDS: LACTULOSE 20 GM/30 ML SYRUP UD PO SCH (09:32)
[2016-10-07] MEDS: HumaLOG INSULIN (NovoLOG) PER UNIT SC SCH ×4 (09:32→21:21)
[2016-10-07] MEDS: MIRALAX *UNIT DOSE* 17GM PACKET PO SCH ×2 (09:32→21:12)
[2016-10-07] MEDS: FINASTERIDE 5 MG TAB PO SCH (09:33)
[2016-10-07] MEDS: FIBER-CON 625 MG TAB PO SCH ×2 (09:33→21:12)
[2016-10-07] MEDS: OLANZapine 5 MG TAB PO SCH (09:33)
[2016-10-07] MEDS: DOCUSATE SODIUM 100 MG CAP PO SCH ×2 (09:33→21:12)
[2016-10-07] MEDS: predniSONE 10 MG TAB PO SCH (09:33)
[2016-10-07] MEDS: guaiFENesin ER 600 MG TAB PO SCH ×2 (09:33→21:12)
[2016-10-07] MEDS: TAMSULOSIN 0.4 MG CAP PO SCH (09:33)
[2016-10-07] MEDS: SIMVASTATIN 20 MG TAB PO SCH (09:33)
[2016-10-07] MEDS: TIMOLOL MALEATE 0.5% OPHTH SOLN 5 ML OD SCH (09:34)
[2016-10-07] MEDS: amLODIPine 5 MG TAB PO SCH (09:34)
[2016-10-07] MEDS: PILOCARPINE 1% OPHTH SOLN 15 ML OD SCH (09:34)
[2016-10-07] MEDS: BRIMONIDINE 0.15% OPHTH SOLN 5 ML OD SCH (09:34)
[2016-10-07] MEDS: DORZOLAMIDE 2% OPHTH SOLN 10 ML BTL OD SCH (09:34)
[2016-10-07] MEDS: NYSTATIN 100,000 UNITS/GM TOPICAL PWD 15 GM TOP SCH ×2 (09:35→21:13)
[2016-10-07] MEDS ORDERED: D5W 1,000 ML IV ONE (11:15)
--- NOTE | 2016-10-07 11:35 | IPN ---
DATE: 10/07/2016 80-year-old gentleman seen at bedside. He is more alert today. He is talking with the nurse as I entered the room. His nasogastric tube has been removed. He denies any chest pain, nausea or vomiting. No abdominal pain. OBJECTIVE: Temperature is 98.2, pulse 82, respiratory rate 16, blood pressure 141/78, SpO2 is 90% on 2 liters. GENERAL: The patient appears to be in no acute distress. He is alert, oriented. HEENT: Unremarkable. LUNGS: Clear. HEART: Regular rate and rhythm. ABDOMEN: Slightly distended. Positive bowel sounds. No masses or rebound. EXTREMITIES: No edema. No calf tenderness. LABORATORY DATA: White count 6.4, hemoglobin 8.8, platelets are 213,000. Sodium 141, potassium 3.7, chloride 92, anion gap 9, BUN is 43, creatinine 1.83, glucose 181, magnesium 3.1, C-reactive protein is 1.41 down from 1.97. ASSESSMENT/PLAN: 1. Influenza. Continue current treatment, finish out Tamiflu. Continue with supportive measures. 2. Chronic obstructive pulmonary disease (COPD), possible exacerbation. Continue with prednisone taper, nebulizers, and Mucinex. 3. Acute on chronic kidney disease. He has a history of chronic kidney disease stage III. Lasix and TIMOTHY inhibitors are on hold. We did bolus him some more fluid today to see how he progresses with starting a diet and avoid nephrotoxic drugs. Reevaluate renal profile at noon. Urinary retention with Santos catheter in place. Appreciate Dr. Mckenzie's input. He does appear to be draining appropriately. Continue Flomax, Proscar. He will likely be discharged with the Santos catheter and followup as an outpatient. 4. Pancytopenia, stable. 5. Hematuria with clot, status post cystoscopy and treatment with Dr. Mckenzie. Aspirin is on hold. His hemoglobin and hematocrit will continue to trend. 6. Ileus versus small-bowel obstruction, does appear to be improving. NG tube is out. Appreciate Dr. Ross's input. 7. Rectal prolapse which appears to be longstanding. This can be followed up as an outpatient. 8. Hypernatremia resolved. 9. Diabetes. Continue fingersticks with sliding scale coverage. 10. Blindness secondary to glaucoma. Continue with eyedrops. 11. Hypertension. Continue with Norvasc with hold parameters. Currently Lasix and TIMOTHY inhibitors are on hold. 12. Hyperlipidemia. Continue statin. 13. Psychiatric disorder, not otherwise specified. No audiovisual hallucinations. Not suicidal. Continue Zyprexa. 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 Followup as an outpatient. 15. Deep vein thrombosis (DVT) prophylaxis. Status post sequential compression device (SCD). DISPOSITION: We will see how he progresses today, perhaps he will be ready for discharge in the next 24-48 hours. He will need outpatient followup with urology and perhaps a colorectal surgeon should the longstanding rectal prolapse require repair.
[2016-10-07 13:08] LABS: ALBUMIN 2.9 GM/DL (3.2-5.2); CALCIUM LEVEL 9.1 MG/DL (8.8-10.2); CREATININE FOR GFR 1.91 MG/DL (0.70-1.30); GLOMERULAR FILTRATION RATE 36.2 (>35); PHOSPHORUS LEVEL 4.9 MG/DL (2.5-4.9); POTASSIUM SERUM 3.7 MEQ/L (3.5-5.1)
[2016-10-07 14:00] VITALS: BP 133/62
[2016-10-07] MEDS: cefTRIAXone SOD 1 GM in D5W MINI-BAG PLUS 50 ML IV SCH (15:56)
[2016-10-07 22:00] VITALS: BP 132/64
[2016-10-08] MEDS: IPRATROPIUM 0.5MG/ALBUTEROL 2.5MG INH SOL UD 3ML (DUONEB)(J7620) NEB SCH ×6 (04:04→23:33)
[2016-10-08 06:00] VITALS: BP 140/66
[2016-10-08 06:34] LABS: BASO % 0.1 % (0.0-1.0); EOS # 0.1 K/mm3 (0.0-0.50); EOS % 1.1 % (0.0-3.0); LARGE UNSTAINED CELL # 0.1 K/mm3 (0.0-0.4); LARGE UNSTAINED CELL % 1.9 % (0.0-4.0); LYMPH # 0.8 K/mm3 (1.5-4.5); LYMPH % 14.3 % (24.0-44.0); MEAN CORPUSCULAR HEMOGLOBIN 30.3 pg (27.0-33.0); MEAN CORPUSCULAR HGB CONC 33.5 g/dl (32.0-36.5); MEAN CORPUSCULAR VOLUME 90.4 fl (80.0-96.0); MONO # 0.2 K/mm3 (0.0-0.8); MONO % 3.9 % (0.0-5.0); NEUTROPHILS # 4.5 K/mm3 (1.8-7.7); NEUTROPHILS % 78.7 % (36.0-66.0); PLATELET COUNT, AUTOMATED 203 k/mm3 (150-450); RED CELL DISTRIBUTION WIDTH 12.3 % (11.5-14.5); WHITE BLOOD COUNT 5.7 K/mm3 (4.0-10.0)
[2016-10-08 06:49] LABS: CALCIUM LEVEL 8.3 MG/DL (8.8-10.2); CREATININE FOR GFR 1.5 MG/DL (0.70-1.30); GLOMERULAR FILTRATION RATE 47.8 (>35); MAGNESIUM LEVEL 3.1 MG/DL (1.8-2.4); POTASSIUM SERUM 3.5 MEQ/L (3.5-5.1)
[2016-10-08] MEDS: LACTULOSE 20 GM/30 ML SYRUP UD PO SCH (08:52)
[2016-10-08] MEDS: MIRALAX *UNIT DOSE* 17GM PACKET PO SCH ×2 (08:52→20:50)
[2016-10-08] MEDS: TAMSULOSIN 0.4 MG CAP PO SCH (08:53)
[2016-10-08] MEDS: predniSONE 10 MG TAB PO SCH (08:53)
[2016-10-08] MEDS: FERROUS GLUCONATE 324 MG TAB PO SCH (08:53)
[2016-10-08] MEDS: SIMVASTATIN 20 MG TAB PO SCH (08:53)
[2016-10-08] MEDS: DOCUSATE SODIUM 100 MG CAP PO SCH ×2 (08:53→20:51)
[2016-10-08] MEDS: FINASTERIDE 5 MG TAB PO SCH (08:53)
[2016-10-08] MEDS: guaiFENesin ER 600 MG TAB PO SCH ×2 (08:54→20:50)
[2016-10-08] MEDS: amLODIPine 5 MG TAB PO SCH (08:54)
[2016-10-08] MEDS: OLANZapine 5 MG TAB PO SCH (08:54)
[2016-10-08] MEDS: FIBER-CON 625 MG TAB PO SCH ×2 (08:54→20:50)
[2016-10-08] MEDS: BRIMONIDINE 0.15% OPHTH SOLN 5 ML OD SCH (08:55)
[2016-10-08] MEDS: TIMOLOL MALEATE 0.5% OPHTH SOLN 5 ML OD SCH (08:55)
[2016-10-08] MEDS: HumaLOG INSULIN (NovoLOG) PER UNIT SC SCH ×4 (08:55→20:51)
[2016-10-08] MEDS: DORZOLAMIDE 2% OPHTH SOLN 10 ML BTL OD SCH (08:55)
[2016-10-08] MEDS: PILOCARPINE 1% OPHTH SOLN 15 ML OD SCH (08:56)
[2016-10-08] MEDS: NYSTATIN 100,000 UNITS/GM TOPICAL PWD 15 GM TOP SCH ×2 (08:57→20:50)
[2016-10-08] MEDS: D5W 1,000 ML IV SCH ×2 (09:11→18:47)
--- NOTE | 2016-10-08 10:33 | IPNPDOC ---
Assessment/Plan Date Seen The patient was seen on 10/08/16. Plan/VTE VTE Prophylaxis Ordered?: Yes VTE Exclusion Mechanical Proph: Low Risk for VTE Plan/Urinary Catheter Reason for insertion/continuin: Acute obstruct/retention Subjective Review oF Systems Chief Complaint The patient is a 80-year-old male admitted with a reason for visit of Acute Kidney Failure Pancytopenia; Influenza B; transient hematuria secondary to jackson insertion. Jackson clear. Comfortable. 80, 19, 98.4f, 132/70. Abdo: Benign. Jackson clear. UA (09/29/16) pH 5.0, rbc+2, wbc+1. (10/08/16) Hg 8.4, wbc 5.7, Cr 1.5 (down). CT w/o IV (10/02/16) LMP B1 cyst. A: Above. P: Jackson to SD. f/u Urology after dc home for possible hematuria evaluation/ LUTS management. Objective Vital Signs/I&O Vital Signs Date Time Temp Pulse Resp B/P Pulse Ox O2 Delivery O2 Flow Rate FiO2 10/08/16 08:54 80 132/70 10/08/16 07:58 Nasal Cannula 2.0 10/08/16 06:00 98.4 19 94 I&O- Last 24 Hours up to 6 AM 10/08/16 06:00 Intake Total 3785 ml Output Total 1950 ml Balance 1835 ml Laboratory Data Labs 24H Laboratory Tests 2 10/07/16 11:41: Albumin 2.9L, Blood Urea Nitrogen 43H, Creatinine 1.91H, Sodium Level 137, Potassium Level 3.7, Chloride Level 88L, Carbon Dioxide Level 37H, Anion Gap 12 , Calcium Level 9.1, Glomerular Filtration Rate 36.2, Phosphorus Level 4.9 10/07/16 12:07: Bedside Glucose (Misc Panel) 140H 10/07/16 16:53: Bedside Glucose (Misc Panel) 212H 10/07/16 20:04: Bedside Glucose (Misc Panel) 251H 10/08/16 06:04: Anion Gap 7L, White Blood Count 5.7, Red Blood Count 2.78L, Hemoglobin 8.4L, Hematocrit 25.1L, Mean Corpuscular Volume 90.4, Mean Corpuscular Hemoglobin 30.3 , Mean Corpuscular Hemoglobin Concent 33.5, Red Cell Distribution Width 12.3, Platelet Count 203, Neutrophils (%) (Auto) 78.7H, Lymphocytes (%) (Auto) 14.3L, Monocytes (%) (Auto) 3.9, Eosinophils (%) (Auto) 1.1, Basophils (%) (Auto) 0.1, Neutrophils # (Auto) 4.5, Lymphocytes # (Auto) 0.8L, Monocytes # (Auto) 0.2, Eosinophils # (Auto) 0.1, Basophils # (Auto) 0.0, Blood Urea Nitrogen 40H, Creatinine 1.50H, Sodium Level 132L, Potassium Level 3.5, Chloride Level 88L, Carbon Dioxide Level 37H, Calcium Level 8.3L, Glomerular Filtration Rate 47.8, Large Unclassified Cells # 0.1, Large Unclassified Cells % 1.9, Magnesium Level 3.1H CBC/BMP Laboratory Tests 10/07/16 11:41 Anion Gap 12 10/08/16 06:04 Calcium Level 8.3 L, Red Blood Count 2.78 L, Mean Corpuscular Volume 90.4, Mean Corpuscular Hemoglobin 30.3, Mean Corpuscular Hemoglobin Concent 33.5, Red Cell Distribution Width 12.3, Neutrophils (%) (Auto) 78.7 H, Lymphocytes (%) (Auto) 14.3 L, Monocytes (%) (Auto) 3.9, Eosinophils (%) (Auto) 1.1, Basophils (%) ( Auto) 0.1, Neutrophils # (Auto) 4.5, Lymphocytes # (Auto) 0.8 L, Monocytes # ( Auto) 0.2, Eosinophils # (Auto) 0.1, Basophils # (Auto) 0.0 FSBS Laboratory Tests Test 10/07/16 12:07 10/07/16 16:53 10/07/16 20:04 Range/Units Bedside Glucose (Misc Panel) 140 212 251 83-110 MG/DL Microbiology Microbiology 09/29/16 Gastrointestinal Tract Panel (PCR) - Final, Complete 09/28/16 Respiratory Virus Panel (PCR) ([facility]) - Final, Complete Influenza B 09/28/16 Influenza Virus Type A Antigen - Final, Complete 09/28/16 Influenza Virus Type B Antigen - Final, Complete CHANA RODRIGUEZ MD Oct 08, 2016 10:33
--- NOTE | 2016-10-08 12:02 | IPN ---
DATE: 10/08/2016 80-year-old seen with no overnight issues. He has had a bowel movement yesterday. His is present at bedside. He denies chest pain, shortness breath, productive sputum, cough or hemoptysis OBJECTIVE: Temperature 98.4, pulse 95, respiratory rate is 19, blood pressure (BP) 140/66, and SPO2 is 94% on 2 liters. General: The patient appears to be in no acute distress, pleasant. Has one bowel movement recorded yesterday and one recorded this morning. HEENT is unremarkable. Lungs: Clear. Heart: Regular rate and rhythm. Abdomen: Soft. Extremities: No edema. No calf tenderness. LABORATORIES: White count 5.7, hemoglobin 8.4 and platelets 203,000. Sodium 132, potassium 3.5, chloride 88, bicarbonate 37, anion gap 7, BUN is 40, creatinine 1.50 down from 1.91, and glucose 169. ASSESSMENT/PLAN: 1. Influenza. Finished Tamiflu. Appears to be doing well otherwise. 2. Chronic obstructive pulmonary disease (COPD), possible exacerbation. Continue with prednisone taper, nebulizers and Mucinex. 3. Acute on chronic kidney disease, history of chronic kidney disease (CKD) stage III. Lasix and TIMOTHY inhibitors are on hold for now as acute kidney injury does appear to be improving. Possibly worsened by dehydration and obstructive uropathy with urinary retention. Santos catheter remains in place. Dr. Castillo Arreola has taken over for urology today. We did have a discussion and he has advised that the patient remain with a Santos catheter through discharge and followup as an outpatient. Continue on Flomax and Proscar. 4. Pancytopenia. Stable. 5. Hematuria with clot removed by cystoscopy. Aspirin will be restarted today since hemoglobin and hematocrit (H and H) remains normal. 6. Ileus versus small bowel obstruction. He has improved. NG tube has been discontinued. Appreciate Dr. Ross's input. His diet is currently on clear liquids. Will defer to surgery to advance diet. 7. Rectal prolapse. Appears to be longstanding and reducible. He will need outpatient followup. 8. Hypernatremia, resolved. The patient is actually slightly low with his sodium today. Will follow. 9. Diabetes. Continue fingersticks with sliding scale coverage. 10. Blindness secondary to glaucoma. Stable. 11. Hypertension. Lasix and TIMOTHY inhibitors are currently on hold due to acute kidney injury (ED). Will resume in the next 24-48 hours. Continue on Norvasc. 12. Hyperlipidemia. Continue statin therapy. 13. Psychiatric disorder, not otherwise specified. No audiovisual hallucinations. No suicidal ideation. Continue Zyprexa. 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 Followup as an outpatient. 15. Deep vein thrombosis (DVT) prophylaxis. Thromboembolic deterrent stockings (TEDs) and sequentials. DISPOSITION: Physical therapy has seen him. He does appear to still be unstable, requiring 24/7 care, and will continue to see how he does over the next few days. I did discuss this with the patient's who is concerned and would rather he not be discharged home until he is physically able. We will reevaluate tomorrow and again on Monday and have a discussion with Patient and Family Services (PFS) at that time regarding home safety issues. SERENA
[2016-10-08 14:00] VITALS: BP 139/57
[2016-10-08] MEDS: cefTRIAXone SOD 1 GM in D5W MINI-BAG PLUS 50 ML IV SCH (15:37)
[2016-10-08] MEDS: ASPIRIN 325 MG TAB PO SCH (16:53)
[2016-10-08 22:00] VITALS: BP 130/61
[2016-10-09] MEDS: IPRATROPIUM 0.5MG/ALBUTEROL 2.5MG INH SOL UD 3ML (DUONEB)(J7620) NEB SCH ×6 (03:37→23:20)
[2016-10-09] MEDS: D5W 1,000 ML IV SCH ×2 (05:47→15:34)
[2016-10-09 06:00] VITALS: BP 117/69
[2016-10-09 06:21] LABS: BASO % 0.1 % (0.0-1.0); EOS % 0.5 % (0.0-3.0); LARGE UNSTAINED CELL # 0.1 K/mm3 (0.0-0.4); LARGE UNSTAINED CELL % 1.4 % (0.0-4.0); LYMPH # 0.6 K/mm3 (1.5-4.5); LYMPH % 9.6 % (24.0-44.0); MEAN CORPUSCULAR HEMOGLOBIN 30.3 pg (27.0-33.0); MEAN CORPUSCULAR HGB CONC 33.2 g/dl (32.0-36.5); MEAN CORPUSCULAR VOLUME 91.2 fl (80.0-96.0); MONO # 0.3 K/mm3 (0.0-0.8); MONO % 4.9 % (0.0-5.0); NEUTROPHILS # 4.9 K/mm3 (1.8-7.7); NEUTROPHILS % 83.6 % (36.0-66.0); PLATELET COUNT, AUTOMATED 204 k/mm3 (150-450); RED CELL DISTRIBUTION WIDTH 12.4 % (11.5-14.5); WHITE BLOOD COUNT 5.9 K/mm3 (4.0-10.0)
[2016-10-09 06:30] LABS: CALCIUM LEVEL 8.3 MG/DL (8.8-10.2); CREATININE FOR GFR 1.34 MG/DL (0.70-1.30); GLOMERULAR FILTRATION RATE 54.5 (>35); MAGNESIUM LEVEL 2.9 MG/DL (1.8-2.4); POTASSIUM SERUM 3.8 MEQ/L (3.5-5.1)
[2016-10-09] MEDS: HumaLOG INSULIN (NovoLOG) PER UNIT SC SCH ×4 (07:46→21:31)
[2016-10-09] MEDS: predniSONE 10 MG TAB PO SCH (09:24)
[2016-10-09] MEDS: guaiFENesin ER 600 MG TAB PO SCH ×2 (09:24→20:28)
[2016-10-09] MEDS: ASPIRIN 325 MG TAB PO SCH (09:24)
[2016-10-09] MEDS: FIBER-CON 625 MG TAB PO SCH ×2 (09:24→20:28)
[2016-10-09] MEDS: OLANZapine 5 MG TAB PO SCH (09:24)
[2016-10-09] MEDS: NYSTATIN 100,000 UNITS/GM TOPICAL PWD 15 GM TOP SCH ×2 (09:25→20:29)
[2016-10-09] MEDS: FINASTERIDE 5 MG TAB PO SCH (09:25)
[2016-10-09] MEDS: MIRALAX *UNIT DOSE* 17GM PACKET PO SCH ×2 (09:25→20:27)
[2016-10-09] MEDS: LACTULOSE 20 GM/30 ML SYRUP UD PO SCH (09:25)
[2016-10-09] MEDS: DOCUSATE SODIUM 100 MG CAP PO SCH ×2 (09:25→20:28)
[2016-10-09] MEDS: SIMVASTATIN 20 MG TAB PO SCH (09:25)
[2016-10-09] MEDS: FERROUS GLUCONATE 324 MG TAB PO SCH (09:25)
[2016-10-09] MEDS: amLODIPine 5 MG TAB PO SCH (09:25)
[2016-10-09] MEDS: TAMSULOSIN 0.4 MG CAP PO SCH (09:25)
[2016-10-09] MEDS: DORZOLAMIDE 2% OPHTH SOLN 10 ML BTL OD SCH (09:26)
[2016-10-09] MEDS: TIMOLOL MALEATE 0.5% OPHTH SOLN 5 ML OD SCH (09:26)
[2016-10-09] MEDS: PILOCARPINE 1% OPHTH SOLN 15 ML OD SCH (09:26)
[2016-10-09] MEDS: BRIMONIDINE 0.15% OPHTH SOLN 5 ML OD SCH (09:26)
--- NOTE | 2016-10-09 09:37 | IPNPDOC ---
Assessment/Plan Date Seen The patient was seen on 10/09/16. Plan/VTE VTE Prophylaxis Ordered?: Yes VTE Exclusion Mechanical Proph: Low Risk for VTE Plan/Urinary Catheter Reason for insertion/continuin: Acute obstruct/retention Subjective Review oF Systems Chief Complaint The patient is a 80-year-old male admitted with a reason for visit of Acute Kidney Failure Pancytopenia; Influenza B; transient hematuria secondary to jackson insertion. Jackson clear. Comfortable. 99, 19, 98.2f, 142/65. Abdo: Benign. Jackson clear. UA (09/29/16) pH 5.0, rbc+2, wbc+1. (10/09/16) Hg 8.2, wbc 5.9, Cr 1.3 (down). CT w/o IV (10/02/16) LMP B1 cyst. A: Above. P: Jackson to SD. f/u Urology after dc home for possible hematuria evaluation/ LUTS management. Consider TOV prior to dc home. Flomax. Objective Vital Signs/I&O Vital Signs Date Time Temp Pulse Resp B/P Pulse Ox O2 Delivery O2 Flow Rate FiO2 10/09/16 09:25 99 142/65 10/09/16 06:00 98.2 19 94 High Flow Cannula 2.0 I&O- Last 24 Hours up to 6 AM 10/09/16 06:00 Intake Total 2215 ml Output Total 2600 ml Balance -385 ml Laboratory Data Labs 24H Laboratory Tests 2 10/08/16 11:54: Bedside Glucose (Misc Panel) 146H 10/08/16 16:44: Bedside Glucose (Misc Panel) 225H 10/08/16 20:11: Bedside Glucose (Misc Panel) 257H 10/09/16 05:46: Anion Gap 8, White Blood Count 5.9, Red Blood Count 2.71L, Hemoglobin 8.2L, Hematocrit 24.7L, Mean Corpuscular Volume 91.2, Mean Corpuscular Hemoglobin 30.3 , Mean Corpuscular Hemoglobin Concent 33.2, Red Cell Distribution Width 12.4, Platelet Count 204, Neutrophils (%) (Auto) 83.6H, Lymphocytes (%) (Auto) 9.6L, Monocytes (%) (Auto) 4.9, Eosinophils (%) (Auto) 0.5, Basophils (%) (Auto) 0.1, Neutrophils # (Auto) 4.9, Lymphocytes # (Auto) 0.6L, Monocytes # (Auto) 0.3, Eosinophils # (Auto) 0.0, Basophils # (Auto) 0.0, Blood Urea Nitrogen 29H, Creatinine 1.34H, Sodium Level 132L, Potassium Level 3.8, Chloride Level 90L, Carbon Dioxide Level 34H, Calcium Level 8.3L, Glomerular Filtration Rate 54.5, Large Unclassified Cells # 0.1, Large Unclassified Cells % 1.4, Magnesium Level 2.9H CBC/BMP Laboratory Tests 10/09/16 05:46 Calcium Level 8.3 L, Red Blood Count 2.71 L, Mean Corpuscular Volume 91.2, Mean Corpuscular Hemoglobin 30.3, Mean Corpuscular Hemoglobin Concent 33.2, Red Cell Distribution Width 12.4, Neutrophils (%) (Auto) 83.6 H, Lymphocytes (%) (Auto) 9.6 L, Monocytes (%) (Auto) 4.9, Eosinophils (%) (Auto) 0.5, Basophils (%) (Auto ) 0.1, Neutrophils # (Auto) 4.9, Lymphocytes # (Auto) 0.6 L, Monocytes # (Auto) 0.3, Eosinophils # (Auto) 0.0, Basophils # (Auto) 0.0 FSBS Laboratory Tests Test 10/08/16 11:54 10/08/16 16:44 10/08/16 20:11 Range/Units Bedside Glucose (Misc Panel) 146 225 257 83-110 MG/DL Microbiology Microbiology 09/29/16 Gastrointestinal Tract Panel (PCR) - Final, Complete CHANA RODRIGUEZ MD Oct 09, 2016 09:37
--- NOTE | 2016-10-09 11:06 | IPN ---
DATE: 10/09/2016 80-year-old gentleman seen at bedside. No overnight issues report. He is resting comfortably. No chest pain, nausea, vomiting. No abdominal pain. OBJECTIVE: Temperature is 98.2, pulse 95, respiratory rate 19, blood pressure (BP) 117/69, SpO2 is 94% on 2 liters. General: The patient appears to be in no acute distress. He is alert, oriented , pleasant. HEENT: Unremarkable. Lungs: Clear. Heart: Regular rate and rhythm. Abdomen is soft, nontender, nondistended. Positive bowel sounds. No masses. No rebound. Extremities: No edema. No calf tenderness. LABORATORY DATA: White count 5.9, hemoglobin 8.2, platelets are 204,000. Sodium 132, potassium 3.8, chloride is 90, bicarbonate 34, anion gap 8, BUN is 29, creatinine 1.34, down from 1.5, glucose 189, calcium 8.3, magnesium 2.9. ASSESSMENT AND PLAN: 1. Influenza. Finished Tamiflu. Doing well otherwise. 2. Chronic obstructive pulmonary disease (COPD), possible exacerbation. Continue with predinsone taper, nebulizers and Mucinex. Rocephin is discontinued. 3. Acute on chronic renal failure with chronic kidney disease (CKD) stage III. Lasix, angiotensin-converting enzyme (TIMOTHY) inhibitors will be restarted in the next 24 hours or so. 4. Obstructive uropathy. Did speak to urology today. The plan will be to continue with Flomax, Proscar and perhaps try a trial of voiding tomorrow. 5. Pancytopenia, stable. 6. Hematuria, resolved. Aspirin has been restarted. Will continue follow hemoglobin and hematocrit. 7. Ileus versus small bowel obstruction, resolved. Nasogastric (NG) tube has been discontinued and advancing diet. 8. Rectal prolapse. Appears to be longstanding and is reducible. Can followup outpatient with colorectal specialist. 9. Hyponatremia. Will continue to follow. 10. Diabetes. Continue fingersticks, sliding scale coverage and consistent carbohydrate diet. 11. Blindness secondary to glaucoma, stable. 12. Hypertension. Will plan on resuming Lasix and TIMOTHY inhibitors within the next day or so 13. Hyperlipidemia. Continue statin therapy. 14. Psychiatric disorder, not otherwise specified. No audiovisual hallucinations. No suicidal ideation. Continue on Zyprexa. 15. 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 No current issues and followup outpatient. 16. Deep venous thrombosis (DVT) prophylaxis with thromboembolic deterrents (TEDs) and sequentials. DISPOSITION: We will see how physical therapy feels he is progressing over the next 24 hours. Patient and family services (PFS) will be back tomorrow and will discuss appropriate disposition, home versus placement. SERENA
[2016-10-09 14:00] VITALS: BP 157/71
[2016-10-09 22:00] VITALS: BP 138/71
[2016-10-10] MEDS: D5W 1,000 ML IV SCH ×3 (01:10→21:57)
[2016-10-10] MEDS: IPRATROPIUM 0.5MG/ALBUTEROL 2.5MG INH SOL UD 3ML (DUONEB)(J7620) NEB SCH ×6 (03:46→23:01)
[2016-10-10 06:00] VITALS: BP 139/73
[2016-10-10 06:08] LABS: BASO % 0.1 % (0.0-1.0); EOS % 0.5 % (0.0-3.0); LARGE UNSTAINED CELL # 0.2 K/mm3 (0.0-0.4); LARGE UNSTAINED CELL % 2.1 % (0.0-4.0); LYMPH # 0.9 K/mm3 (1.5-4.5); LYMPH % 10.8 % (24.0-44.0); MEAN CORPUSCULAR HEMOGLOBIN 29.9 pg (27.0-33.0); MEAN CORPUSCULAR HGB CONC 33.2 g/dl (32.0-36.5); MONO # 0.4 K/mm3 (0.0-0.8); MONO % 4.7 % (0.0-5.0); NEUTROPHILS # 6.9 K/mm3 (1.8-7.7); NEUTROPHILS % 81.8 % (36.0-66.0); PLATELET COUNT, AUTOMATED 220 k/mm3 (150-450); RED CELL DISTRIBUTION WIDTH 12.4 % (11.5-14.5); WHITE BLOOD COUNT 8.4 K/mm3 (4.0-10.0)
[2016-10-10 06:14] LABS: CALCIUM LEVEL 8.6 MG/DL (8.8-10.2); CREATININE FOR GFR 1.26 MG/DL (0.70-1.30); GLOMERULAR FILTRATION RATE 58.5 (>35); MAGNESIUM LEVEL 2.6 MG/DL (1.8-2.4); POTASSIUM SERUM 4.2 MEQ/L (3.5-5.1)
[2016-10-10] MEDS: MIRALAX *UNIT DOSE* 17GM PACKET PO SCH ×2 (09:16→21:56)
[2016-10-10] MEDS: SIMVASTATIN 20 MG TAB PO SCH (09:16)
[2016-10-10] MEDS: DOCUSATE SODIUM 100 MG CAP PO SCH ×2 (09:16→21:57)
[2016-10-10] MEDS: OLANZapine 5 MG TAB PO SCH (09:16)
[2016-10-10] MEDS: HumaLOG INSULIN (NovoLOG) PER UNIT SC SCH (09:16)
[2016-10-10] MEDS: FERROUS GLUCONATE 324 MG TAB PO SCH (09:16)
[2016-10-10] MEDS: predniSONE 10 MG TAB PO SCH (09:16)
[2016-10-10] MEDS: FIBER-CON 625 MG TAB PO SCH ×2 (09:17→21:56)
[2016-10-10] MEDS: guaiFENesin ER 600 MG TAB PO SCH ×2 (09:17→21:56)
[2016-10-10] MEDS: ASPIRIN 325 MG TAB PO SCH (09:17)
[2016-10-10] MEDS: FINASTERIDE 5 MG TAB PO SCH (09:17)
[2016-10-10] MEDS: TAMSULOSIN 0.4 MG CAP PO SCH (09:17)
[2016-10-10] MEDS: TIMOLOL MALEATE 0.5% OPHTH SOLN 5 ML OD SCH (09:17)
[2016-10-10] MEDS: BRIMONIDINE 0.15% OPHTH SOLN 5 ML OD SCH (09:17)
[2016-10-10] MEDS: LACTULOSE 20 GM/30 ML SYRUP UD PO SCH (09:17)
[2016-10-10] MEDS: PILOCARPINE 1% OPHTH SOLN 15 ML OD SCH (09:18)
[2016-10-10] MEDS: amLODIPine 5 MG TAB PO SCH (09:18)
[2016-10-10] MEDS: DORZOLAMIDE 2% OPHTH SOLN 10 ML BTL OD SCH (09:18)
[2016-10-10] MEDS: NYSTATIN 100,000 UNITS/GM TOPICAL PWD 15 GM TOP SCH ×2 (09:18→21:57)
--- NOTE | 2016-10-10 11:46 | IPN ---
DATE: 10/10/2016 Janice is seen on 4 pavilion while rounding for the hospitalist. Family member with him. His medical problems are fairly stable, but we are still dealing obstructive uropathy. He said he is not short of breath and just wondering when he is going to go home. PHYSICAL EXAMINATION: 139/73, pulse 90, respiratory rate 19, 92% oxygen saturation. General appearance: Resting comfortably. Lungs: Decreased breath sounds but clear. Heart: Regular rate and rhythm. 1/6 systolic ejection murmur. Abdomen: Soft, nontender. No masses. No peripheral edema. LABORATORIES: CBC stable from yesterday. BMP is unremarkable. Creatinine is down to 1.26. IMPRESSION: 1. Obstructive uropathy. Plan is for a trial of voiding today. We will discontinue the Santos catheter, give him a trial of void. 2. Influenza. He has finished off his Tamiflu. 3. Chronic obstructive pulmonary disease (COPD). He is on a prednisone taper and bronchodilator. 4. Acute renal failure, resolved with the correction of obstructive uropathy. Yesterday's note indicates about restarting diuretic and angiotensin-converting enzyme (TIMOTHY) inhibitor. His blood pressure is well controlled and he does not have evidence of volume overload, so I am not restarting those yet today. 5. Query rectal bleeding. Per nursing staff, there was a spot of blood rectally. Followup CBC has been ordered. He has rectal prolapse and should see a colorectal specialist as an outpatient. 6. Hypertension. Lasix and TIMOTHY inhibitors are on hold. I am not restarting them. Blood pressure is well controlled without them at this point. 7. History of some type of psychiatric disorder. He is on Zyprexa, which is controlling whatever symptoms he had. 8. Hyponatremia, mild, stable and probably due to Zyprexa. 9. Diabetes. He is getting scant coverage. At 80, I am not sure if there is any benefit from insulin a day. As he weans off his prednisone, his sugars will improve further. I am going to stop his fingersticks and coverage.
[2016-10-10 14:00] VITALS: BP 132/62
[2016-10-10 22:00] VITALS: BP 150/70
[2016-10-11] MEDS: IPRATROPIUM 0.5MG/ALBUTEROL 2.5MG INH SOL UD 3ML (DUONEB)(J7620) NEB SCH ×3 (03:07→11:17)
[2016-10-11 06:00] VITALS: BP 139/70
[2016-10-11] MEDS: D5W 1,000 ML IV SCH ×2 (06:22→08:32)
[2016-10-11 06:41] LABS: BASO % 0.1 % (0.0-1.0); EOS % 0.5 % (0.0-3.0); LARGE UNSTAINED CELL # 0.1 K/mm3 (0.0-0.4); LARGE UNSTAINED CELL % 1.9 % (0.0-4.0); LYMPH # 0.9 K/mm3 (1.5-4.5); LYMPH % 9.5 % (24.0-44.0); MEAN CORPUSCULAR HEMOGLOBIN 30.4 pg (27.0-33.0); MEAN CORPUSCULAR HGB CONC 33.4 g/dl (32.0-36.5); MEAN CORPUSCULAR VOLUME 90.9 fl (80.0-96.0); MONO # 0.4 K/mm3 (0.0-0.8); MONO % 5.5 % (0.0-5.0); NEUTROPHILS # 6.1 K/mm3 (1.8-7.7); NEUTROPHILS % 82.5 % (36.0-66.0); PLATELET COUNT, AUTOMATED 212 k/mm3 (150-450); RED CELL DISTRIBUTION WIDTH 12.6 % (11.5-14.5); WHITE BLOOD COUNT 7.4 K/mm3 (4.0-10.0)
[2016-10-11 06:54] LABS: CALCIUM LEVEL 8.9 MG/DL (8.8-10.2); CREATININE FOR GFR 1.37 MG/DL (0.70-1.30); GLOMERULAR FILTRATION RATE 53.1 (>35); MAGNESIUM LEVEL 2.8 MG/DL (1.8-2.4); POTASSIUM SERUM 4.5 MEQ/L (3.5-5.1)
[2016-10-11] MEDS: ASPIRIN 325 MG TAB PO SCH (08:29)
[2016-10-11] MEDS: MIRALAX *UNIT DOSE* 17GM PACKET PO SCH (08:29)
[2016-10-11] MEDS: PILOCARPINE 1% OPHTH SOLN 15 ML OD SCH (08:29)
[2016-10-11] MEDS: NYSTATIN 100,000 UNITS/GM TOPICAL PWD 15 GM TOP SCH (08:29)
[2016-10-11] MEDS: LACTULOSE 20 GM/30 ML SYRUP UD PO SCH (08:29)
[2016-10-11] MEDS: TIMOLOL MALEATE 0.5% OPHTH SOLN 5 ML OD SCH (08:29)
[2016-10-11] MEDS: DORZOLAMIDE 2% OPHTH SOLN 10 ML BTL OD SCH (08:29)
[2016-10-11] MEDS: BRIMONIDINE 0.15% OPHTH SOLN 5 ML OD SCH (08:29)
[2016-10-11 08:30] VITALS: BP 139/70
[2016-10-11] MEDS: guaiFENesin ER 600 MG TAB PO SCH (08:30)
[2016-10-11] MEDS: OLANZapine 5 MG TAB PO SCH (08:30)
[2016-10-11] MEDS: DOCUSATE SODIUM 100 MG CAP PO SCH (08:30)
[2016-10-11] MEDS: amLODIPine 5 MG TAB PO SCH (08:30)
[2016-10-11] MEDS: TAMSULOSIN 0.4 MG CAP PO SCH (08:31)
[2016-10-11] MEDS: FIBER-CON 625 MG TAB PO SCH (08:31)
[2016-10-11] MEDS: SIMVASTATIN 20 MG TAB PO SCH (08:31)
[2016-10-11] MEDS: FERROUS GLUCONATE 324 MG TAB PO SCH (08:31)
[2016-10-11] MEDS: FINASTERIDE 5 MG TAB PO SCH (08:31)
[2016-10-11] MEDS ORDERED: predniSONE 20 MG TAB PO SCH (09:00)
[2016-10-11] MEDS ORDERED: FERR32TA PO (13:01)
[2016-10-11] MEDS ORDERED: CITR1SOL PO (13:01)
[2016-10-11] MEDS ORDERED: PRED10TA PO (13:15)
--- NOTE | 2016-10-11 20:37 | DSES ---
DATE OF ADMISSION: 09/28/2016 DATE OF DISCHARGE: 10/11/2016 DISCHARGE DIAGNOSIS: Influenza. SECONDARY DIAGNOSES: 1. Decompensated chronic obstructive pulmonary disease. 2. Acute on chronic renal failure. 3. Obstructive uropathy. 4. Pancytopenia. 5. Hematuria. 6. Ileus. 7. Rectal prolapse. 8. Hyponatremia. 9. Type 2 diabetes. 10. Blindness secondary to glaucoma. 11. Hypertension. 12. Dyslipidemia. 13. Psychiatric disorder. HOSPITAL COURSE: The patient was admitted on September 28. At the time he presented with difficulty with breathing. The patient at his baseline has mental retardation (MR) and has very limited interaction. He had had fever, cough, and breathing heard, and so he was sent to the emergency department. He was admitted. He was seen in consultation by urology for obstructive uropathy. Patient did have acute renal failure and transient hematuria. He did have a Santos catheter placed, which did improve his symptoms. He was continued on medications for benign prostatic hypertrophy (BPH). He has had a history of a transurethral resection of the prostate (TURP) in the past. His symptoms had improved. His Santos catheter was discontinued, and he was able to complete a voiding trial. He will need to followup outpatient with urology. The patient was treated for 5 days with Tamiflu. He was also treated for decompensated chronic obstructive pulmonary disease (COPD). At this time his symptoms appear to have improved. Subjectively the patient denies any complaints and states that he wants to go home. OBJECTIVE: VITAL SIGNS: Temperature 98.6, pulse 83, respiratory rate 20, blood pressure (BP) 139/70, oxygen saturation 92% on room air. GENERAL: He is a disheveled, elderly man sitting up in bed. He does not make eye contact. He is in no acute distress. He has moist mucous membranes. No elevation in central venous pressure (CVP). CARDIOVASCULAR: S1, S2, regular. RESPIRATORY: Clear. ABDOMEN: Obese. EXTREMITIES: No clubbing, cyanosis, or edema. LABORATORY STUDIES: WBC 7.4, hemoglobin 8.7, chronically low, at least for the past 8 years, hematocrit 25.9, platelet count 212. Chemistry panel: Sodium 133, potassium 4.5, chloride 95, bicarbonate 31, BUN 30, creatinine 1.3. Microbiology: A nasopharynx swab from September 28 was positive for influenza B. IMAGING: The patient had a CT scan of the abdomen and pelvis completed, which revealed early ileus versus partial small-bowel obstruction, left inguinal hernia. Patient also had a CT scan of the chest that revealed cholelithiasis. He also had a renal ultrasound, which revealed small cortical cyst but otherwise unremarkable renal sonography. ASSESSMENT AND PLAN: This is an 80-year-old man with resolved influenza. 1. Influenza, resolved. The patient completed 5 days of Tamiflu. At his baseline, respiratory status is mildly decompensated. 2. Chronic obstructive pulmonary disease (COPD). Once again, the patient is at his baseline respiratory status. The patient is completing a prednisone taper for decompensated COPD. He does appear to be at his baseline. 3. Acute on chronic kidney disease. The patient's angiotensin-converting enzyme (TIMOTHY) inhibitor will be started at the time of discharge. We are currently holding his Lasix. Recommend that he followup with his primary care physician (PCP) within 7 days. Monitor his fluid status. Consider restarting Lasix as appropriate; however, at this time he did appear to be mildly dehydrated, so we will hold off for the time being. 4. Obstructive uropathy, likely contributing factor of the patient's acute on chronic kidney disease. He is to be continued on Flomax and Proscar. He will require followup with urology in the outpatient setting. He should followup with urology within 2 weeks. 5. Chronic anemia, stable, chronic. He is on iron supplementation. Appears to be low for the last 8 years. 6. Hematuria, resolved, likely secondary to traumatic Santos. His aspirin was restarted. 7. Ileus versus partial small-bowel obstruction, resolved. The patient did briefly have an nasogastric (NG) tube during his stay here. His diet has been advanced. 8. Rectal prolapse. Longstanding and reducible. Followup outpatient with colorectal surgeon as needed. 9. Hyponatremia, resolved. 10. Diabetes. Patient will be continued on his medications as prior to admission. 11. Blindness secondary to glaucoma. Continue with all of his home eyedrops. 12. Hypertension. We are resuming his TIMOTHY inhibitor. We are holding his Lasix. 13. Septemia. Continue statin. 14. MR Patient will be continued on Zyprexa. 15. Deep vein thrombosis (DVT) prophylaxis. Patient is on sequentials and thromboembolic deterrents (TEDs). DISPOSITION: The patient was cleared by physical therapy to go home only if he remains in a wheelchair. He can stand and pivot with one assist, but otherwise he cannot be walking independently or with a walker as he was previously prior to his hospitalization. Lengthy conversation of this have been reiterated to his caregiver. The patient is being discharged home to the care of his caregiver. He will followup with his PCP in 7 days and urology within 2 weeks. His activity level is to be stand and to pivot to a wheelchair only. A prescription for wheelchair has been provided. Diet is as prior to admission. He is to return to the emergency room (ER) if his symptoms worsen. MEDICATIONS AT THE TIME OF DISCHARGE: - ferrous sulfate 324 mg daily - magnesium nitrate 150 mL as needed if no bowel movement by noon - prednisone 10 mg daily for 3 days - Extra Strength Tylenol 1 gram twice a day - Norvasc 5 mg daily - aspirin 325 mg daily - Alphagan one drop right eye daily - Fibercon 625 mg twice a day - docusate 100 mg twice a day - dorzolamide one drop in the right eye daily - finasteride 5 mg daily - lactulose 30 mL daily - lisinopril 20 mg daily - Lovastatin 20 mg daily - olanzapine 15 mg daily - pilocarpine 1% drop right eye daily - Flomax 0.4 mg daily - timolol one drop right eye daily Greater than 30 minutes spent organizing disposition.
== END 2016-10-11 14:41 | disposition home or self-care (01) | DRG 193 ==
LOC: M ED 09:21 → M ED INP 12:39 → M MSPAV 14:33
PROVIDERS: ADMIT Hospitalist; ATTEND Internal Medicine
DX: J10.1 Influenza due to other identified influenza virus with other respiratory manifestations (principal); J96.01 Acute respiratory failure with hypoxia; N17.9 Acute kidney failure, unspecified; D61.818 Other pancytopenia; N39.0 Urinary tract infection, site not specified; K56.7 Ileus, unspecified; E87.0 Hyperosmolality and hypernatremia; J44.1 Chronic obstructive pulmonary disease with (acute) exacerbation; F79 Unspecified intellectual disabilities; F99 Mental disorder, not otherwise specified; R31.9 Hematuria, unspecified; J39.8 Other specified diseases of upper respiratory tract; K59.09 Other constipation; I12.9 Hypertensive chronic kidney disease with stage 1 through stage 4 chronic kidney disease, or unspecified chronic kidney disease; N18.3 Chronic kidney disease, stage 3 (moderate); E78.5 Hyperlipidemia, unspecified; E11.9 Type 2 diabetes mellitus without complications; N40.0 Benign prostatic hyperplasia without lower urinary tract symptoms; N13.9 Obstructive and reflux uropathy, unspecified; K62.3 Rectal prolapse; H40.9 Unspecified glaucoma; H54.0 Blindness, both eyes; Z79.899 Other long term (current) drug therapy; Z87.891 Personal history of nicotine dependence

== ENCOUNTER 2017-01-20 14:53 | Inpatient (IN) | payer MEDICARE, MEDICAID ==
[~2017-01-20] VITALS: Ht 157.5 cm; Wt 76.3 kg
[~2017-01-20 14:53] MED LIST changes: +AMLO5TAB2 PO; +ASPI325T PO; +AZIT-12 PO; +BRIM2OPD OU; +CITR1SOL PO; +DORZ2OPD OD; +FERR32TA PO; +FIBE625T PO; +FINA5TAB2 PO; +FLOM5CAP PO; +FURO40TA2 PO; +LACT10SO29 PO; +LACT20EL PO; +LISI-538 PO; +OLAN15TA PO; +PILO1OPD OU; +PRED10TA2 PO; +STOO100C PO; +TIMO0.5S29 OU; +TYLE500T78 PO
[2017-01-20] MEDS ORDERED: methylPREDNISolone INJ 125 MG/2 ML VIAL (J2930) IV ONE (15:15)
[2017-01-20] MEDS ORDERED: UNABLE TO VERIFY (15:19)
[2017-01-20] MEDS: IPRATROPIUM 0.5MG/ALBUTEROL 2.5MG INH SOL UD 3ML (DUONEB)(J7620) NEB PRN ×3 (15:34→16:25)
[2017-01-20 15:35] LABS: ABG BASE EXCESS -0.1 (-2.0-2.0); ABG HCO3 25.3 MEQ/L (22.0-26.0); ABG PARTIAL PRESSURE CO2 44.5 mmHg (35.0-45.0); ABG PARTIAL PRESSURE O2 69.5 mmHg (75.0-100.0); ABG STANDARD HCO3 24.3 MEQ/L (22.0-26.0); ABG TOTAL CO2 26.6 MEQ/L (23.0-31.0); ABG pH (ARTERIAL) 7.372 UNITS (7.350-7.450)
[2017-01-20 15:39] LABS: BASO % 0.3 % (0.0-1.0); EOS % 0.7 % (0.0-3.0); LARGE UNSTAINED CELL # 0.1 K/mm3 (0.0-0.4); LARGE UNSTAINED CELL % 1.4 % (0.0-4.0); LYMPH # 0.9 K/mm3 (1.5-4.5); LYMPH % 11.8 % (24.0-44.0); MEAN CORPUSCULAR HEMOGLOBIN 30.1 pg (27.0-33.0); MEAN CORPUSCULAR HGB CONC 32.7 g/dl (32.0-36.5); MEAN CORPUSCULAR VOLUME 92.1 fl (80.0-96.0); MONO # 0.4 K/mm3 (0.0-0.8); NEUTROPHILS # 5.7 K/mm3 (1.8-7.7); NEUTROPHILS % 79.8 % (36.0-66.0); PLATELET COUNT, AUTOMATED 168 k/mm3 (150-450); RED CELL DISTRIBUTION WIDTH 12.9 % (11.5-14.5); WHITE BLOOD COUNT 7.2 K/mm3 (4.0-10.0)
--- NOTE | 2017-01-20 15:53 | REP ---
Portable chest, single AP view, the patient upright, 03:34 p.m., 01/20/2017. Comparisons are the AP supine chest 10/05/2016, APC sitting chest of 09/28/[address] of 09/28/2016. There is cardiomegaly, unchanged. There is focal increased parenchymal density in the right cardiophrenic angle as an interval change. This is a likely an acute infiltrate. There is diffuse interstitial coarsening, unchanged. Signed by Lane Jaimes MD 01/20/2017 03:45 P
[2017-01-20 15:57] LABS: ANION GAP 10 MEQ/L (8-16); BLOOD UREA NITROGEN 67 MG/DL (7-18); CALCIUM LEVEL 9.2 MG/DL (8.8-10.2); CARBON DIOXIDE LEVEL 27 MEQ/L (21-32); CHLORIDE LEVEL 105 MEQ/L (98-107); CREATININE FOR GFR 2.45 MG/DL (0.70-1.30); GLOMERULAR FILTRATION RATE 27.1 (>35); GLUCOSE, FASTING 179 MG/DL (83-110); POTASSIUM SERUM 3.4 MEQ/L (3.5-5.1); SODIUM LEVEL 142 MEQ/L (136-145)
[2017-01-20] MEDS ORDERED: AZITHROMYCIN INJ 500 MG, VIAL MATE ADAPTER 1 EACH in D5W 250 ML IV ONE (16:15)
[2017-01-20] MEDS ORDERED: NS 500 ML IV ONE (16:15)
[2017-01-20] MEDS ORDERED: cefTRIAXone SOD 2 GM in D5W MINI-BAG PLUS 50 ML IV ONE (16:30)
[2017-01-20] MEDS ORDERED: FERR325T16 PO (17:01)
[2017-01-20] MEDS ORDERED: PATIENT COMMENT (17:03)
[2017-01-20] MEDS ORDERED: CITR1SOL PO (17:07)
[2017-01-20] MEDS ORDERED: FURO40TA2 PO (17:54)
[2017-01-20] MEDS ORDERED: OYSCTAB PO (17:54)
[2017-01-20] MEDS ORDERED: FIBE625T22 PO (17:58)
[2017-01-20] MEDS ORDERED: COLA100C5 PO (17:58)
[2017-01-20] MEDS ORDERED: TYLE500T78 PO (17:58)
[2017-01-20] MEDS ORDERED: ACETAMINOPHEN 500 MG TAB PO PRN (18:30)
[2017-01-20] MEDS ORDERED: IPRATROPIUM 0.5MG/ALBUTEROL 2.5MG INH SOL UD 3ML (DUONEB)(J7620) NEB PRN (18:30)
[2017-01-20 20:33] VITALS: BP 143/68
[2017-01-20] MEDS: HumaLOG INSULIN (NovoLOG) PER UNIT SC SCH (21:00)
[2017-01-20] MEDS ORDERED: GLUCAGON FOR INJ 1 MG VIAL (J1610) SC PRN (21:30)
[2017-01-20] MEDS ORDERED: DEXTROSE 50% 50 ML SYRINGE IV PRN (21:30)
[2017-01-20] MEDS: OLANZapine 5 MG TAB PO SCH (22:26)
[2017-01-20] MEDS: KCL 40MEQ in NS 1000ML 1,000 ML IV SCH (22:26)
[2017-01-20] MEDS: DOCUSATE SODIUM 100 MG CAP PO SCH (22:26)
[2017-01-20] MEDS: SIMVASTATIN 20 MG TAB PO SCH (22:26)
[2017-01-20] MEDS: IPRATROPIUM 0.5MG/ALBUTEROL 2.5MG INH SOL UD 3ML (DUONEB)(J7620) NEB SCH (23:33)
[2017-01-21] VITALS: BP 122/67
[2017-01-21] MEDS: IPRATROPIUM 0.5MG/ALBUTEROL 2.5MG INH SOL UD 3ML (DUONEB)(J7620) NEB SCH ×4 (01:51→19:24)
[2017-01-21] MEDS: methylPREDNISolone INJ 125 MG/2 ML VIAL (J2930) IV SCH ×2 (03:59→16:21)
[2017-01-21 04:00] VITALS: BP 139/66
--- NOTE | 2017-01-21 04:21 | HPE ---
DATE OF ADMISSION: 01/20/2017 PRIMARY CARE PROVIDER: None documented. CHIEF COMPLAINT: Dyspnea. HISTORY OF PRESENT ILLNESS: Patient is an 81-year-old male with a history of mental retardation (MR) and some psychiatric of unknown etiology, as well as chronic obstructive pulmonary disease (COPD), who developed respiratory distress at home prior to presentation. Four hours later he had altered mental status and fever. Emergency medical services (EMS) was called. When they arrived, his oxygen saturation had dropped to the 70s, so they brought him to the hospital. In the emergency department (ED), he was treated with nebulizer, antibiotics, as well as Solu-Medrol with significant improvement. He was kept for further evaluation. REVIEW OF SYSTEMS: Unable to obtain due to patient's mental condition. PAST MEDICAL HISTORY: From the chart includes also: 1. BPH. 2. Anemia of chronic disease. 3. Gastrointestinal (GI) bleed. 4. Chronic constipation. 5. Type 2 diabetes mellitus. 6. Blindness secondary to glaucoma. 7. Hypertension. 8. Hyperlipidemia. 9. Chronic kidney disease (CKD) stage III. 10. Osteoporosis. 11. Hip fracture. PAST SURGICAL HISTORY: Includes: 1. Right repair of hip fracture. 2. Cataract surgery, evident on the right. 3. Appendectomy. 4. Hemorrhoidectomy. 5. TURP procedure. FAMILY HISTORY: Not documented, unable to obtain from patient. SOCIAL HISTORY: Patient denies smoking, alcohol abuse and recreational drug use. He lives with his caregiver at home. ALLERGIES TO MEDICATIONS: None. LIST OF MEDICATIONS: Includes: - Lasix 40 mg daily - lisinopril 20 mg once a day - magnesium citrate 300 mg solution as needed for constipation - Tylenol 500 mg 1000 tablet every 4 hours as needed for pain - amlodipine 5 mg daily - aspirin 325 mg once a day - docusate sodium 100 mg capsule 200 mg by mouth twice a day - dorzolamide eye drops - ferrous gluconate 324 mg daily - finasteride 5 mg once a day - lactulose solution 30 mL by mouth daily - lovastatin 20 mg at night - olanzapine 15 mg by mouth nightly - 500 mg daily - pilocarpine 1% solution to both eyes daily - tamsulosin 0.4 mg once a day - timolol 0.5% solution drops daily - Alphagan 0.15% solution to both eyes daily PHYSICAL EXAMINATION: VITAL SIGNS: Blood pressure 127/60, pulse 96, respiratory rate 18, oxygen saturation 95% on 4 liters, temperature 98.6 degrees Fahrenheit. GENERAL: Patient is awake, oriented to self, but not place and time and circumstance. HEENT: Pupils are unequal, responds to light. Anicteric sclerae. Mucous membranes are moist. CARDIOVASCULAR SYSTEM: S1, S2 present. Rate is regular. RESPIRATORY SYSTEM: Bilateral rales both lungs at bases. GASTROINTESTINAL: Abdomen is soft, nontender, nondistended. Bowel sounds are normal. MUSCULOSKELETAL SYSTEM: No edema, cyanosis or calf tenderness. SKIN: Warm, dry, acyanotic without visible rash. NEUROLOGY: Deferred. LABORATORIES: Hematology: White blood cell count 7.2 thousand, hemoglobin 8.3, hematocrit 25.3, platelets 168. Chemistry: Sodium 142, potassium 3.4, chloride 105, bicarbonate 27, BUN 67, creatinine 3.45, baseline creatinine is 1.16, GFR 27, fasting glucose 179, lactic acid 1.2. Troponin I less than 0.02. BNP 332. TSH 0.678. ABG pH 7.37, pCO2 44.5, pO2 70, bicarbonate 25.3, oxygen saturation 92%, base excess less than 0.1. IMAGING STUDIES: Chest x-ray cardiomegaly, which is unchanged. There is focal increased parenchymal density in the right cardiophrenic angle. This is likely an acute infiltrate. IMPRESSION: Includes: 1. Acute hypoxic respiratory failure. 2. Pneumonia, likely healthcare-acquired. 3. Chronic obstructive pulmonary disease (COPD) exacerbation. 4. Hypokalemia, mild. 5. Acute renal failure with chronic kidney disease (CKD) stage III. 6. Anemia of chronic disease. 7. Insulin-dependent diabetes. 8. Hypertension. 9. Hyperlipidemia. 10. History of mental retardation (MR) and psychiatric. PLAN: Patient is admitted to the hospital progressive care unit (PCU). Continued treatment with antibiotics, Solu-Medrol, nebulizer, oxygen, gentle hydration. Resumed all needed home medications except for Lasix and lisinopril held due to elevation in creatinine level. Potassium has been repleted. Followup labs also in the morning. Also followup complete blood count (CBC) and transfuse as necessary.
[2017-01-21 05:00] LABS: BASO % 0.1 % (0.0-1.0); EOS % 0.5 % (0.0-3.0); LARGE UNSTAINED CELL # 0.1 K/mm3 (0.0-0.4); LARGE UNSTAINED CELL % 1.1 % (0.0-4.0); LYMPH # 0.6 K/mm3 (1.5-4.5); LYMPH % 12.2 % (24.0-44.0); MEAN CORPUSCULAR HEMOGLOBIN 31.3 pg (27.0-33.0); MEAN CORPUSCULAR HGB CONC 33.7 g/dl (32.0-36.5); MEAN CORPUSCULAR VOLUME 92.8 fl (80.0-96.0); MONO # 0.2 K/mm3 (0.0-0.8); MONO % 3.5 % (0.0-5.0); NEUTROPHILS # 4.3 K/mm3 (1.8-7.7); NEUTROPHILS % 82.6 % (36.0-66.0); PLATELET COUNT, AUTOMATED 177 k/mm3 (150-450); RED CELL DISTRIBUTION WIDTH 12.5 % (11.5-14.5); WHITE BLOOD COUNT 5.3 K/mm3 (4.0-10.0)
[2017-01-21 05:21] LABS: ALBUMIN 2.5 GM/DL (3.2-5.2); ALBUMIN/GLOBULIN RATIO 0.66 (1.00-1.93); BILIRUBIN,TOTAL 0.2 MG/DL (0.2-1.0); CALCIUM LEVEL 8.3 MG/DL (8.8-10.2); CREATININE FOR GFR 1.82 MG/DL (0.70-1.30); GLOMERULAR FILTRATION RATE 38.2 (>35); MAGNESIUM LEVEL 2.4 MG/DL (1.8-2.4); POTASSIUM SERUM 4.1 MEQ/L (3.5-5.1); TOTAL PROTEIN 6.3 GM/DL (6.4-8.2)
--- NOTE | 2017-01-21 07:23 | ECGEPIP ---
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
[2017-01-21] MEDS: HumaLOG INSULIN (NovoLOG) PER UNIT SC SCH ×4 (07:44→21:26)
[2017-01-21 08:00] VITALS: BP 123/58
[2017-01-21] MEDS: KCL 40MEQ in NS 1000ML 1,000 ML IV SCH (09:45)
[2017-01-21] MEDS: DORZOLAMIDE 2% OPHTH SOLN 10 ML BTL OD SCH (09:45)
[2017-01-21] MEDS: FERROUS GLUCONATE 324 MG TAB PO SCH (09:47)
[2017-01-21] MEDS: DOCUSATE SODIUM 100 MG CAP PO SCH ×2 (09:48→21:26)
[2017-01-21] MEDS: TAMSULOSIN 0.4 MG CAP PO SCH (09:48)
[2017-01-21] MEDS: TIMOLOL MALEATE 0.5% OPHTH SOLN 5 ML OU SCH (09:49)
[2017-01-21] MEDS: LACTULOSE 20 GM/30 ML SYRUP UD PO SCH (09:50)
[2017-01-21] MEDS: FINASTERIDE 5 MG TAB PO SCH (09:52)
[2017-01-21] MEDS: amLODIPine 5 MG TAB PO SCH (09:53)
[2017-01-21] MEDS: ASPIRIN 325 MG TAB PO SCH (09:54)
[2017-01-21] MEDS: PILOCARPINE 1% OPHTH SOLN 15 ML OU SCH (09:54)
[2017-01-21] MEDS ORDERED: NS 1,000 ML IV SCH (11:30)
--- NOTE | 2017-01-21 11:37 | IPNPDOC ---
Subjective Date Seen The patient was seen on 01/21/17. Subjective Chief Complaint/HPI Patient seen and examined at the bedside, history is limited given the patient' s baseline clinical mentation. Objective Physical Examination General Exam: Positive: No Acute Distress ENT Exam: Positive: Atraumatic, Mucous membr. moist/pink Neck Exam: Negative: JVD Chest Exam: Positive: Wheezing, Diminished, Negative: Clear to auscultation Heart Exam: Positive: Rate Normal, Normal S1, Normal S2 Abdomen Exam: Positive: Soft, Negative: Tenderness Extremity Exam: Negative: Tenderness, Swelling Assessment /Plan Plan/VTE VTE Prophylaxis Ordered?: Yes Plan Acute on Chronic Hypoxic Respiratory Failure 2/2 COPD Decompensation, CAP CXR notable for right sided Infiltrate ABG notable for hypoxemia, no hypercarbia noted Blood cultures, sputum culture ordered Cont Rocephin and Azithromycin IV Solumedrol Cont Nebs We will cont to monitor the patient's respiratory status and down titrate supplemental oxygen as tolerated Acute Kidney Injury Superimposed on Chronic Kidney Disease Serum Creatinine improving 2.45-->1.82 (Baseline 1.3-1.5) Gentle IVF Hydration Hold Nephrotoxins We will cont to monitor BMP Hypertension, stable Lisinopril held 2/2 above Dyslipidemia Cont Statin Diabetes mellitus Continue insulin sliding scale Anemia of chronic disease Hemoglobin stable, no indication for transfusion at this time BPH Continue Flomax, Proscar Psychiatric disorder Continue olanzapine History of mental retardation Prophylaxis Heparin SC VS, I&O, 24H, Fishbone Vital Signs/I&O Vital Signs Date Time Temp Pulse Resp B/P (MAP) Pulse Ox O2 Delivery O2 Flow Rate FiO2 01/21/17 09:53 96 123/58 01/21/17 08:00 97.7 19 94 Nasal Cannula 4.0 I&O- Last 24 Hours up to 6 AM 01/21/17 06:00 Intake Total 1390 ml Output Total 325 ml Balance 1065 ml Laboratory Data 24H LABS Laboratory Tests 2 01/20/17 15:12: White Blood Count 7.2, Red Blood Count 2.74L, Hemoglobin 8.3L, Hematocrit 25.3L , Mean Corpuscular Volume 92.1, Mean Corpuscular Hemoglobin 30.1, Mean Corpuscular Hemoglobin Concent 32.7, Red Cell Distribution Width 12.9, Platelet Count 168, Neutrophils (%) (Auto) 79.8H, Lymphocytes (%) (Auto) 11.8L, Monocytes (%) (Auto) 6.0H, Eosinophils (%) (Auto) 0.7, Basophils (%) (Auto) 0.3 , Neutrophils # (Auto) 5.7, Lymphocytes # (Auto) 0.9L, Monocytes # (Auto) 0.4, Eosinophils # (Auto) 0.0, Basophils # (Auto) 0.0, Large Unclassified Cells % 1.4 , Large Unclassified Cells # 0.1, Anion Gap 10, Glomerular Filtration Rate 27.1L , Lactic Acid Level 1.2, Blood Urea Nitrogen 67H, Creatinine 2.45H, Sodium Level 142, Potassium Level 3.4L, Chloride Level 105, Carbon Dioxide Level 27, Calcium Level 9.2, Total Creatine Kinase 39, Creatine Kinase MB 1.0, Creatine Kinase MB Relative Index 2.56, Troponin I < 0.02, B-Type Natriuretic Peptide 332H, Thyroid Stimulating Hormone (TSH) 0.678 01/20/17 15:25: Blood Gas Bicarbonate Standard 24.3, Arterial Blood pH 7.372, Arterial Blood Partial Pressure CO2 44.5, Arterial Blood Partial Pressure O2 69.5L, Arterial Blood Total CO2 26.6, Arterial Blood HCO3 25.3, Arterial Blood Base Excess -0.1 , Arterial Blood Oxygen Saturation 91.6L 01/20/17 22:35: Bedside Glucose (Misc Panel) 226H 01/21/17 04:44: White Blood Count 5.3, Red Blood Count 2.65L, Hemoglobin 8.3L, Hematocrit 24.5L , Mean Corpuscular Volume 92.8, Mean Corpuscular Hemoglobin 31.3, Mean Corpuscular Hemoglobin Concent 33.7, Red Cell Distribution Width 12.5, Platelet Count 177, Neutrophils (%) (Auto) 82.6H, Lymphocytes (%) (Auto) 12.2L, Monocytes (%) (Auto) 3.5, Eosinophils (%) (Auto) 0.5, Basophils (%) (Auto) 0.1, Neutrophils # (Auto) 4.3, Lymphocytes # (Auto) 0.6L, Monocytes # (Auto) 0.2, Eosinophils # (Auto) 0.0, Basophils # (Auto) 0.0, Large Unclassified Cells % 1.1 , Large Unclassified Cells # 0.1, Anion Gap 8, Glomerular Filtration Rate 38.2, Blood Urea Nitrogen 61H, Creatinine 1.82H, Sodium Level 146H, Potassium Level 4.1#, Chloride Level 112H, Carbon Dioxide Level 26, Calcium Level 8.3L, Aspartate Amino Transf (AST/SGOT) 6L, Alanine Aminotransferase (ALT/SGPT) 12, Alkaline Phosphatase 63, Total Bilirubin 0.2, Total Protein 6.3L, Albumin 2.5L, Magnesium Level 2.4, Albumin/Globulin Ratio 0.66L CBC/BMP Laboratory Tests 01/20/17 15:12 Red Blood Count 2.74 L, Mean Corpuscular Volume 92.1, Mean Corpuscular Hemoglobin 30.1, Mean Corpuscular Hemoglobin Concent 32.7, Red Cell Distribution Width 12.9, Neutrophils (%) (Auto) 79.8 H, Lymphocytes (%) (Auto) 11.8 L, Monocytes (%) (Auto) 6.0 H, Eosinophils (%) (Auto) 0.7, Basophils (%) ( Auto) 0.3, Neutrophils # (Auto) 5.7, Lymphocytes # (Auto) 0.9 L, Monocytes # ( Auto) 0.4, Eosinophils # (Auto) 0.0, Basophils # (Auto) 0.0, Calcium Level 9.2, Total Creatine Kinase 39 01/21/17 04:44 Red Blood Count 2.65 L, Mean Corpuscular Volume 92.8, Mean Corpuscular Hemoglobin 31.3, Mean Corpuscular Hemoglobin Concent 33.7, Red Cell Distribution Width 12.5, Neutrophils (%) (Auto) 82.6 H, Lymphocytes (%) (Auto) 12.2 L, Monocytes (%) (Auto) 3.5, Eosinophils (%) (Auto) 0.5, Basophils (%) ( Auto) 0.1, Neutrophils # (Auto) 4.3, Lymphocytes # (Auto) 0.6 L, Monocytes # ( Auto) 0.2, Eosinophils # (Auto) 0.0, Basophils # (Auto) 0.0, Calcium Level 8.3 L , Aspartate Amino Transf (AST/SGOT) 6 L, Alanine Aminotransferase (ALT/SGPT) 12 , Alkaline Phosphatase 63, Total Bilirubin 0.2, Total Protein 6.3 L, Albumin 2.5 L Microbiology Microbiology 01/20/17 Blood Culture, Received Pending 01/20/17 Blood Culture, Received Pending SANAM MALDONADO MD Jan 21, 2017 11:37
[2017-01-21 12:00] VITALS: BP 132/79
[2017-01-21] MEDS: OYSTER SHELL CALCIUM 500 MG TAB PO SCH (12:35)
[2017-01-21] MEDS: BRIMONIDINE 0.15% OPHTH SOLN 5 ML OD SCH (14:45)
[2017-01-21] MEDS: HEPARIN SOD (PORCINE) 5000 UNITS/ML VIAL SQ SCH ×2 (14:45→21:25)
[2017-01-21 16:00] VITALS: BP 113/53
[2017-01-21] MEDS: cefTRIAXone SOD 2 GM in D5W MINI-BAG PLUS 50 ML IV SCH (16:22)
[2017-01-21] MEDS: AZITHROMYCIN INJ 500 MG, VIAL MATE ADAPTER 1 EACH in D5W 250 ML IV SCH (17:02)
[2017-01-21 20:00] VITALS: BP 112/54
[2017-01-21] MEDS: OLANZapine 5 MG TAB PO SCH (21:26)
[2017-01-21] MEDS: SIMVASTATIN 20 MG TAB PO SCH (21:26)
[2017-01-22] VITALS (7 sets, daily range): BP systolic 123–160; BP diastolic 58–78
[2017-01-22] MEDS: IPRATROPIUM 0.5MG/ALBUTEROL 2.5MG INH SOL UD 3ML (DUONEB)(J7620) NEB SCH ×4 (02:00→19:18)
[2017-01-22] MEDS: methylPREDNISolone INJ 125 MG/2 ML VIAL (J2930) IV SCH ×2 (04:59→16:18)
[2017-01-22] MEDS: HEPARIN SOD (PORCINE) 5000 UNITS/ML VIAL SQ SCH ×3 (05:02→21:06)
[2017-01-22 05:52] LABS: BASO % 0.1 % (0.0-1.0); EOS % 0.2 % (0.0-3.0); LARGE UNSTAINED CELL # 0.1 K/mm3 (0.0-0.4); LARGE UNSTAINED CELL % 1.6 % (0.0-4.0); LYMPH # 0.8 K/mm3 (1.5-4.5); LYMPH % 10.8 % (24.0-44.0); MEAN CORPUSCULAR HEMOGLOBIN 30.8 pg (27.0-33.0); MEAN CORPUSCULAR HGB CONC 32.7 g/dl (32.0-36.5); MEAN CORPUSCULAR VOLUME 94.2 fl (80.0-96.0); MONO # 0.3 K/mm3 (0.0-0.8); MONO % 5.1 % (0.0-5.0); NEUTROPHILS # 5.2 K/mm3 (1.8-7.7); NEUTROPHILS % 82.2 % (36.0-66.0); PLATELET COUNT, AUTOMATED 183 k/mm3 (150-450); WHITE BLOOD COUNT 6.3 K/mm3 (4.0-10.0)
[2017-01-22 06:23] LABS: ALBUMIN 2.5 GM/DL (3.2-5.2); ALBUMIN/GLOBULIN RATIO 0.66 (1.00-1.93); BILIRUBIN,TOTAL 0.1 MG/DL (0.2-1.0); CALCIUM LEVEL 8.3 MG/DL (8.8-10.2); CREATININE FOR GFR 1.61 MG/DL (0.70-1.30); POTASSIUM SERUM 4.2 MEQ/L (3.5-5.1); TOTAL PROTEIN 6.3 GM/DL (6.4-8.2)
[2017-01-22] MEDS ORDERED: D5W 500 ML IV SCH (07:30)
[2017-01-22] MEDS: HumaLOG INSULIN (NovoLOG) PER UNIT SC SCH ×4 (07:37→21:06)
[2017-01-22] MEDS: ASPIRIN 325 MG TAB PO SCH (09:39)
[2017-01-22] MEDS: DOCUSATE SODIUM 100 MG CAP PO SCH ×2 (09:39→21:05)
[2017-01-22] MEDS: OYSTER SHELL CALCIUM 500 MG TAB PO SCH (09:39)
[2017-01-22] MEDS: TAMSULOSIN 0.4 MG CAP PO SCH (09:40)
[2017-01-22] MEDS: DORZOLAMIDE 2% OPHTH SOLN 10 ML BTL OD SCH (09:40)
[2017-01-22] MEDS: PILOCARPINE 1% OPHTH SOLN 15 ML OU SCH (09:40)
[2017-01-22] MEDS: TIMOLOL MALEATE 0.5% OPHTH SOLN 5 ML OU SCH (09:40)
[2017-01-22] MEDS: amLODIPine 5 MG TAB PO SCH (09:40)
[2017-01-22] MEDS: FINASTERIDE 5 MG TAB PO SCH (09:40)
[2017-01-22] MEDS: BRIMONIDINE 0.15% OPHTH SOLN 5 ML OD SCH (09:40)
[2017-01-22] MEDS: FERROUS GLUCONATE 324 MG TAB PO SCH (09:40)
[2017-01-22] MEDS: LACTULOSE 20 GM/30 ML SYRUP UD PO SCH (09:40)
--- NOTE | 2017-01-22 10:50 | IPNPDOC ---
Subjective Date Seen The patient was seen on 01/22/17. Subjective Chief Complaint/HPI Patient seen and examined at the bedside. No acute overnight events noted from bedside nursing staff. Unable to obtain reliable review of systems due to patient's baseline clinical condition. Objective Physical Examination General Exam: Positive: No Acute Distress ENT Exam: Positive: Atraumatic, Mucous membr. moist/pink Neck Exam: Negative: JVD Chest Exam: Positive: Diminished, Other (improved aeration on auscultation), Negative: Clear to auscultation Heart Exam: Positive: Rate Normal, Normal S1, Normal S2 Abdomen Exam: Positive: Soft, Negative: Tenderness Extremity Exam: Negative: Tenderness, Swelling Assessment /Plan Plan/VTE VTE Prophylaxis Ordered?: Yes Plan Acute on Chronic Hypoxic Respiratory Failure 2/2 COPD Decompensation, CAP CXR notable for right sided Infiltrate ABG notable for hypoxemia, no hypercarbia noted Blood cultures, sputum culture unrevealing thus far Cont Rocephin and Azithromycin IV Solumedrol Cont Nebs We will cont to monitor the patient's respiratory status and down titrate supplemental oxygen as tolerated Acute Kidney Injury Superimposed on Chronic Kidney Disease Serum Creatinine improving 2.45-->1.82-->1.61 (Baseline 1.3-1.5) Gentle IVF Hydration Hold Nephrotoxins We will cont to monitor BMP Hypernatremia likely 2/2 IVF Hydration with NS IVF switched to D5W Encouraged bedside nursing staff to have patient drink water We will continue to monitor Anemia of chronic disease Hemoglobin down to 7.8 this morning--no overt or active source of bleeding noted , stool occult study ordered We will transfuse the patient 1 Unit Hypertension, stable Lisinopril held 2/2 above Dyslipidemia Cont Statin Diabetes mellitus Continue insulin sliding scale BPH Continue Flomax, Proscar Psychiatric disorder Continue olanzapine History of mental retardation Prophylaxis Heparin SC VS, I&O, 24H, Fishbone Vital Signs/I&O Vital Signs Date Time Temp Pulse Resp B/P (MAP) Pulse Ox O2 Delivery O2 Flow Rate FiO2 01/22/17 09:40 96 138/63 01/22/17 08:00 97.8 19 94 Nasal Cannula 3.0 I&O- Last 24 Hours up to 6 AM 01/22/17 05:59 Intake Total 3120 ml Output Total 1575 ml Balance 1545 ml Laboratory Data 24H LABS Laboratory Tests 2 01/21/17 11:56: Bedside Glucose (Misc Panel) 247H 01/21/17 16:48: Bedside Glucose (Misc Panel) 181H 01/21/17 21:11: Bedside Glucose (Misc Panel) 306H 01/22/17 04:53: White Blood Count 6.3, Red Blood Count 2.54L, Hemoglobin 7.8L, Hematocrit 24.0L , Mean Corpuscular Volume 94.2, Mean Corpuscular Hemoglobin 30.8, Mean Corpuscular Hemoglobin Concent 32.7, Red Cell Distribution Width 13.0, Platelet Count 183, Neutrophils (%) (Auto) 82.2H, Lymphocytes (%) (Auto) 10.8L, Monocytes (%) (Auto) 5.1H, Eosinophils (%) (Auto) 0.2, Basophils (%) (Auto) 0.1 , Neutrophils # (Auto) 5.2, Lymphocytes # (Auto) 0.8L, Monocytes # (Auto) 0.3, Eosinophils # (Auto) 0.0, Basophils # (Auto) 0.0, Large Unclassified Cells % 1.6 , Large Unclassified Cells # 0.1, Anion Gap 8, Glomerular Filtration Rate 44.0, Blood Urea Nitrogen 58H, Creatinine 1.61H, Sodium Level 149H, Potassium Level 4.2, Chloride Level 116H, Carbon Dioxide Level 25, Calcium Level 8.3L, Aspartate Amino Transf (AST/SGOT) 10L, Alanine Aminotransferase (ALT/SGPT) 16, Alkaline Phosphatase 61, Total Bilirubin 0.1L, Total Protein 6.3L, Albumin 2.5L , Albumin/Globulin Ratio 0.66L CBC/BMP Laboratory Tests 01/22/17 04:53 Red Blood Count 2.54 L, Mean Corpuscular Volume 94.2, Mean Corpuscular Hemoglobin 30.8, Mean Corpuscular Hemoglobin Concent 32.7, Red Cell Distribution Width 13.0, Neutrophils (%) (Auto) 82.2 H, Lymphocytes (%) (Auto) 10.8 L, Monocytes (%) (Auto) 5.1 H, Eosinophils (%) (Auto) 0.2, Basophils (%) ( Auto) 0.1, Neutrophils # (Auto) 5.2, Lymphocytes # (Auto) 0.8 L, Monocytes # ( Auto) 0.3, Eosinophils # (Auto) 0.0, Basophils # (Auto) 0.0, Calcium Level 8.3 L , Aspartate Amino Transf (AST/SGOT) 10 L, Alanine Aminotransferase (ALT/SGPT) 16 , Alkaline Phosphatase 61, Total Bilirubin 0.1 L, Total Protein 6.3 L, Albumin 2.5 L Microbiology Microbiology 01/20/17 Blood Culture - Preliminary, Resulted No growth after 24 hours . All specim... 01/20/17 Blood Culture - Preliminary, Resulted No growth after 24 hours . All specim... SANAM MALDONADO MD Jan 22, 2017 10:50
[2017-01-22] MEDS: cefTRIAXone SOD 2 GM in D5W MINI-BAG PLUS 50 ML IV SCH (16:18)
[2017-01-22] MEDS: AZITHROMYCIN INJ 500 MG, VIAL MATE ADAPTER 1 EACH in D5W 250 ML IV SCH (17:11)
[2017-01-22] MEDS: OLANZapine 5 MG TAB PO SCH (21:05)
[2017-01-22] MEDS: SIMVASTATIN 20 MG TAB PO SCH (21:05)
[2017-01-23] MEDS: IPRATROPIUM 0.5MG/ALBUTEROL 2.5MG INH SOL UD 3ML (DUONEB)(J7620) NEB SCH ×4 (01:06→19:27)
[2017-01-23] MEDS: methylPREDNISolone INJ 125 MG/2 ML VIAL (J2930) IV SCH (03:26)
[2017-01-23] MEDS: HEPARIN SOD (PORCINE) 5000 UNITS/ML VIAL SQ SCH ×3 (05:15→21:31)
[2017-01-23 06:00] VITALS: BP 159/74
[2017-01-23 06:06] LABS: BASO % 0.1 % (0.0-1.0); EOS % 0.1 % (0.0-3.0); LARGE UNSTAINED CELL # 0.1 K/mm3 (0.0-0.4); LARGE UNSTAINED CELL % 0.9 % (0.0-4.0); LYMPH # 0.6 K/mm3 (1.5-4.5); LYMPH % 7.7 % (24.0-44.0); MEAN CORPUSCULAR HEMOGLOBIN 30.6 pg (27.0-33.0); MEAN CORPUSCULAR HGB CONC 32.6 g/dl (32.0-36.5); MEAN CORPUSCULAR VOLUME 93.9 fl (80.0-96.0); MONO # 0.2 K/mm3 (0.0-0.8); MONO % 3.4 % (0.0-5.0); NEUTROPHILS % 87.8 % (36.0-66.0); PLATELET COUNT, AUTOMATED 184 k/mm3 (150-450); RED CELL DISTRIBUTION WIDTH 13.4 % (11.5-14.5); WHITE BLOOD COUNT 6.8 K/mm3 (4.0-10.0)
[2017-01-23 06:30] LABS: ALBUMIN 2.5 GM/DL (3.2-5.2); ALBUMIN/GLOBULIN RATIO 0.64 (1.00-1.93); BILIRUBIN,TOTAL 0.2 MG/DL (0.2-1.0); CREATININE FOR GFR 1.28 MG/DL (0.70-1.30); GLOMERULAR FILTRATION RATE 57.3 (>35); POTASSIUM SERUM 4.3 MEQ/L (3.5-5.1); TOTAL PROTEIN 6.4 GM/DL (6.4-8.2)
[2017-01-23] MEDS ORDERED: DEXTROSE IV SCH (07:30)
[2017-01-23] MEDS: HumaLOG INSULIN (NovoLOG) PER UNIT SC SCH ×4 (07:38→21:00)
--- NOTE | 2017-01-23 09:01 | IPNPDOC ---
Subjective Date Seen The patient was seen on 01/23/17. Subjective Chief Complaint/HPI No acute overnight events noted as per bedside nursing staff. Patient back to baseline mentation. Objective Physical Examination General Exam: Positive: No Acute Distress ENT Exam: Positive: Atraumatic, Mucous membr. moist/pink Neck Exam: Negative: JVD Chest Exam: Positive: Clear to auscultation, Diminished Heart Exam: Positive: Rate Normal, Normal S1, Normal S2 Abdomen Exam: Positive: Soft, Negative: Tenderness Extremity Exam: Negative: Tenderness, Swelling Assessment /Plan Plan/VTE VTE Prophylaxis Ordered?: Yes Plan Acute on Chronic Hypoxic Respiratory Failure 2/2 COPD Decompensation, CAP CXR notable for right sided Infiltrate ABG notable for hypoxemia, no hypercarbia noted Blood cultures, sputum culture unrevealing thus far IV Abx transitioned to PO Levaquin IV Solumedrol transitioned to PO Prednisone Cont Nebs We will cont to monitor the patient's respiratory status and down titrate supplemental oxygen as tolerated Acute Kidney Injury Superimposed on Chronic Kidney Disease, resolved Serum Creatinine improving 2.45-->1.82-->1.61-->1.28 (Baseline 1.3-1.5) Gentle IVF Hydration We will renally dose meds We will cont to monitor BMP Hypernatremia likely 2/2 IVF Hydration with NS Serum Sodium downtrending to 147 this AM Cont D5W at a gentle rate Encouraged bedside nursing staff to have patient drink water We will continue to monitor Anemia of chronic disease Hemoglobin stable at 9.3 this am s/p 1 Unit of transfusion on 01/22 No active source of bleeding noted Hypertension, stable Resume Lisinopril Dyslipidemia Cont Statin Diabetes mellitus Continue insulin sliding scale BPH Continue Flomax, Proscar Psychiatric disorder Continue olanzapine History of mental retardation Prophylaxis Heparin SC Dispo-Patient transitioned to PO Steroids, Antibiotics--PT eval ordered. I did speak with the patient's HCP/caregiver who was actually just discharged from the hospital yesterday, she is aware of the patient's clinical condition. I have made her aware that we anticipate a D/C home within the next 24-48 hrs. VS, I&O, 24H, Fishbone Vital Signs/I&O Vital Signs Date Time Temp Pulse Resp B/P (MAP) Pulse Ox O2 Delivery O2 Flow Rate FiO2 01/23/17 06:00 97.3 75 18 159/74 (102) 94 Nasal Cannula 3.0 I&O- Last 24 Hours up to 6 AM 01/23/17 06:00 Intake Total 2928 ml Output Total 1675 ml Balance 1253 ml Laboratory Data 24H LABS Laboratory Tests 2 01/22/17 11:47: Bedside Glucose (Misc Panel) 236H 01/22/17 16:31: Bedside Glucose (Misc Panel) 174H 01/22/17 20:54: Bedside Glucose (Misc Panel) 266H 01/23/17 05:36: White Blood Count 6.8, Red Blood Count 3.04L, Hemoglobin 9.3L, Hematocrit 28.6L , Mean Corpuscular Volume 93.9, Mean Corpuscular Hemoglobin 30.6, Mean Corpuscular Hemoglobin Concent 32.6, Red Cell Distribution Width 13.4, Platelet Count 184, Neutrophils (%) (Auto) 87.8H, Lymphocytes (%) (Auto) 7.7L, Monocytes (%) (Auto) 3.4, Eosinophils (%) (Auto) 0.1, Basophils (%) (Auto) 0.1, Neutrophils # (Auto) 6.0, Lymphocytes # (Auto) 0.6L, Monocytes # (Auto) 0.2, Eosinophils # (Auto) 0.0, Basophils # (Auto) 0.0, Large Unclassified Cells % 0.9 , Large Unclassified Cells # 0.1, Anion Gap 4L, Glomerular Filtration Rate 57.3 , Blood Urea Nitrogen 48H, Creatinine 1.28, Sodium Level 147H, Potassium Level 4.3, Chloride Level 114H, Carbon Dioxide Level 29, Calcium Level 9.0, Aspartate Amino Transf (AST/SGOT) 8L, Alanine Aminotransferase (ALT/SGPT) 20, Alkaline Phosphatase 55, Total Bilirubin 0.2#, Total Protein 6.4, Albumin 2.5L, Albumin/ Globulin Ratio 0.64L CBC/BMP Laboratory Tests 01/23/17 05:36 Red Blood Count 3.04 L, Mean Corpuscular Volume 93.9, Mean Corpuscular Hemoglobin 30.6, Mean Corpuscular Hemoglobin Concent 32.6, Red Cell Distribution Width 13.4, Neutrophils (%) (Auto) 87.8 H, Lymphocytes (%) (Auto) 7.7 L, Monocytes (%) (Auto) 3.4, Eosinophils (%) (Auto) 0.1, Basophils (%) (Auto ) 0.1, Neutrophils # (Auto) 6.0, Lymphocytes # (Auto) 0.6 L, Monocytes # (Auto) 0.2, Eosinophils # (Auto) 0.0, Basophils # (Auto) 0.0, Calcium Level 9.0, Aspartate Amino Transf (AST/SGOT) 8 L, Alanine Aminotransferase (ALT/SGPT) 20, Alkaline Phosphatase 55, Total Bilirubin 0.2 #, Total Protein 6.4, Albumin 2.5 L Microbiology Microbiology 01/20/17 Blood Culture - Preliminary, Resulted No Growth after 48 hours. All Specime... 01/20/17 Blood Culture - Preliminary, Resulted No Growth after 48 hours. All Specime... 01/23/17 Gram Stain, Received Pending 01/23/17 Sputum Culture, Received Pending SANAM MALDONADO MD Jan 23, 2017 09:01
[2017-01-23] MEDS: LACTULOSE 20 GM/30 ML SYRUP UD PO SCH (09:11)
[2017-01-23] MEDS: DOCUSATE SODIUM 100 MG CAP PO SCH ×2 (09:12→21:31)
[2017-01-23] MEDS: FERROUS GLUCONATE 324 MG TAB PO SCH (09:12)
[2017-01-23] MEDS: TAMSULOSIN 0.4 MG CAP PO SCH (09:12)
[2017-01-23] MEDS: ASPIRIN 325 MG TAB PO SCH (09:12)
[2017-01-23] MEDS: FINASTERIDE 5 MG TAB PO SCH (09:12)
[2017-01-23] MEDS: amLODIPine 5 MG TAB PO SCH (09:13)
[2017-01-23] MEDS: BRIMONIDINE 0.15% OPHTH SOLN 5 ML OD SCH (09:13)
[2017-01-23] MEDS: DORZOLAMIDE 2% OPHTH SOLN 10 ML BTL OD SCH (09:13)
[2017-01-23] MEDS: OYSTER SHELL CALCIUM 500 MG TAB PO SCH (09:13)
[2017-01-23] MEDS: TIMOLOL MALEATE 0.5% OPHTH SOLN 5 ML OU SCH (09:13)
[2017-01-23] MEDS: PILOCARPINE 1% OPHTH SOLN 15 ML OU SCH (09:13)
[2017-01-23] MEDS: LISINOPRIL 20 MG TAB PO SCH (09:30)
[2017-01-23] MEDS: predniSONE 20 MG TAB PO SCH (09:30)
[2017-01-23] MEDS ORDERED: LevoFLOXacin 500 MG TABLET PO ONE (11:00)
[2017-01-23 14:00] VITALS: BP 130/62
[2017-01-23] MEDS: OLANZapine 5 MG TAB PO SCH (21:30)
[2017-01-23] MEDS: SIMVASTATIN 20 MG TAB PO SCH (21:31)
[2017-01-23 22:00] VITALS: BP 160/78
[2017-01-24] MEDS: IPRATROPIUM 0.5MG/ALBUTEROL 2.5MG INH SOL UD 3ML (DUONEB)(J7620) NEB SCH ×4 (01:13→19:34)
[2017-01-24] MEDS: LevoFLOXacin 250 MG TABLET PO SCH (05:08)
[2017-01-24] MEDS: HEPARIN SOD (PORCINE) 5000 UNITS/ML VIAL SQ SCH ×3 (05:08→21:22)
[2017-01-24 06:00] VITALS: BP 154/80
[2017-01-24 06:34] LABS: ALBUMIN 2.5 GM/DL (3.2-5.2); ALBUMIN/GLOBULIN RATIO 0.71 (1.00-1.93); ALKALINE PHOSPHATASE 55 U/L (45-117); ALT/SGPT 20 U/L (12-78); ANION GAP 6 MEQ/L (8-16); AST/SGOT 11 U/L (15-37); BILIRUBIN,TOTAL 0.2 MG/DL (0.2-1.0); BLOOD UREA NITROGEN 44 MG/DL (7-18); CALCIUM LEVEL 9.5 MG/DL (8.8-10.2); CARBON DIOXIDE LEVEL 30 MEQ/L (21-32); CHLORIDE LEVEL 111 MEQ/L (98-107); CREATININE FOR GFR 1.21 MG/DL (0.70-1.30); GLOMERULAR FILTRATION RATE > 60.0 (>35); GLUCOSE, FASTING 152 MG/DL (83-110); POTASSIUM SERUM 4.2 MEQ/L (3.5-5.1); SODIUM LEVEL 147 MEQ/L (136-145)
[2017-01-24 06:40] LABS: BASO % 0.2 % (0.0-1.0); EOS % 0.1 % (0.0-3.0); LARGE UNSTAINED CELL # 0.1 K/mm3 (0.0-0.4); LARGE UNSTAINED CELL % 1.4 % (0.0-4.0); LYMPH # 0.9 K/mm3 (1.5-4.5); LYMPH % 10.2 % (24.0-44.0); MEAN CORPUSCULAR HEMOGLOBIN 31.1 pg (27.0-33.0); MEAN CORPUSCULAR HGB CONC 33.3 g/dl (32.0-36.5); MEAN CORPUSCULAR VOLUME 93.3 fl (80.0-96.0); MONO # 0.5 K/mm3 (0.0-0.8); MONO % 5.5 % (0.0-5.0); NEUTROPHILS # 7.2 K/mm3 (1.8-7.7); NEUTROPHILS % 82.6 % (36.0-66.0); PLATELET COUNT, AUTOMATED 214 k/mm3 (150-450); RED CELL DISTRIBUTION WIDTH 12.9 % (11.5-14.5); WHITE BLOOD COUNT 8.8 K/mm3 (4.0-10.0)
[2017-01-24] MEDS: HumaLOG INSULIN (NovoLOG) PER UNIT SC SCH ×4 (07:58→20:10)
[2017-01-24] MEDS: DOCUSATE SODIUM 100 MG CAP PO SCH ×2 (07:59→21:22)
[2017-01-24] MEDS: TAMSULOSIN 0.4 MG CAP PO SCH (07:59)
[2017-01-24] MEDS: LACTULOSE 20 GM/30 ML SYRUP UD PO SCH (07:59)
[2017-01-24] MEDS: OYSTER SHELL CALCIUM 500 MG TAB PO SCH (07:59)
[2017-01-24] MEDS: predniSONE 20 MG TAB PO SCH (07:59)
[2017-01-24] MEDS: FINASTERIDE 5 MG TAB PO SCH (07:59)
[2017-01-24] MEDS: LISINOPRIL 20 MG TAB PO SCH (08:01)
[2017-01-24] MEDS: DORZOLAMIDE 2% OPHTH SOLN 10 ML BTL OD SCH (08:01)
[2017-01-24] MEDS: FERROUS GLUCONATE 324 MG TAB PO SCH (08:01)
[2017-01-24] MEDS: amLODIPine 5 MG TAB PO SCH (08:01)
[2017-01-24] MEDS: ASPIRIN 325 MG TAB PO SCH (08:01)
[2017-01-24] MEDS: BRIMONIDINE 0.15% OPHTH SOLN 5 ML OD SCH (08:02)
[2017-01-24] MEDS: PILOCARPINE 1% OPHTH SOLN 15 ML OU SCH (08:03)
[2017-01-24] MEDS: TIMOLOL MALEATE 0.5% OPHTH SOLN 5 ML OU SCH (08:03)
[2017-01-24 14:00] VITALS: BP 154/72
[2017-01-24] MEDS: SIMVASTATIN 20 MG TAB PO SCH (21:22)
[2017-01-24] MEDS: OLANZapine 5 MG TAB PO SCH (21:23)
--- NOTE | 2017-01-24 21:37 | IPN ---
DATE: 01/24/2017 SUBJECTIVE: Patient seen and examined in the room today. Patient is nonverbal. Not able to answer questions. No overnight events reported. OBJECTIVE: VITAL SIGNS: Temperature is 96.9, pulse is 92, respirations 18, blood pressure 154/80, pulse oximetry 95% with 3 liters nasal cannula. GENERAL: Patient is alert and awake. Not able to answer questions or follow commands. HEENT: Normocephalic, atraumatic. Extraocular motor grossly intact. CARDIOVASCULAR: Positive S1, S2, regular rate. LUNGS: Clear to auscultation bilaterally. ABDOMEN: Soft, nontender. Bowel sounds present. EXTREMITIES: No edema. No sign of cyanosis. LABORATORY DATA: WBC 8.8, hemoglobin 10.1, hematocrit 30.1, platelet count is 214. Sodium is 147, potassium 4.2, chloride is 111, carbon dioxide 30, BUN 44, creatinine 1.21, GFR is greater than 60, fasting glucose 152, calcium is 9.5. Total bilirubin 0.2, AST 11, ALT 20, alkaline phosphatase is 55, protein 6, albumin 2.5. ASSESSMENT AND PLAN: 1. Acute on chronic hypoxic respiratory failure secondary to community-acquired pneumonia and chronic obstructive pulmonary disease (COPD) exacerbation. Patient is on by mouth Levaquin now. Patient steroid was also tapered to by mouth prednisone. Will continue to taper patient's oxygen as tolerated. 2. Acute on chronic kidney injury. Patient's creatinine returned to his baseline. Glomerular filtration rate (GFR) today is greater than 60. 3. Anemia of chronic disease. Patient had a blood transfusion on 01/22/2017. No active source of bleeding. Patient's hemoglobin and hematocrit have been stable. 4. Dyslipidemia, on statin. 5. Hypertension, on lisinopril. 6. Diabetes, on sliding scale. 7. Benign prostatic hypertrophy (BPH), on Flomax and Proscar. 8. History of mental retardation. 9. Deep vein thrombosis (DVT) prophylaxis. Patient is on heparin.
[2017-01-24 22:00] VITALS: BP 153/71
[2017-01-25] MEDS: IPRATROPIUM 0.5MG/ALBUTEROL 2.5MG INH SOL UD 3ML (DUONEB)(J7620) NEB SCH ×4 (01:09→19:36)
[2017-01-25] MEDS: LevoFLOXacin 250 MG TABLET PO SCH (05:45)
[2017-01-25] MEDS: HEPARIN SOD (PORCINE) 5000 UNITS/ML VIAL SQ SCH ×3 (05:45→21:34)
[2017-01-25 06:00] VITALS: BP 148/84
[2017-01-25 06:29] LABS: EOS % 0.6 % (0.0-3.0); LARGE UNSTAINED CELL # 0.1 K/mm3 (0.0-0.4); LARGE UNSTAINED CELL % 0.9 % (0.0-4.0); LYMPH % 15.1 % (24.0-44.0); MEAN CORPUSCULAR HEMOGLOBIN 30.4 pg (27.0-33.0); MEAN CORPUSCULAR HGB CONC 32.5 g/dl (32.0-36.5); MEAN CORPUSCULAR VOLUME 93.4 fl (80.0-96.0); MONO # 0.3 K/mm3 (0.0-0.8); MONO % 4.9 % (0.0-5.0); NEUTROPHILS # 5.2 K/mm3 (1.8-7.7); NEUTROPHILS % 78.5 % (36.0-66.0); PLATELET COUNT, AUTOMATED 186 k/mm3 (150-450); RED CELL DISTRIBUTION WIDTH 12.7 % (11.5-14.5); WHITE BLOOD COUNT 6.6 K/mm3 (4.0-10.0)
[2017-01-25 06:50] LABS: ALBUMIN 2.5 GM/DL (3.2-5.2); ALBUMIN/GLOBULIN RATIO 0.76 (1.00-1.93); ALKALINE PHOSPHATASE 56 U/L (45-117); ALT/SGPT 21 U/L (12-78); ANION GAP 4 MEQ/L (8-16); AST/SGOT 11 U/L (15-37); BILIRUBIN,TOTAL 0.3 MG/DL (0.2-1.0); BLOOD UREA NITROGEN 37 MG/DL (7-18); CALCIUM LEVEL 9.3 MG/DL (8.8-10.2); CARBON DIOXIDE LEVEL 35 MEQ/L (21-32); CHLORIDE LEVEL 107 MEQ/L (98-107); CREATININE FOR GFR 1.13 MG/DL (0.70-1.30); GLOMERULAR FILTRATION RATE > 60.0 (>35); GLUCOSE, FASTING 138 MG/DL (83-110); POTASSIUM SERUM 4.3 MEQ/L (3.5-5.1); SODIUM LEVEL 146 MEQ/L (136-145); TOTAL PROTEIN 5.8 GM/DL (6.4-8.2)
[2017-01-25] MEDS: TAMSULOSIN 0.4 MG CAP PO SCH (08:30)
[2017-01-25] MEDS: HumaLOG INSULIN (NovoLOG) PER UNIT SC SCH ×4 (08:30→21:34)
[2017-01-25] MEDS: LACTULOSE 20 GM/30 ML SYRUP UD PO SCH (08:30)
[2017-01-25] MEDS: DOCUSATE SODIUM 100 MG CAP PO SCH ×2 (08:32→21:33)
[2017-01-25] MEDS: ASPIRIN 325 MG TAB PO SCH (08:32)
[2017-01-25] MEDS: amLODIPine 5 MG TAB PO SCH (08:32)
[2017-01-25] MEDS: predniSONE 20 MG TAB PO SCH (08:32)
[2017-01-25] MEDS: OYSTER SHELL CALCIUM 500 MG TAB PO SCH (08:33)
[2017-01-25] MEDS: LISINOPRIL 20 MG TAB PO SCH (08:33)
[2017-01-25] MEDS: FERROUS GLUCONATE 324 MG TAB PO SCH (08:33)
[2017-01-25] MEDS: FINASTERIDE 5 MG TAB PO SCH (08:33)
[2017-01-25] MEDS: DORZOLAMIDE 2% OPHTH SOLN 10 ML BTL OD SCH (08:34)
[2017-01-25] MEDS: PILOCARPINE 1% OPHTH SOLN 15 ML OU SCH (08:34)
[2017-01-25] MEDS: TIMOLOL MALEATE 0.5% OPHTH SOLN 5 ML OU SCH (08:34)
[2017-01-25] MEDS: BRIMONIDINE 0.15% OPHTH SOLN 5 ML OD SCH (08:34)
[2017-01-25 14:00] VITALS: BP 152/69
--- NOTE | 2017-01-25 16:25 | IPN ---
DATE: 01/25/2017 SUBJECTIVE: Patient seen and examined in the room today. Patient is not able to follow commands or answer questions. Patient does not show to have any significant distress. No overnight events reported. OBJECTIVE: VITAL SIGNS: Temperature is 97.3, pulse is 80, respirations 18, blood pressure 148/84, pulse oximetry 98% with 3 liters nasal cannula. GENERAL: Patient is alert and awake, comfortable. Not verbal. Not able to follow commands. HEENT: Normocephalic, atraumatic. Extraocular motor grossly intact. CARDIOVASCULAR: Positive S1, S2, regular rate. LUNGS: Clear to auscultation bilaterally. ABDOMEN: Soft, nontender, nondistended. Bowel sounds present. No rebound, no guarding. EXTREMITIES: No edema. No sign of cyanosis. LABORATORY DATA: WBC 6.6, hemoglobin 10.5, hematocrit 32.3, platelet count is 186. Sodium is 146, potassium 4.3, chloride is 107, carbon dioxide 35, BUN 37, creatinine 1.13, GFR is greater than 60, fasting glucose 138, calcium is 9.3. Total bilirubin 0.3, AST 11, ALT 21, alkaline phosphatase is 56, total protein 5.8, albumin 2.5. Blood culture shows negative times two sets. Sputum culture showed normal fabby. ASSESSMENT AND PLAN: 1. Acute on chronic hypoxic respiratory failure secondary to community-acquired pneumonia and chronic obstructive pulmonary disease (COPD) exacerbation. Patient is on by mouth Levaquin now. Patient is on steroids. Will taper the patient's oxygen as tolerated. 2. Acute on chronic kidney injury. Initially resovled. 3. Anemia of chronic disease. Patient had a blood transfusion on 01/22/2017. No sign of active bleeding. Continue to monitor. 4. Dyslipidemia, on statin. 5. Hypertension, on lisinopril. 6. Diabetes, on sliding scale. 7. Benign prostatic hypertrophy (BPH), on Flomax and Proscar. 8. History of mental retardation. 9. Deep vein thrombosis (DVT) prophylaxis. Patient is on heparin. DISPOSITION: Currently the patient is medically optimized. Patient does not have any family member on his proxy. Patient has a significant mental retardation requires significant assistance at home. We are appreciative of social media executive assistance and hopefully we will all find a safe disposition for the patient.
[2017-01-25] MEDS: OLANZapine 5 MG TAB PO SCH (21:33)
[2017-01-25] MEDS: SIMVASTATIN 20 MG TAB PO SCH (21:33)
[2017-01-25 22:00] VITALS: BP 143/69
[2017-01-26] MEDS: IPRATROPIUM 0.5MG/ALBUTEROL 2.5MG INH SOL UD 3ML (DUONEB)(J7620) NEB SCH ×4 (00:25→19:37)
[2017-01-26] MEDS: HEPARIN SOD (PORCINE) 5000 UNITS/ML VIAL SQ SCH ×3 (05:14→21:33)
[2017-01-26] MEDS: LevoFLOXacin 250 MG TABLET PO SCH (05:16)
[2017-01-26 06:00] VITALS: BP 137/62
[2017-01-26 06:03] LABS: BASO % 0.1 % (0.0-1.0); EOS % 0.3 % (0.0-3.0); LARGE UNSTAINED CELL # 0.1 K/mm3 (0.0-0.4); LARGE UNSTAINED CELL % 1.2 % (0.0-4.0); LYMPH # 0.9 K/mm3 (1.5-4.5); LYMPH % 12.3 % (24.0-44.0); MEAN CORPUSCULAR HEMOGLOBIN 30.3 pg (27.0-33.0); MEAN CORPUSCULAR HGB CONC 32.9 g/dl (32.0-36.5); MEAN CORPUSCULAR VOLUME 92.3 fl (80.0-96.0); MONO # 0.3 K/mm3 (0.0-0.8); MONO % 4.8 % (0.0-5.0); NEUTROPHILS # 5.2 K/mm3 (1.8-7.7); NEUTROPHILS % 81.4 % (36.0-66.0); PLATELET COUNT, AUTOMATED 193 k/mm3 (150-450); RED CELL DISTRIBUTION WIDTH 12.8 % (11.5-14.5); WHITE BLOOD COUNT 6.4 K/mm3 (4.0-10.0)
[2017-01-26 06:20] LABS: ALBUMIN 2.6 GM/DL (3.2-5.2); ALBUMIN/GLOBULIN RATIO 0.72 (1.00-1.93); ALKALINE PHOSPHATASE 58 U/L (45-117); ALT/SGPT 28 U/L (12-78); ANION GAP 2 MEQ/L (8-16); AST/SGOT 10 U/L (15-37); BILIRUBIN,TOTAL 0.4 MG/DL (0.2-1.0); BLOOD UREA NITROGEN 33 MG/DL (7-18); CALCIUM LEVEL 9.9 MG/DL (8.8-10.2); CARBON DIOXIDE LEVEL 38 MEQ/L (21-32); CHLORIDE LEVEL 106 MEQ/L (98-107); GLOMERULAR FILTRATION RATE > 60.0 (>35); GLUCOSE, FASTING 147 MG/DL (83-110); POTASSIUM SERUM 4.5 MEQ/L (3.5-5.1); SODIUM LEVEL 146 MEQ/L (136-145); TOTAL PROTEIN 6.2 GM/DL (6.4-8.2)
[2017-01-26] MEDS: ASPIRIN 325 MG TAB PO SCH (08:29)
[2017-01-26] MEDS: DOCUSATE SODIUM 100 MG CAP PO SCH ×2 (08:29→21:33)
[2017-01-26] MEDS: FERROUS GLUCONATE 324 MG TAB PO SCH (08:29)
[2017-01-26] MEDS: OYSTER SHELL CALCIUM 500 MG TAB PO SCH (08:30)
[2017-01-26] MEDS: predniSONE 20 MG TAB PO SCH (08:30)
[2017-01-26] MEDS: FINASTERIDE 5 MG TAB PO SCH (08:30)
[2017-01-26] MEDS: HumaLOG INSULIN (NovoLOG) PER UNIT SC SCH ×4 (08:30→20:46)
[2017-01-26] MEDS: TAMSULOSIN 0.4 MG CAP PO SCH (08:30)
[2017-01-26] MEDS: LACTULOSE 20 GM/30 ML SYRUP UD PO SCH (08:30)
[2017-01-26] MEDS: amLODIPine 5 MG TAB PO SCH (08:31)
[2017-01-26] MEDS: LISINOPRIL 20 MG TAB PO SCH (08:31)
[2017-01-26] MEDS: PILOCARPINE 1% OPHTH SOLN 15 ML OU SCH (08:31)
[2017-01-26] MEDS: TIMOLOL MALEATE 0.5% OPHTH SOLN 5 ML OU SCH (08:32)
[2017-01-26] MEDS: DORZOLAMIDE 2% OPHTH SOLN 10 ML BTL OD SCH (08:32)
[2017-01-26] MEDS: BRIMONIDINE 0.15% OPHTH SOLN 5 ML OD SCH (08:32)
[2017-01-26 14:00] VITALS: BP 148/67
--- NOTE | 2017-01-26 14:45 | IPN ---
DATE OF VISIT: 01/26/2017 SUBJECTIVE: Patient seen and examined in the room today. Patient has continued to be nonverbal, not able to follow commands. No overnight events reported. OBJECTIVE: VITAL SIGNS: Temperature is 97.9, pulse is 91, respirations 18, blood pressure 137/62, pulse oximetry 94% with 2 liters nasal cannula. GENERAL: No sign of acute distress. Patient is nonverbal, not able to follow commands. Patient is not oriented. HEENT: Normocephalic, atraumatic. Extraocular motor grossly intact. CARDIOVASCULAR: Positive S1, S2, regular rate. LUNGS: Clear to auscultation bilaterally. ABDOMEN: Soft, nontender, nondistended. Bowel sounds present. No rebound, no guarding. EXTREMITIES: No edema. No sign of cyanosis. LABORATORY DATA: WBC 6.4, hemoglobin 10.6, hematocrit 32.1, platelet count is 193. Sodium is 146, potassium 4.5, chloride is 106, carbon dioxide 38, BUN 33, creatinine 1.12, GFR is 26, fasting glucose 147, calcium is 9.9. Total bilirubin 0.4, AST 10, ALT 28, alkaline phosphatase is 58, total protein 6.3, albumin 2.6. ASSESSMENT AND PLAN: 1. Acute on chronic hypoxic respiratory failure secondary to community-acquired pneumonia and chronic obstructive pulmonary disease (COPD) exacerbation. Patient finished one week course of antibiotic. Patient was on Zithromax and Rocephin previously. Patient is switched to Levaquin and antibiotic will be discontinued. I will taper patient's oxygen. Patient is also on steroid tapering. 2. Acute kidney injury. Resolved. 3. Anemia of chronic disease. Patient had a transfusion on 01/22/2017. No active bleeding. Hemoglobin and hematocrit stable. 4. Dyslipidemia, on statin. 5. Hypertension, on lisinopril. Blood pressure in the satisfactory range. 6. Diabetes, on sliding scale. 7. Benign prostatic hypertrophy, on Flomax and Proscar. 8. History of mental retardation. Requiring significant care. We are looking for safe placement. 9. Deep vein thrombosis (DVT) prophylaxis. On heparin.
[2017-01-26 14:55] LABS: ABG BASE EXCESS 9.6 (-2.0-2.0); ABG HCO3 35.1 MEQ/L (22.0-26.0); ABG PARTIAL PRESSURE CO2 52.4 mmHg (35.0-45.0); ABG STANDARD HCO3 33.3 MEQ/L (22.0-26.0); ABG TOTAL CO2 36.7 MEQ/L (23.0-31.0); ABG pH (ARTERIAL) 7.444 UNITS (7.350-7.450)
[2017-01-26] MEDS: SIMVASTATIN 20 MG TAB PO SCH (21:33)
[2017-01-26] MEDS: OLANZapine 5 MG TAB PO SCH (21:33)
[2017-01-26 22:00] VITALS: BP 133/79
[2017-01-27] MEDS: IPRATROPIUM 0.5MG/ALBUTEROL 2.5MG INH SOL UD 3ML (DUONEB)(J7620) NEB SCH ×4 (01:36→19:24)
[2017-01-27] MEDS: HEPARIN SOD (PORCINE) 5000 UNITS/ML VIAL SQ SCH ×3 (05:41→21:23)
[2017-01-27 06:00] VITALS: BP 132/77
[2017-01-27 06:47] LABS: BASO % 0.2 % (0.0-1.0); EOS % 0.7 % (0.0-3.0); LARGE UNSTAINED CELL # 0.1 K/mm3 (0.0-0.4); LARGE UNSTAINED CELL % 1.2 % (0.0-4.0); LYMPH # 1.2 K/mm3 (1.5-4.5); MEAN CORPUSCULAR HEMOGLOBIN 30.4 pg (27.0-33.0); MEAN CORPUSCULAR HGB CONC 33.1 g/dl (32.0-36.5); MEAN CORPUSCULAR VOLUME 91.6 fl (80.0-96.0); MONO # 0.3 K/mm3 (0.0-0.8); MONO % 4.5 % (0.0-5.0); NEUTROPHILS # 5.4 K/mm3 (1.8-7.7); NEUTROPHILS % 77.4 % (36.0-66.0); PLATELET COUNT, AUTOMATED 205 k/mm3 (150-450); RED CELL DISTRIBUTION WIDTH 12.7 % (11.5-14.5)
[2017-01-27 07:03] LABS: ALBUMIN 2.6 GM/DL (3.2-5.2); ALBUMIN/GLOBULIN RATIO 0.84 (1.00-1.93); ALKALINE PHOSPHATASE 55 U/L (45-117); ALT/SGPT 28 U/L (12-78); ANION GAP 6 MEQ/L (8-16); AST/SGOT 12 U/L (15-37); BILIRUBIN,TOTAL 0.4 MG/DL (0.2-1.0); BLOOD UREA NITROGEN 32 MG/DL (7-18); CALCIUM LEVEL 9.9 MG/DL (8.8-10.2); CARBON DIOXIDE LEVEL 34 MEQ/L (21-32); CHLORIDE LEVEL 105 MEQ/L (98-107); CREATININE FOR GFR 1.15 MG/DL (0.70-1.30); GLOMERULAR FILTRATION RATE > 60.0 (>35); GLUCOSE, FASTING 142 MG/DL (83-110); POTASSIUM SERUM 4.4 MEQ/L (3.5-5.1); SODIUM LEVEL 145 MEQ/L (136-145); TOTAL PROTEIN 5.7 GM/DL (6.4-8.2)
[2017-01-27] MEDS: LACTULOSE 20 GM/30 ML SYRUP UD PO SCH (09:34)
[2017-01-27] MEDS: FINASTERIDE 5 MG TAB PO SCH (09:35)
[2017-01-27] MEDS: HumaLOG INSULIN (NovoLOG) PER UNIT SC SCH ×4 (09:35→21:00)
[2017-01-27] MEDS: DOCUSATE SODIUM 100 MG CAP PO SCH ×2 (09:35→21:19)
[2017-01-27] MEDS: ASPIRIN 325 MG TAB PO SCH (09:35)
[2017-01-27] MEDS: TAMSULOSIN 0.4 MG CAP PO SCH (09:36)
[2017-01-27] MEDS: FERROUS GLUCONATE 324 MG TAB PO SCH (09:36)
[2017-01-27] MEDS: OYSTER SHELL CALCIUM 500 MG TAB PO SCH (09:36)
[2017-01-27] MEDS: predniSONE 20 MG TAB PO SCH (09:36)
[2017-01-27] MEDS: BRIMONIDINE 0.15% OPHTH SOLN 5 ML OD SCH (09:39)
[2017-01-27] MEDS: amLODIPine 5 MG TAB PO SCH (09:39)
[2017-01-27] MEDS: LISINOPRIL 20 MG TAB PO SCH (09:39)
[2017-01-27] MEDS: TIMOLOL MALEATE 0.5% OPHTH SOLN 5 ML OU SCH (09:39)
[2017-01-27] MEDS: PILOCARPINE 1% OPHTH SOLN 15 ML OU SCH (09:39)
[2017-01-27] MEDS: DORZOLAMIDE 2% OPHTH SOLN 10 ML BTL OD SCH (09:40)
[2017-01-27] MEDS: SENOKOT S TAB PO PRN (12:32)
[2017-01-27] MEDS: MIRALAX *UNIT DOSE* 17GM PACKET PO PRN (12:33)
[2017-01-27 14:00] VITALS: BP 148/72
--- NOTE | 2017-01-27 18:17 | IPN ---
DATE: 01/27/2017 SUBJECTIVE: The patient is seen and examined in the room today. The patient is still nonverbal, unable to follow commands. The patient started having abdominal distention, and the patient has not had any bowel movement. Otherwise, no overnight events reported. OBJECTIVE: VITAL SIGNS: Temperature 97.7, pulse is 74, respiratory rate 20, blood pressure 132/77, pulse oximetry 92% on room air. GENERAL: The patient is alert and awake, not oriented, nonverbal. HEENT: Normocephalic, atraumatic. Extraocular motor grossly intact. CARDIOVASCULAR: Positive S1, S2. Regular rate. LUNGS: Clear to auscultation bilaterally. ABDOMEN: Soft, nontender, nondistended. Bowel sounds present. No rebound, no guarding. EXTREMITIES: No edema. No sign of cyanosis. DERMATOLOGIC: The patient does have dysplastic mole-like lesion in the middle of the chest. LABORATORY DATA: Sodium 145, potassium 4.4, chloride 105, carbon dioxide 34, BUN 32, creatinine 1.15, GFR greater than 60, fasting glucose 142, calcium 9.9. Total bilirubin 0.4, AST 12, ALT 28, alkaline phosphatase 55. Total protein 5.7, albumin 2.6. ASSESSMENT AND PLAN: 1. Acute on chronic hypoxic respiratory failure secondary to community-acquired pneumonia and chronic obstructive pulmonary disease (COPD) exacerbation. The patient finished one course of antibiotic treatment. The patient is on a tapering dose of steroids. 2. Mental retardation. The patient does not have any healthcare proxy. The patient does have a caregiver; however, equally difficult situation for obtaining consent for any type of procedure for the patient or any aggressive treatments. 3. 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 The patient may need outpatient skin biopsy, and the patient should follow after discharge. 4. Dyslipidemia. On statin. 5. Hypertension. On lisinopril. 6. Diabetes. On sliding scale. 7. Benign prostatic hypertrophy (BPH). On Flomax and Proscar. 8. Deep venous thrombosis (DVT) prophylaxis. The patient is on heparin.
[2017-01-27] MEDS: SIMVASTATIN 20 MG TAB PO SCH (21:19)
[2017-01-27] MEDS: OLANZapine 5 MG TAB PO SCH (21:21)
[2017-01-27 22:00] VITALS: BP 143/65
[2017-01-28] MEDS: IPRATROPIUM 0.5MG/ALBUTEROL 2.5MG INH SOL UD 3ML (DUONEB)(J7620) NEB SCH ×4 (01:36→19:22)
[2017-01-28] MEDS: HEPARIN SOD (PORCINE) 5000 UNITS/ML VIAL SQ SCH ×3 (05:25→21:29)
[2017-01-28 05:52] LABS: BASO % 0.1 % (0.0-1.0); EOS # 0.1 K/mm3 (0.0-0.50); EOS % 1.2 % (0.0-3.0); LARGE UNSTAINED CELL # 0.1 K/mm3 (0.0-0.4); LARGE UNSTAINED CELL % 1.2 % (0.0-4.0); LYMPH # 1.4 K/mm3 (1.5-4.5); LYMPH % 19.8 % (24.0-44.0); MEAN CORPUSCULAR HEMOGLOBIN 30.8 pg (27.0-33.0); MEAN CORPUSCULAR HGB CONC 33.4 g/dl (32.0-36.5); MEAN CORPUSCULAR VOLUME 92.1 fl (80.0-96.0); MONO # 0.3 K/mm3 (0.0-0.8); MONO % 4.3 % (0.0-5.0); NEUTROPHILS % 73.5 % (36.0-66.0); PLATELET COUNT, AUTOMATED 189 k/mm3 (150-450); RED CELL DISTRIBUTION WIDTH 12.7 % (11.5-14.5); WHITE BLOOD COUNT 6.9 K/mm3 (4.0-10.0)
[2017-01-28 06:00] VITALS: BP 141/67
[2017-01-28 06:09] LABS: ALBUMIN 2.6 GM/DL (3.2-5.2); ALKALINE PHOSPHATASE 51 U/L (45-117); ALT/SGPT 28 U/L (12-78); ANION GAP 5 MEQ/L (8-16); AST/SGOT 13 U/L (15-37); BILIRUBIN,TOTAL 0.3 MG/DL (0.2-1.0); BLOOD UREA NITROGEN 30 MG/DL (7-18); CALCIUM LEVEL 9.7 MG/DL (8.8-10.2); CARBON DIOXIDE LEVEL 34 MEQ/L (21-32); CHLORIDE LEVEL 103 MEQ/L (98-107); CREATININE FOR GFR 1.08 MG/DL (0.70-1.30); GLOMERULAR FILTRATION RATE > 60.0 (>35); GLUCOSE, FASTING 138 MG/DL (83-110); POTASSIUM SERUM 4.2 MEQ/L (3.5-5.1); SODIUM LEVEL 142 MEQ/L (136-145); TOTAL PROTEIN 5.5 GM/DL (6.4-8.2)
[2017-01-28] MEDS: HumaLOG INSULIN (NovoLOG) PER UNIT SC SCH ×4 (10:58→21:00)
[2017-01-28] MEDS: ASPIRIN 325 MG TAB PO SCH (10:59)
[2017-01-28] MEDS: amLODIPine 5 MG TAB PO SCH (10:59)
[2017-01-28] MEDS: OYSTER SHELL CALCIUM 500 MG TAB PO SCH (10:59)
[2017-01-28] MEDS: TAMSULOSIN 0.4 MG CAP PO SCH (10:59)
[2017-01-28] MEDS: DOCUSATE SODIUM 100 MG CAP PO SCH ×2 (10:59→21:28)
[2017-01-28] MEDS: DORZOLAMIDE 2% OPHTH SOLN 10 ML BTL OD SCH (11:00)
[2017-01-28] MEDS: FERROUS GLUCONATE 324 MG TAB PO SCH (11:00)
[2017-01-28] MEDS: TIMOLOL MALEATE 0.5% OPHTH SOLN 5 ML OU SCH (11:00)
[2017-01-28] MEDS: FINASTERIDE 5 MG TAB PO SCH (11:00)
[2017-01-28] MEDS: LACTULOSE 20 GM/30 ML SYRUP UD PO SCH (11:00)
[2017-01-28] MEDS: LISINOPRIL 20 MG TAB PO SCH (11:00)
[2017-01-28] MEDS: BRIMONIDINE 0.15% OPHTH SOLN 5 ML OD SCH (11:00)
[2017-01-28] MEDS: predniSONE 20 MG TAB PO SCH (11:00)
[2017-01-28] MEDS: PILOCARPINE 1% OPHTH SOLN 15 ML OU SCH (11:00)
--- NOTE | 2017-01-28 12:52 | IPN ---
DATE: 01/28/2017 SUBJECTIVE: Patient is seen and examined in the room today. Patient is nonverbal, barely follows commands. Patient is continuing to have no significant bowel movements. Patient did produce mucoid like material out the rectum, but no solid stool. OBJECTIVE: VITAL SIGNS: Temperature 97.1, pulse is 94, respiratory rate 18, blood pressure 141/67, pulse oximetry 92% with 2 liters nasal cannula. GENERAL: Patient is alert and awake, not signs of acute distress. Patient is not oriented, nonverbal. HEENT: Normocephalic, atraumatic. Extraocular motor grossly intact. CARDIOVASCULAR: Positive S1, S2. Regular rate. ABDOMEN: Mildly distended, soft, nontender. Bowel sounds present. EXTREMITIES: No edema. No cyanosis. DERMATOLOGIC: Patient has a dysplastic mole-like lesion located in the middle of the chest. LABORATORY DATA: WBC is 6.9, hemoglobin 10.4, hematocrit 31.2, platelet count is 189. Sodium 142 potassium 4.2, chloride 103, carbon dioxide 34, BUN 30, creatinine 1.08, GFR greater than 60, fasting glucose 139, calcium 9.7. Total bilirubin 0.3, AST 13, ALT 28, alkaline phosphatase 51. Total protein 5.5, albumin 2.6. ASSESSMENT AND PLAN: 1. Acute on chronic hypoxic respiratory failure secondary to community-acquired pneumonia and chronic obstructive pulmonary disease (COPD) exacerbation. Patient finished his course of antibiotics. Patient is on a tapering dose of steroids. Patient's breathing has been improved. 2. Mental retardation. The patient does not have any healthcare proxy. The patient does have a caregiver. 3. Constipation. Per medical documents and the nursing staff, the patient has not had any meaningful bowel movement since admission. Every time, patient can only produce mucoid like material and there is no solid stool or form. Patient has been on an escalated regimen for constipation. If the patient started to have abdominal distention, will follow with imaging studies to rule out any type of obstruction. 4. Dyslipidemia. On statin. 5. Hypertension. On lisinopril. 6. Diabetes. On sliding scale. 7. Benign prostatic hypertrophy (BPH). On Flomax and Proscar. 8. Deep venous thrombosis (DVT) prophylaxis. On heparin.
[2017-01-28 14:00] VITALS: BP 141/65
[2017-01-28] MEDS: SENOKOT S TAB PO PRN (21:28)
[2017-01-28] MEDS: SIMVASTATIN 20 MG TAB PO SCH (21:28)
[2017-01-28] MEDS: OLANZapine 5 MG TAB PO SCH (21:29)
[2017-01-28] MEDS: MIRALAX *UNIT DOSE* 17GM PACKET PO PRN (21:29)
[2017-01-28 22:00] VITALS: BP 139/67
[2017-01-29] MEDS: IPRATROPIUM 0.5MG/ALBUTEROL 2.5MG INH SOL UD 3ML (DUONEB)(J7620) NEB SCH ×4 (01:39→19:43)
[2017-01-29] MEDS: HEPARIN SOD (PORCINE) 5000 UNITS/ML VIAL SQ SCH ×3 (05:25→21:44)
[2017-01-29 06:00] VITALS: BP 137/65
[2017-01-29] MEDS: MIRALAX *UNIT DOSE* 17GM PACKET PO PRN (08:52)
[2017-01-29] MEDS: LACTULOSE 20 GM/30 ML SYRUP UD PO SCH (08:52)
[2017-01-29] MEDS: HumaLOG INSULIN (NovoLOG) PER UNIT SC SCH ×4 (08:53→21:44)
[2017-01-29] MEDS: FERROUS GLUCONATE 324 MG TAB PO SCH (08:53)
[2017-01-29] MEDS: ASPIRIN 325 MG TAB PO SCH (08:53)
[2017-01-29] MEDS: DOCUSATE SODIUM 100 MG CAP PO SCH ×2 (08:53→21:43)
[2017-01-29] MEDS: OYSTER SHELL CALCIUM 500 MG TAB PO SCH (08:53)
[2017-01-29] MEDS: TAMSULOSIN 0.4 MG CAP PO SCH (08:53)
[2017-01-29] MEDS: FINASTERIDE 5 MG TAB PO SCH (08:54)
[2017-01-29] MEDS: predniSONE 20 MG TAB PO SCH (08:54)
[2017-01-29] MEDS: SENOKOT S TAB PO PRN (08:54)
[2017-01-29] MEDS: BRIMONIDINE 0.15% OPHTH SOLN 5 ML OD SCH (08:54)
[2017-01-29] MEDS: TIMOLOL MALEATE 0.5% OPHTH SOLN 5 ML OU SCH (08:54)
[2017-01-29] MEDS: DORZOLAMIDE 2% OPHTH SOLN 10 ML BTL OD SCH (08:54)
[2017-01-29] MEDS: amLODIPine 5 MG TAB PO SCH (08:54)
[2017-01-29] MEDS: LISINOPRIL 20 MG TAB PO SCH (08:54)
[2017-01-29] MEDS: PILOCARPINE 1% OPHTH SOLN 15 ML OU SCH (08:54)
--- NOTE | 2017-01-29 09:03 | REP ---
Clinical: Abdominal pain and distension. Technique: Axial noncontrast images from the lung bases to the pubic symphysis with coronal and sagittal re-formations. Comparison: 10/02/2016. Findings: Lung bases demonstrate chronic COPD/emphysematous changes with associated chronic pulmonary vascular congestion and mild bibasilar atelectasis without effusion. Liver, spleen, pancreas, bilateral adrenal glands are normal for noncontrast evaluation. Kidneys demonstrate moderate chronic changes, presumed 2 cm left renal cyst, symmetric chronic-appearing perinephric stranding without hydroureternephrosis or nephroureterolithiasis. Cholelithiasis noted without CT evidence for acute cholecystitis. The enteric system suggests a large duodenal diverticulum along the vertical portion of the duodenum adjacent to the head/uncinate process of the pancreas. The small and large bowel demonstrates moderate fecal stasis and diverticulosis without evidence for obstruction or obvious acute inflammatory process. The pelvis demonstrates enlarged prostate gland and stable appearance of the bladder with anterior left diverticulum herniating into the left inguinal canal. No ascites. No free air. No significant adenopathy. Atherosclerotic changes to the vasculature noted without aneurysm. Musculoskeletal structures demonstrate age-related degenerative changes. Impression: 1. Lung bases demonstrate chronic changes with mild bibasilar atelectasis. 2. 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 3. Evidence for fecal stasis and presumed constipation along with diverticulosis and no evidence for acute obstruction or inflammatory process. 4. Small bladder diverticulum identified herniating into the left inguinal canal. 5. Cholelithiasis. 6. Further chronic changes including chronic changes to the kidneys, enlarged prostate gland, atherosclerotic changes to the vasculature and degenerative changes to the musculoskeletal structures. Signed by Ernesto Gracia MD 01/29/2017 08:53 A
[2017-01-29] MEDS ORDERED: FLEET ENEMA PR ONE (09:15)
--- NOTE | 2017-01-29 13:07 | IPN ---
DATE OF VISIT: 01/29/2017 SUBJECTIVE: Patient is seen and examined in the room today. Patient remains nonverbal. Per nursing staff, patient had regular oral intake. However, patient still does not have solid stool observed during bowel movements. OBJECTIVE: VITAL SIGNS: Temperature is 99.1, pulse is 83, respiratory rate 20, blood pressure 137/65, pulse oximetry 90% on room air. GENERAL: No sign of acute distress. Patient is alert and awake. Patient is not oriented. Patient nonverbal. HEENT: Normocephalic, atraumatic. Extraocular motor grossly intact. CARDIOVASCULAR: Positive S1, S2. Regular rate. ABDOMEN: Mildly distended, soft, nontender. No facial grimace upon direct palpation. Bowel sounds present. EXTREMITIES: No edema. No cyanosis. DERMATOLOGICAL: Patient has a dysplastic mole-like lesion located in the mid chest. LABORATORY DATA: WBC 6.9, hemoglobin 10.4, hematocrit is 31.2, platelet count is 189. Sodium 142 potassium 4.2, chloride 103, carbon dioxide 34, BUN 30, creatinine 1.01, GFR is greater than 60, fasting glucose 138, calcium 9.7. Total bilirubin 0.3, AST 13, ALT 28, alkaline phosphatase is 51. Albumin 2.6. IMAGING STUDIES: CT abdomen and pelvis shows evidence of fecal stasis and presumed constipation along with diverticulosis and no evidence of acute obstruction or inflammatory process. ASSESSMENT/PLAN: 1. Acute on chronic hypoxic respiratory failure secondary to community-acquired pneumonia and chronic obstructive pulmonary disease (COPD) exacerbation. Patient currently able to maintain satisfactory oxygen saturation on room air. Patient finished course of antibiotics. Patient is on a tapering dose of steroids. 2. Mental retardation. Patient does not have any healthcare proxy, but patient does have a caregiver. 3. Constipation. Confirmed by CT imaging. Patient has an escalated regimen for bowel movement. Will try the enema today. 4. Dyslipidemia. On statin. 5. Hypertension. On lisinopril. 6. Diabetes. On sliding scale. 7. BPH. On Flomax and Proscar. 8. Deep venous thrombosis (DVT) prophylaxis. On heparin.
[2017-01-29 14:00] VITALS: BP 143/69
[2017-01-29] MEDS ORDERED: FLEET ENEMA PR PRN (16:45)
[2017-01-29] MEDS: SIMVASTATIN 20 MG TAB PO SCH (21:43)
[2017-01-29] MEDS: OLANZapine 5 MG TAB PO SCH (21:44)
[2017-01-29 22:00] VITALS: BP 148/72
[2017-01-30] MEDS: IPRATROPIUM 0.5MG/ALBUTEROL 2.5MG INH SOL UD 3ML (DUONEB)(J7620) NEB SCH ×4 (01:37→19:57)
[2017-01-30] MEDS: HEPARIN SOD (PORCINE) 5000 UNITS/ML VIAL SQ SCH ×3 (05:14→21:26)
[2017-01-30 06:00] VITALS: BP 130/69
[2017-01-30] MEDS: TAMSULOSIN 0.4 MG CAP PO SCH (10:16)
[2017-01-30] MEDS: LACTULOSE 20 GM/30 ML SYRUP UD PO SCH (10:16)
[2017-01-30] MEDS: DOCUSATE SODIUM 100 MG CAP PO SCH ×2 (10:17→21:26)
[2017-01-30] MEDS: FERROUS GLUCONATE 324 MG TAB PO SCH (10:17)
[2017-01-30] MEDS: ASPIRIN 325 MG TAB PO SCH (10:17)
[2017-01-30] MEDS: OYSTER SHELL CALCIUM 500 MG TAB PO SCH (10:17)
[2017-01-30] MEDS: FINASTERIDE 5 MG TAB PO SCH (10:18)
[2017-01-30] MEDS: PILOCARPINE 1% OPHTH SOLN 15 ML OU SCH (10:18)
[2017-01-30] MEDS: TIMOLOL MALEATE 0.5% OPHTH SOLN 5 ML OU SCH (10:18)
[2017-01-30] MEDS: predniSONE 10 MG TAB PO SCH (10:18)
[2017-01-30] MEDS: BRIMONIDINE 0.15% OPHTH SOLN 5 ML OD SCH (10:19)
[2017-01-30] MEDS: DORZOLAMIDE 2% OPHTH SOLN 10 ML BTL OD SCH (10:19)
[2017-01-30] MEDS: LISINOPRIL 20 MG TAB PO SCH (10:21)
[2017-01-30] MEDS: amLODIPine 5 MG TAB PO SCH (10:22)
[2017-01-30] MEDS: HumaLOG INSULIN (NovoLOG) PER UNIT SC SCH ×4 (10:24→21:26)
[2017-01-30 14:00] VITALS: BP 131/73
--- NOTE | 2017-01-30 17:59 | IPN ---
DATE: 01/30/2017 SUBJECTIVE: Patient is seen and examined in the room today. Patient had an enema treatment multiple times in the past. The patient did have some solid stool movements. No overnight events reported. The patient had good oral intake. OBJECTIVE: VITAL SIGNS: Temperature is 97.5, pulse is 76, respiratory rate 20, blood pressure 130/69, pulse oximetry 91% on room air. GENERAL: No sign of acute distress. Patient is alert and awake. Patient is not oriented. Patient is nonverbal. HEENT: Normocephalic, atraumatic. Extraocular motor grossly intact. CARDIOVASCULAR: Positive S1, S2. Regular rate. LUNGS: Clear to auscultation bilaterally. ABDOMEN: Mildly distended, soft, nontender. Bowel sounds present. EXTREMITIES: No edema. No sign of cyanosis. DERMATOLOGICAL: Patient has a dysplastic mole-like lesion located in the mid chest. ASSESSMENT/PLAN: 1. Acute on chronic hypoxic respiratory failure secondary to community-acquired pneumonia and chronic obstructive pulmonary disease (COPD) exacerbation. Patient finished course of antibiotics. Patient is on a tapering dose of steroids. The patient is maintaining satisfactory oxygen saturation on room air. 2. Mental retardation. Patient does not have any healthcare proxy. animal care service worker and case briefer has been assisting on the issue. They are in the process of looking for level II assisted living placement options. The patient does have a caregiver, Mrs. Murphy, however, since December the patient has required multiple emergency room visits and hospitalizations. The caregiver may not provider proper care if the patient is discharged home today. The patient may not receive adequate care at the house. 3. Constipation. Confirmed by CT imaging. Patient had a bowel movement with enema. We will continue enema as needed. 4. Dyslipidemia. On statin. 5. Hypertension. On lisinopril. 6. Diabetes. On sliding scale and consistent carbohydrate diet. 7. Benign prostatic hypertrophy (BPH) . On Flomax and Proscar. 8. Deep venous thrombosis (DVT) prophylaxis. On heparin.
[2017-01-30] MEDS: SIMVASTATIN 20 MG TAB PO SCH (21:26)
[2017-01-30] MEDS: OLANZapine 5 MG TAB PO SCH (21:26)
[2017-01-30 22:00] VITALS: BP 123/58
[2017-01-31] MEDS: IPRATROPIUM 0.5MG/ALBUTEROL 2.5MG INH SOL UD 3ML (DUONEB)(J7620) NEB SCH ×2 (01:23→07:11)
[2017-01-31] MEDS: HEPARIN SOD (PORCINE) 5000 UNITS/ML VIAL SQ SCH (05:09)
[2017-01-31 06:00] VITALS: BP 132/57
[2017-01-31 07:30] LABS: MEAN CORPUSCULAR HEMOGLOBIN 30.7 pg (27.0-33.0); MEAN CORPUSCULAR HGB CONC 32.6 g/dl (32.0-36.5); MEAN CORPUSCULAR VOLUME 94.1 fl (80.0-96.0); WHITE BLOOD COUNT 7.4 K/mm3 (4.0-10.0)
[2017-01-31 07:41] LABS: ANION GAP 6 MEQ/L (8-16); BLOOD UREA NITROGEN 28 MG/DL (7-18); CALCIUM LEVEL 9.2 MG/DL (8.8-10.2); CARBON DIOXIDE LEVEL 29 MEQ/L (21-32); CHLORIDE LEVEL 104 MEQ/L (98-107); CREATININE FOR GFR 1.15 MG/DL (0.70-1.30); GLOMERULAR FILTRATION RATE > 60.0 (>35); GLUCOSE, FASTING 113 MG/DL (83-110); POTASSIUM SERUM 4.8 MEQ/L (3.5-5.1); SODIUM LEVEL 139 MEQ/L (136-145)
[2017-01-31] MEDS: PILOCARPINE 1% OPHTH SOLN 15 ML OU SCH (08:46)
[2017-01-31] MEDS: DOCUSATE SODIUM 100 MG CAP PO SCH (08:46)
[2017-01-31] MEDS: BRIMONIDINE 0.15% OPHTH SOLN 5 ML OD SCH (08:46)
[2017-01-31] MEDS: LACTULOSE 20 GM/30 ML SYRUP UD PO SCH (08:46)
[2017-01-31] MEDS: TIMOLOL MALEATE 0.5% OPHTH SOLN 5 ML OU SCH (08:46)
[2017-01-31] MEDS: DORZOLAMIDE 2% OPHTH SOLN 10 ML BTL OD SCH (08:46)
[2017-01-31] MEDS: predniSONE 10 MG TAB PO SCH (08:47)
[2017-01-31] MEDS: ASPIRIN 325 MG TAB PO SCH (08:47)
[2017-01-31] MEDS: FINASTERIDE 5 MG TAB PO SCH (08:47)
[2017-01-31] MEDS: FERROUS GLUCONATE 324 MG TAB PO SCH (08:47)
[2017-01-31] MEDS: OYSTER SHELL CALCIUM 500 MG TAB PO SCH (08:47)
[2017-01-31] MEDS: TAMSULOSIN 0.4 MG CAP PO SCH (08:47)
[2017-01-31 08:50] VITALS: BP 140/60
[2017-01-31] MEDS: LISINOPRIL 20 MG TAB PO SCH (08:50)
[2017-01-31] MEDS: amLODIPine 5 MG TAB PO SCH (08:50)
[2017-01-31] MEDS: HumaLOG INSULIN (NovoLOG) PER UNIT SC SCH ×2 (08:50→12:19)
--- NOTE | 2017-01-31 13:09 | DS.PDOC ---
Discharge Summary General Date of Admission Jan 20, 2017 at 18:20 Date of Discharge 01/31/17 Discharge Summary PROCEDURES PERFORMED DURING STAY: None. ADMITTING DIAGNOSES: 1. . COPD exacerbation 2. . Pneumonia 3. . Acute kidney injury superimposed on chronic kidney disease DISCHARGE DIAGNOSES: 1. . COPD exacerbation 2. . Pneumonia 3. . Acute kidney injury superimposed on chronic kidney disease COMPLICATIONS/CHIEF COMPLAINT: Acute Renal Failure,Mental Retardation,Resp Failur. HISTORY OF PRESENT ILLNESS: . 81-year-old male with past medical history of mental retardation, unspecified psychiatric disorder, type 2 diabetes mellitus, CKD stage III, hypertension, dyslipidemia, blindness secondary to glaucoma, anemia of chronic disease, and COPD presented to the ER after his refrigerating engineer head noted that the patient had worsening shortness of breath. The patient history is limited given his baseline cognitive status. However, in the ER the patient was noted to be saturating in the 70s. He was admitted to the hospitalist service for further evaluation and management. During hospitalization, a chest x-ray revealed an acute infiltrate in the right phrenic angle. The patient was subsequently started on IV antibiotics and IV Solu-Medrol which was escalating transitioned to by mouth. The patient's respiratory status significantly improved thereafter. In addition, the patient was found to have an acute kidney injury superimposed on chronic kidney disease. The patient's renal function did return back to baseline after IV fluid hydration. At this time, the patient's mentation has returned back to its baseline. He has remained afebrile and has not had any acute issues since he was treated with his initial diagnoses. The patient will be discharged today back to his primary caregiver Cindi Murphy. The patient will need to be seen by his primary care physician within one week. DISCHARGE MEDICATIONS: Please see below. ALLERGIES: Please see below. PHYSICAL EXAMINATION ON DISCHARGE: VITAL SIGNS: Please see below. General Exam: Positive: No Acute Distress ENT Exam: Positive: Atraumatic, Mucous membr. moist/pink Neck Exam: Negative: JVD Chest Exam: Positive: Clear to auscultation, Diminished Heart Exam: Positive: Rate Normal, Normal S1, Normal S2 Abdomen Exam: Positive: Soft, Negative: Tenderness Extremity Exam: Negative: Tenderness, Swelling LABORATORY DATA: Please see below. IMAGING: Portable chest, single AP view, the patient upright, 03:34 p.m., 01/20/2017. Comparisons are the AP supine chest 10/05/2016, APC sitting chest of 09/28/[address] of 09/28/2016. There is cardiomegaly, unchanged. There is focal increased parenchymal density in the right cardiophrenic angle as an interval change. This is a likely an acute infiltrate. There is diffuse interstitial coarsening, unchanged. PROGNOSIS: Medically stable ACTIVITY: As tolerated. DIET: . Carb consistent diet DISCHARGE PLAN: Home with caregiver DISPOSITION: . DISCHARGE INSTRUCTIONS: 1. . Follow-up with primary care physician within one week 2. . Return to ER if symptoms persist or worsen DISCHARGE CONDITION: Stable. TIME SPENT ON DISCHARGE: Greater than 30 minutes. Vital Signs/I&Os Vital Signs Date Time Temp Pulse Resp B/P (MAP) Pulse Ox O2 Delivery O2 Flow Rate FiO2 01/31/17 08:50 92 140/60 01/31/17 08:45 Room Air 01/31/17 06:00 97.7 19 92 01/28/17 06:00 2.0 I&O- Last 24 Hours up to 6 AM 01/31/17 06:00 Intake Total 1480 ml Output Total 1950 ml Balance -470 ml Laboratory Data Labs 24H Laboratory Tests 2 01/30/17 16:44: Bedside Glucose (Misc Panel) 203H 01/30/17 19:56: Bedside Glucose (Misc Panel) 205H 01/31/17 06:55: Anion Gap 6L, Glomerular Filtration Rate > 60.0, Blood Urea Nitrogen 28H, Creatinine 1.15, Sodium Level 139, Potassium Level 4.8, Chloride Level 104, Carbon Dioxide Level 29, Calcium Level 9.2 01/31/17 11:48: Bedside Glucose (Misc Panel) 168H CBC/BMP Laboratory Tests 01/31/17 06:55 Red Blood Count 3.47 L, Mean Corpuscular Volume 94.1, Mean Corpuscular Hemoglobin 30.7, Mean Corpuscular Hemoglobin Concent 32.6, Red Cell Distribution Width 13.0, Calcium Level 9.2 FSBS Laboratory Tests Test 01/30/17 16:44 01/30/17 19:56 01/31/17 11:48 Range/Units Bedside Glucose (Misc Panel) 203 205 168 83-110 MG/DL Microbiology Microbiology 01/29/17 Stool Occult Blood (MALA) - Final, Complete 01/23/17 Gram Stain - Final, Complete 01/23/17 Sputum Culture - Final, Complete Discharge Medications Scheduled ([place] 500) 500 Mg Tab, 500 MG PO DAILY, (Reported) PT IS NOT A GOOD HISTORIAN. OBTAINED FROM HIS PHARMACY Amlodipine Besylate (Amlodipine Besylate) 5 Mg Tab, 5 MG PO DAILY, (Reported) PT IS NOT A GOOD HISTORIAN, OBTAINED FROM EXT. MED LIST Aspirin (Aspirin) 325 Mg Tab, 325 MG PO DAILY, (Reported) Brimonidine Tartrate 0.15% (Alphagan P) 0.15 % Dimple, 1 DROP OD DAILY, (Reported) Calcium Polycarbophil (Fiber) 625 Mg Tab, 1,250 MG PO BID, (Reported) PT IS NOT A GOOD HISTORIAN. OBTAINED FROM HIS PHARMACY Docusate Sodium (Colace) 100 Mg Cap, 200 MG PO BID, (Reported) PT IS NOT A GOOD HISTORIAN. OBTAINED FROM HIS PHARMACY. Dorzolamide HCl (Dorzolamide HCl) 200 Drop/10 Ml Soln, 1 DROP OD DAILY, ( Reported) Ferrous Gluconate (Ferrous Gluconate) 324 Mg Tab, 324 MG PO DAILY, (Reported) Finasteride (Finasteride) 5 Mg Tab, 5 MG PO DAILY, (Reported) Lactulose (Lactulose) 10 Gm/15 Ml Dimple, 30 ML PO DAILY, (Reported) Lisinopril (Lisinopril) 20 Mg Tab, 20 MG PO DAILY, (Reported) Lovastatin (Lovastatin) 20 Mg Tab, 20 MG PO QHS, (Reported) Olanzapine (Olanzapine) 15 Mg Tab, 15 MG PO QHS, (Reported) Pilocarpine HCl (Pilocarpine HCl) 1 % Dimple, 1 DROP OU DAILY, (Reported) Tamsulosin Hydrochloride (Flomax) 0.4 Mg Cap, 1 CAP PO DAILY, (Reported) Timolol Maleate (Timolol Maleate) 0.5 % Dimple, 1 DROP OU DAILY, (Reported) Scheduled PRN Acetaminophen (Tylenol Extra Strength) 500 Mg Tab, 1,000 MG PO Q4H PRN for PAIN, (Reported) Furosemide (Furosemide) 40 Mg Tab, 40 MG PO DAILY PRN for EDEMA, (Reported) PT IS NOT A GOOD HISTORIAN. OBTAINED FROM HIS PHARMACY Magnesium Citrate (Citrate of Magnesia) 300 Ml Soln, 1 BOTTLE PO for CONSTIPATION, (Reported) Allergies Coded Allergies: No Known Allergies (Verified , 02/17/03) SANAM MALDONADO MD Jan 31, 2017 13:09
== END 2017-01-31 13:37 | disposition home health service (06) | DRG 189 ==
LOC: EDBD 14:53 → M ED 14:53 → M ED INP 18:20 → M PCU 20:32 → M MSPAV 01-22 14:01
PROVIDERS: ADMIT Hospitalist; ATTEND Internal Medicine
PROC: 30233N1 Transfusion of Nonautologous Red Blood Cells into Peripheral Vein, Percutaneous Approach (ICD-10-PCS; principal; 2017-01-22)
DX: J96.21 Acute and chronic respiratory failure with hypoxia (principal); J18.9 Pneumonia, unspecified organism; J44.1 Chronic obstructive pulmonary disease with (acute) exacerbation; N17.9 Acute kidney failure, unspecified; E87.0 Hyperosmolality and hypernatremia; E11.9 Type 2 diabetes mellitus without complications; N18.3 Chronic kidney disease, stage 3 (moderate); I12.9 Hypertensive chronic kidney disease with stage 1 through stage 4 chronic kidney disease, or unspecified chronic kidney disease; E78.5 Hyperlipidemia, unspecified; D63.8 Anemia in other chronic diseases classified elsewhere; F79 Unspecified intellectual disabilities; H54.0 Blindness, both eyes; H40.9 Unspecified glaucoma; M81.0 Age-related osteoporosis without current pathological fracture; N40.0 Benign prostatic hyperplasia without lower urinary tract symptoms; F99 Mental disorder, not otherwise specified; Z79.899 Other long term (current) drug therapy; Y95 Nosocomial condition; K59.00 Constipation, unspecified; D23.5 Other benign neoplasm of skin of trunk